=== PATIENT | female | born 1945 | race Hispanic/Latino ===

== ENCOUNTER 2017-08-12 15:55 | Inpatient (IN) | payer OTHER, MEDICARE ==
[~2017-08-12] VITALS: Ht 147.3 cm; Wt 86.3 kg
[~2017-08-12 15:55] MED LIST: DULOXETINE HCL60 MG PO; ESCITALOPRAM OX10 MG PO; ISOSORBIDE MONO30 M1 PO; JANUVIA100 M1 PO; LISINOPRIL-HCT1 EACH PO; PANTOPRAZOLE SO40 M1 PO; VENTOLIN HFA18 GM INH
--- NOTE | 2017-08-12 16:09 | ED DYSPNEA/ASTHMA COMPLAINT ---
History of Present Illness General Chief Complaint: Wheezing/Asthma Stated Complaint: "ASTHMA" PER PT SPO2 95% AT VIDEOTAPE EDITOR Source: patient, family Exam Limitations: language barrier Vital Signs & Intake/Output Vital Signs & Intake/Output Vital Signs Date Time Temp Pulse Resp B/P B/P Pulse O2 O2 Flow FiO2 Mean Ox Delivery Rate 08/21 1003 98.1 59 20 118/62 08/21 0639 98.1 59 20 118/62 95 ED Intake and Output 08/22 0000 08/21 1200 Intake Total 480 Output Total Balance 480 Intake, Oral 480 Allergies Coded Allergies: aspirin (HIVES 05/26/17) Reconcile Medications Albuterol Sulfate (Ventolin Hfa) 90 MCG HFA.AER.AD 2 PUF INH Q4-6 PRN PRN SHORTNESS OF BREATH Atorvastatin Calcium 10 MG TABLET 1 TAB PO DAILY CHOLESTEROL (Reported) Budesonide/Formoterol Fumarate (Symbicort 160-4.5 Mcg Inhaler) 160 MCG-4.5 MCG/ ACTUATION HFA.AER.AD 2 PUF INH BID asthma .. Duloxetine Hydrochloride (Cymbalta) 20 MG CAPSULE.DR 1 CAP PO DAILY MENTAL HEALTH (Reported) Escitalopram Oxalate 10 MG TABLET 1 TAB PO DAILY MENTAL HEALTH (Reported) Gabapentin 300 MG CAPSULE 1 CAP PO TID NERVE PAIN (Reported) Hydrochlorothiazide 12.5 MG CAPSULE 1 TAB PO DAILY BLOOD PRESSURE .. Insulin Aspart (Novolog) 100 UNIT/ML VIAL DM (Reported) please use as per your PCPs recommendations Losartan Potassium 50 MG TABLET 50 MG PO DAILY Blood pressure .. Melatonin 5 MG TABLET 1 TAB PO QPM SUPPLEMENT (Reported) Meloxicam 7.5 MG TABLET 1 TAB PO DAILY PAIN/INFLAMMATION (Reported) Mometasone Furoate (Nasonex) 50 MCG SPRAY.PUMP 1 SPRAY NASB TID ALLERGIES ( Reported) Pantoprazole Sodium 40 MG TABLET.DR 1 TAB PO DAILY ACID REFLUX (Reported) Prednisone 10 MG TABLET 0 PO DAILY ASTHMA PLEASE TAKE DATE TAB 08/22 2 08/23 1 .. Sitagliptin Phosphate (Januvia) 100 MG TABLET 1 TAB PO DAILY DIABETES ( Reported) Triage Note: PT FROM HOME C/O SOB/ ASTHMA ATTACK. PT BARLEY SPEAKS URDU, PTS COUSIN IN TRIAGE IS TRANSLATING FOR PT. PT STATES THAT SINCE YESTERDAY MORNING SHE HAS HAD DIFFICULTY BREATHING. PT IS WHEEZING IN TRIAGE, WORK OF BREATHING, 94% ON RA. PT STATES SHE LAST USED AN ALBUTEROL INHALER AND NEB TREATMENT AROUND 1230 WITH NO RELIEF. PT STATES SHE HAS BEEN TAKING CARE OF HER 90 YEAR OLD MOTHER WHO HAS ASTHMA AND BRONCHITIS WELL. 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 Triage Nurses Notes Reviewed? yes Onset: Abrupt Duration: day(s): (2) Timing: multiple episodes today HPI: 71 year old female with history of asthma, bradycardia x 20 years presents with 1.5 days of cough, congestion and headache. No relief with neb treatments at home. She has been taking care of her aged mother who currently is being treated for bronchitis. NO history of CHF. Patient is a nonsmoker. Patient with history of admission to hospital for asthma 1 year ago. Past History Travel History Traveled to [place] past 21 day No Medical History Any Pertinent Medical History? see below for history Cardiovascular: hypertension, hyperlipidemia, bradycardia Respiratory: asthma Endocrine: diabetes Surgical History Surgical History: cholecystectomy, cataract removal, KNEE REPLACEMENT, GASTRIC BYPASS Psychosocial History What is your primary language Setswana Tobacco Use: Never used Family History Hx Contributory? No Review of Systems Review of Systems Constitutional: Denies: fever. EENTM: Reports: no symptoms. Respiratory: Reports: cough, short of breath, sputum production. Cardiovascular: Reports: see HPI (chest tightness). Denies: palpitations, peripheral edema. GI: Denies: bloating. Genitourinary: Reports: no symptoms. Musculoskeletal: Denies: back pain. Skin: Reports: no symptoms. Neurological/Psychological: Reports: no symptoms. Hematologic/Endocrine: Denies: bruising, bleeding, polyuria, polydipsia. Immunologic/Allergic: Denies: splenectomy. All Other Systems: Reviewed and Negative Physical Exam Physical Exam General Appearance: well developed/nourished, alert, awake, anxious Head: atraumatic, normal appearance Eyes: Bilateral: normal appearance, PERRL, EOMI. Respiratory: accessory muscle use, wheezing, respiratory distress Peripheral Pulses: 2+ radial (R), 2+ radial (L) Core Measures ACS in differential dx? Yes CVA/TIA Diagnosis No Sepsis Present: No Sepsis Focused Exam Completed? No Progress Differential Diagnosis: asthma, bronchitis, CHF, pulmonary embolism, pneumonia Plan of Care: Orders Procedure Date/time Status Discharge Patient 08/21 UNK Active Laboratory Tests 08/21/17 0617: Anion Gap 8, Estimated GFR > 60, BUN/Creatinine Ratio 26.3 H, CBC w Diff NO MAN DIFF REQ, RBC 4.13 L, MCV 88.4, MCH 28.6, MCHC 32.4 L, RDW 15.1 H, MPV 10.1, Gran % 59.5, Lymphocytes % 33.1, Monocytes % 5.9, Eosinophils % 1.3, Basophils % 0.2, Absolute Granulocytes 6.5, Absolute Lymphocytes 3.6 H, Absolute Monocytes 0.6, Absolute Eosinophils 0.1, Absolute Basophils 0 ALBUTEROL NEBS, IV SOLUMEDROL Diagnostic Imaging: Viewed by Me: Radiology Read. Discussed w/RAD: Radiology Read. CXR Impression: PATIENT: MAGI POLO PRESENT AGE: 71 PATIENT ACCOUNT NO: [id number] : 47 LOCATION: [facility] ORDERING PHYSICIAN: Jaquelin Chambers MD SERVICE DATE: 08/12/17 EXAM TYPE: RAD - XRY-PORTABLE CHEST XRAY EXAMINATION: XR PORTABLE CHEST CLINICAL INFORMATION: Respiratory distress COMPARISON: Chest x-rays most recent prior dated 05/26/2017 TECHNIQUE: Portable frontal view of the chest was obtained. FINDINGS: Cardiomegaly. Lungs are clear. No acute airspace opacity. Visualized bony thorax is intact. IMPRESSION: No acute pulmonary disease. DICTATED BY: Emilia Bailon MD DATE/TIME DICTATED:08/12/171706 IMMUNOLOGY SPECIALIST:CHARLETTE DATE/ TIME TRANSCRIBED:08/12/171706 CONFIDENTIAL, DO NOT COPY WITHOUT APPROPRIATE AUTHORIZATION. <Electronically signed in Other Vendor System> SIGNED BY: Emilia Bailon MD 08/12/171710 Initial ED EKG: NSR, LVH Departure Departure Time of Disposition: 1847 Disposition: STILL A PATIENT Condition: Stable Clinical Impression Primary Impression: Asthma exacerbation Referrals: Viv Nam MD (PCP/Family) Departure Forms: Customer Survey General Discharge Information Prescriptions: Current Visit Scripts Budesonide/Formoterol Fumarate (Symbicort 160-4.5 Mcg Inhaler) 2 PUF INH BID #1 INH Ref 2 .. Hydrochlorothiazide 1 TAB PO DAILY #30 TAB .. Losartan Potassium 50 MG PO DAILY #30 TAB .. Prednisone 0 PO DAILY #3 TAB PLEASE TAKE DATE TAB 08/22 2 08/23 1 .. Admission Note Spoke With: Samantha Mora MD Documentation of Exam: Documentation of any treatments & extenuating circumstances including Concerns Regarding Discharge (functional status, medication knowledge or non-compliance, living conditions, etc.) that warrant an admission rather than observation: [TRC /NEBS, IV STEROIDS, MONITOR I/O. PULMONARY EVALUATION, CARDIOLOGY EVALUATION, PATIENT BECAME VERY LABORED WHILE AMBULATING 10 FT, OXYGEN DROPPED TO 95% BUT PATIENT HAD MUCH MORE AUDIBLE WHEEZING AND INCREASED WORK OF BREATHING Critical Care Note Critical Care Note Critical Care Time: 30-74 min
[2017-08-12 16:59] LABS: ABSOLUTE BASOPHIL COUNT 0.1 /CUMM (0.0-0.2); ABSOLUTE EOSINOPHIL COUNT 0.3 /CUMM (0.0-0.7); ABSOLUTE LYMPH COUNT 2.6 /CUMM (1.2-3.4); ABSOLUTE MONOCYTE COUNT 0.6 /CUMM (0.10-0.60); BASOPHIL % 0.9 % (0.0-2.0); EOSINOPHIL % 5.3 % (0-5); GRANULOCYTE % 36.3 % (42.2-75.2); HEMATOCRIT 35.4 % (37-47); MEAN CORPUSCULAR HGB 28.2 PG (27.0-31.0); MEAN CORPUSCULAR HGB CONC 31.8 G/DL (33.0-37.0); MEAN CORPUSCULAR VOLUME 88.7 FL (81.0-99.0); MEAN PLATELET VOLUME 9.1 FL (7.4-10.4); PLATELET COUNT 184 /CUMM (130-400); RED BLOOD CELL CT 3.99 /CUMM (4.20-5.40); WHITE BLOOD CELL COUNT 5.6 /CUMM (4.8-10.8)
--- NOTE | 2017-08-12 17:11 | RADIOLOGY REPORT ---
EXAMINATION: XR PORTABLE CHEST CLINICAL INFORMATION: Respiratory distress COMPARISON: Chest x-rays most recent prior dated 05/26/2017 TECHNIQUE: Portable frontal view of the chest was obtained. FINDINGS: Cardiomegaly. Lungs are clear. No acute airspace opacity. Visualized bony thorax is intact. IMPRESSION: No acute pulmonary disease.
--- NOTE | 2017-08-12 19:35 | History & Physical ---
Bryce HO,[facility] 08/12/171934: General Information and HPI MD Statement: I have seen and personally examined MAGI POLO and documented this H&P. The patient is a 71 year old F who presented with a patient stated chief complaint of [sob]. Source of Information: patient, family Exam Limitations: language barrier History of Present Illness: 71 yo F pmhx asthma, diabetes, htn, hld, bradycardia presenting for SOB. Pt is taiwanese speaking only and hx is given via translation from her cousin. Patient states that her SOB has been worsening the past 2-3 hrs. Wheezing started yesterday. Pt was with family today after family's surgery and was found to have increased wheezing which prompted the family member to drive the pt to the ED. Pt states she had had similar sx in the past which has led to admissions for asthma exascerbation. She had 1-2 episodes of asthma exascerbation weekly but is now having night time symptoms several times throughout the night for the past 2 -3 nights. Pt states she has been using nebs more often (q4hrs) which she does not take regularly. States that she has been using her inhaler more often (q4hrs ) which she only takes 1x/day at baseline. States that she has cough - nonproductive and clear but worst at night. She also complains of headaches and congestion which starts at her frontal sinus and spread b/l. States she has chills, [place], dizzyness, light headedness. Also complaining of dysuria x1 week. Complains of CP, non radiating. States palpitations are associated with coughs. She is currently taking care of her mother who has bronchitis. The patient states that she lost her grand daughter in May and since then, her symptoms have worsened She denies any fevers, or GI bleed. She does complain of abd pain but states pain is unchagned and chronic. Allergies/Medications Allergies: Coded Allergies: aspirin (HIVES 05/26/17) Home Med list Albuterol Sulfate (Ventolin Hfa) 90 MCG HFA.AER.AD 2 PUF INH Q4-6 PRN PRN SHORTNESS OF BREATH Atorvastatin Calcium 10 MG TABLET 1 TAB PO DAILY CHOLESTEROL (Reported) Duloxetine Hydrochloride (Cymbalta) 20 MG CAPSULE. 1 CAP PO DAILY MENTAL HEALTH (Reported) Escitalopram Oxalate 10 MG TABLET 1 TAB PO DAILY MENTAL HEALTH (Reported) Gabapentin 300 MG CAPSULE 1 CAP PO TID NERVE PAIN (Reported) Insulin Aspart (Novolog) 100 UNIT/ML VIAL DM (Reported) Lisinopril/Hydrochlorothiazide (Lisinopril-Hctz 20-12.5 MG Tab) 20 MG-12.5 MG TABLET 1 TAB PO DAILY BP (Reported) Melatonin 5 MG TABLET 1 TAB PO QPM SUPPLEMENT (Reported) Meloxicam 7.5 MG TABLET 1 TAB PO DAILY PAIN/INFLAMMATION (Reported) Mometasone Furoate (Nasonex) 50 MCG SPRAY.PUMP 1 SPRAY NASB TID ALLERGIES ( Reported) Pantoprazole Sodium 40 MG TABLET.DR 1 TAB PO DAILY ACID REFLUX (Reported) Sitagliptin Phosphate (Januvia) 100 MG TABLET 1 TAB PO DAILY DIABETES ( Reported) Past History Travel History Traveled to [place] past 21 day No Medical History Cardiovascular: hypertension, hyperlipidemia, bradycardia Respiratory: asthma Endocrine: diabetes Surgical History Surgical History: cholecystectomy, cataract removal, KNEE REPLACEMENT GASTRIC BYPASS Review of Systems Review of Systems Constitutional: Reports: see HPI, chills. EENTM: Reports: blurred vision, nasal congestion. Respiratory: Reports: cough, short of breath, wheezing. GI: Reports: see HPI. Genitourinary: Reports: see HPI, dysuria. Exam & Diagnostic Data Last 24 Hrs of Vital Signs/I&O Vital Signs Date Time Temp Pulse Resp B/P B/P Pulse O2 O2 Flow FiO2 Mean Ox Delivery Rate 08/13 0000 Nasal 1.0L Cannula 08/12 2304 98.3 60 28 132/78 91 Nasal Cannula 08/12 2229 Nasal 1.0L Cannula 08/12 2108 98.3 80 24 148/65 93 Nasal 2.0L Cannula 08/12 1832 96 Nasal 1.0L Cannula 08/12 1809 97.7 60 24 154/76 99 Nasal 2.0L Cannula 08/12 1630 100 Nasal 2.0L Cannula 08/12 1614 100 Nasal 2.0L Cannula 08/12 1603 97.8 54 20 158/78 94 Room Air Intake & Output 08/13 0800 08/13 0000 08/12 1600 Intake Total 120 Output Total Balance 120 Intake, Oral 120 Patient 215 lb Weight Weight Standing Scale Measurement Method Physical Exam General Appearance Alert, Oriented X3, Cooperative, taiwanese speaking only HEENT frontal and maxillary sinus tenderness, normal ear exam Cardiovascular 2+ radial and pedal pulses, chest tender to palpation, systolic murmur Lungs Clear to Auscultation, Normal Air Movement Abdomen decrease abd sounds, soft, nontender Neurological CN2-12 grossly intact Extremities no edema of LE Last 24 Hrs of Labs/Mariusz: Laboratory Tests 08/13/17 0000: Urine Color YEL, Urine Clarity CLEAR, Urine pH 6.0, Ur Specific [place] 1.020, Urine Protein NEG, Urine Ketones NEG, Urine Nitrite NEG, Urine Bilirubin NEG, Urine Urobilinogen 2.0 H, Ur Leukocyte Esterase NEG, Ur Microscopic EXAM NOT REQUIRED, Urine Hemoglobin NEG, Urine Glucose 100 H 08/12/17 2250: D-Dimer High Sensitivty 458 H 08/12/17 1917: Lactic Acid Cancelled 08/12/17 1645: Anion Gap 9, Estimated GFR > 60, BUN/Creatinine Ratio 21.3, Glucose 97, Lactic Acid 0.8, Calcium 9.0, Total Bilirubin 0.2, AST 28, ALT 30, Alkaline Phosphatase 92, Troponin I < 0.01, Ubq-H-Hsapszsflmz Pept 247 H, Total Protein 6.0 L, Albumin 3.3 L, Globulin 2.7, Albumin/Globulin Ratio 1.2, CBC w Diff NO MAN DIFF REQ, RBC 3.99 L, MCV 88.7, MCH 28.2, MCHC 31.8 L, RDW 15.0 H, MPV 9.1, Gran % 36.3 L, Lymphocytes % 46.2, Monocytes % 11.3 H, Eosinophils % 5.3 H, Basophils % 0.9, Absolute Granulocytes 2.0, Absolute Lymphocytes 2.6, Absolute Monocytes 0.6, Absolute Eosinophils 0.3, Absolute Basophils 0.1 Microbiology 08/137 NASOPHARYN: Influenza Virus A & B Rapid Smear - COMP 08/13 0000 URINE ROUT: Urine Culture - RECD Assessment/Plan Assessment: 71 yo F pmhx asthma, diabetes, htn, hld, bradycardia presenting for SOB most likely 2/2 asthma exascerbation #asthma exascerbation cxr: negative probnp 247 -cont trc nebs, solumedrol IV #r/o acs vs costochrondritis More likely costochrondritis as pain is reproducible trops <.01 -repeat trops @ 2am and 10am #diabetes -novolog sliding scale #chronic medical conditions:insomnia, htn, chronic pain, hld, gerd, -cont melatnon, -cont lisinopril, hctz -cont gabapentin, tramadol -cont atorvastain -cont omeprazole #DVT ppx heparin subq #DNR DNI As Ranked By This Provider Problem List: 1. Asthma exacerbation 2. Chest pain Core Measures/Misc (02/21) Acute Coronary Syndrome ACS Diagnosis: No Congestive Heart Failure Congestive Heart Failure Diagnosis No Cerebrovascular Accident CVA/TIA Diagnosis: No VTE (View Protocol) VTE Risk Factors Acute Medical Illness No Mechanical VTE Prophylaxis d/t Other No VTE Pharm Prophylaxis d/t NA PharmProphylax ordered Sepsis (View protocol) Sepsis Present: No Joy Morley 08/12/17 2238: Resident Review Statement Resident Statement: examined this patient, discussed with digital media intern, agreed with digital media intern, reviewed images, amended to note Other Findings: Ms Thomason is a 71-year-old woman with a past history of asthma, bradycardia, depression gastric bypass, came to the hospital with chief concerns of worsening dyspnea at rest X 1 day, lightheadedness, nasal congestion, dysuria, and chest discomfort associated w/ breathing. She used albuterol nebs upto 6x in a day, with no relief. She started developing worsening symptoms since three months after a in her family, and has been having symptoms almost every other day in a week, with nocturnal symptoms in the same frequency. She was using her rescue inhaler until recently when she started using her neb machine. She was also associated w/ chest pressure located in the lower part of the left side of chest with no radiation, associated w/ breathing w/ no radiation. She also had nasal congestion, non productive cough that started in the last few days. Occassional palpitations when she uses her nebs, and has dyspnea. Reports that she is minimally ambulatory at baseline, but does take care of her old mother daily without any limitations. At the time of admission-vitals temperature 97.8, pulse rate 54, blood pressure 158/78, respiration 20, pulse ox 94% on room air. On examination: General Exam: AAOx3, mild acute distress, Skin: No rashes, no breakdown HEENT: PERRLA, EOMI Neck: Supple, No JVD No cervical lymphadenopathy CVS: Reg Rate, Normal S1,S2, systolic murmur Resp: decreased air entry, no ronchi/rales, no use of respiratory muscles Abdomen: Soft, No tenderness, Normal Bowel Sounds Neuro: Normal Speech, Strength 5/5 b/l x 4 extremities, Sensation intact, CN III -XII NL, Reflexes 2+ Extremities: No cyanosis, pedal edema trace, RLE slightly more swollen > Left with no erythema or tenderness. WBC 5.6 w/ eosinophilia, hematocrit 35.4, platelets 184. Sodium 140, potassium 4.4, chloride 106, BUN 17, creatinine 0.8, proBNP 247. Chest f-dex-ilnxzrps no acute pulmonary disease. Last echocardiogram was done 06/12/2015 which was read by Davin Mattson revealed Mild concentric left ventricular hypertrophy. Normal left ventricular ejection fraction visually estimated at >65 The left atrium is normal in size. Mild thickening/calcification of the mitral valve leaflets. No mitral regurgitation. Focal thickening of the aortic valve cusps. No aortic stenosis. Pulmonary artery systolic pressure is mildly elevated at 35-40 mm Hg. Etiology in her case is slightly severe persistent asthma; symptoms of dyspnea, chest tightness, cough, tachycardia consistent with asthma. She has a persistent respiratory distress in the last 24 hours, which would favor an inpatient admission. She does not have any prior intubation or steroid use. Other etiologies such as allergies, myocardial ischemia, elevated pulmonary artery pressures secondary to obesity/asthma, pneumonia, pulmonary embolism could be kept and differentials. Problems: #1 sev persistent asthma #2 history of bradycardia #3 Rule out ACS #4 Rule out PE #5 ? r/o UTI #6 history of Bradycardia #7 Diabetes Plan: #1 admit the patient to telemetry given her history of bradycardia #2 serial EKGs, troponins to rule out WI #3 for treatment of asthma, she was given IV Solu-Medrol in the ED; continue Solu-Medrol IV 40 mg every 8 which could be tapered off quickly if the symptoms resolve. She should be treated with short-acting beta agonist at this time, along with a anticholinergic. #4 obtained records from her PCP confirming her medications. #5 restart antihypertensives, lisinopril, hydrocodone as an a.m. #6 avoid beta blockers #7 continue her antidepressants Cymbalta. #8 patient allergy to aspirin, and was not given any aspirin in the ED. Would administer if she has any chest pain suggestive of WI or elevated and troponin. #9 check d-dimer, if elevated above 500 would consider CTA #10 check lower activity Dopplers to rule out any DVT. Housekeeping: #1 DVT prophylaxis-subcutaneous heparin #2 medication reconciliation-done, but confirm medications from her primary care physician. #3 GI prophylaxis-Protonix #4 DO NOT RESUSCITATE/DO NOT INTUBATE-as per the patient, and her family member. Samantha Mora 08/13/17 0236: Attending MD Review Statement Attending Statement Attending MD Statement: examined this patient, discuss w/resident/PA/WORKERS COMPENSATION EXAMINER, agreed w/resident/PA/WORKERS COMPENSATION EXAMINER, discussed with family, reviewed EMR data (avail), reviewed images, amended to note Attending Assessment/Plan: CC: Shortness of breath PMH: Depression, HTN, HLD, bradycardia, asthma, DM, sinusitis Is obtain from patient's relative as patient speaks mostly Zambian. Patient was brought in ER for persistent shortness of breath. Her symptoms started approximately 3-4 days back with worsening breathing, exertional and at rest, associated with wheezing, and nonproductive cough. Since yesterday patient was also noticing central substernal chest pain, going to her left side of the chest under the breast, related to worsening shortness of breath. Patient has been using nebulization every 4 hours at home without significant relief, has been up whole night with shortness of breath. She also endorses frontal headache, left ear pain, urinary burning since last 2 weeks. She had chills at home but no fever, had nausea and mild dizziness, no history of loss of consciousness, neurological weakness. Patient has been taking care of her sick mother who also has bronchitis and asthma. Vitals: Afebrile, pulse in 60s, RR 24, blood pressure 158/78, saturating 94% on 2 L nasal cannula. On exam: A O 3, cooperative, mild respiratory distress, neck supple, JVD normal , no lymphadenopathy, mucosa dry, no focal neurological deficit, trace leg edema , right lower extremity appears slightly bigger than left lower extremity, no obvious skin rashes or inflammation CVS: S1-S2, RRR, systolic murmur. RS: Bilateral wheezing, no crackles, decreased air entry bilaterally bases. Abdomen: Soft, NT, ND, bowel sounds present. CXR: No acute pulmonary disease. Assessment and plan 71-year-old female with above-mentioned past medical history presented in ER for worsening of shortness of breath since last 2-3 days, exertional and at rest, associated with wheezing, nonproductive cough, chills, chest pain, frontal headache and ear pain. Vitals stable, on examination she has bilateral expiratory wheezing, no crackles or JVD, trace leg edema, and equal leg swelling R>L. labs unremarkable except monocytosis and eosinophilia, troponin and ECG normal. ProBNP 247. Patient appears to have asthma exacerbation. Given her comorbidities ACS should be ruled out given her chest pain. PE should be ruled out with d-dimer. She has unequal leg swellings probably secondary to osteoarthritis , DVT should be ruled out patient is not active as much secondary to arthritis. As this is asthma exacerbation, we will hold off antibiotics for now, check influenza. + Asthma exacerbation + Chest pain r/o ACS + Hx of Depression, HTN, HLD, bradycardia, asthma, DM, sinusitis - Admit to telemetry - Try to wean off oxygen - IV methylprednisolone 40 mg every 8 hours - TRC nebulization with albuterol scheduled and when necessary - Mucinex scheduled twice a day - Continue rest of the home medications, except sitagliptin, continue sliding scale insulin - Serial troponin and ECG - Added d-dimer to the sample in lab - Check influenza rapid flu - Adequate pain control - DVT prophylaxis - Flonase - Cardiology consult - UA urine culture, start antibiotics if suggestive of UTI - DVT doppler Franklyn LE
[2017-08-12] MEDS ORDERED: GABAPENTIN300 M2 PO (20:12)
[2017-08-12] MEDS ORDERED: CYMBALTA20 M1 PO (20:24)
[2017-08-12] MEDS ORDERED: ATORVASTATIN CA10 M1 PO (20:25)
[2017-08-12] MEDS ORDERED: MELATONIN5 M7 PO (20:29)
[2017-08-12] MEDS ORDERED: NOVOLOG100 UNIT/2 SC (20:30)
[2017-08-12] MEDS ORDERED: MELOXICAM7.5 M1 PO (20:30)
[2017-08-12] MEDS ORDERED: NASONEX17 GM NASB (20:31)
[2017-08-12 23:04] VITALS: BP 132/78
--- NOTE | 2017-08-13 02:40 | Admission Certification ---
Admission Certification Certification Statement - As attending physician, I certify that at the time of - admission, based on clinical presentation, severity of - symptoms, need for further diagnostic testing and - therapeutic interventions, and risk of adverse outcomes - without in-hospital treatment, in my clinical assessment, - this patient requires an acute hospital stay for a minimum - of two nights or longer. I have also considered psychsocial - factors such as support system, advanced age, financial - issues, cognitive issues, and failed out-patient treatments, - past re-admission history, safety of patient, and lack of - compliance as applicable. Specific rationale supporting this admission is: Asthma exacerbation
[2017-08-13 06:17] VITALS: BP 118/62
--- NOTE | 2017-08-13 07:59 | PN- Housestaff ---
See Addendum Subjective Follow-up For: asthma exacerbation Tele-Events Since Last Visit: sinus bradycardia HR 38-52 Subjective: complaining of significant wheezing and dyspnea, on supplemental oxygen via nasal cannula afebrile Review of Systems Constitutional: Reports: see HPI. Objective Last 24 Hrs of Vital Signs/I&O Vital Signs Date Time Temp Pulse Resp B/P B/P Pulse O2 O2 Flow FiO2 Mean Ox Delivery Rate 08/13 1025 Nasal 1.0L Cannula 08/13 0909 58 120/60 08/13 0830 93 Nasal 1.0L Cannula 08/13 0617 98.0 48 18 118/62 93 08/13 0000 Nasal 1.0L Cannula 08/12 2304 98.3 60 28 132/78 91 Nasal Cannula 08/12 2229 Nasal 1.0L Cannula 08/12 2108 98.3 80 24 148/65 93 Nasal 2.0L Cannula 08/12 1832 96 Nasal 1.0L Cannula 08/12 1809 97.7 60 24 154/76 99 Nasal 2.0L Cannula 08/12 1630 100 Nasal 2.0L Cannula 08/12 1614 100 Nasal 2.0L Cannula 08/12 1603 97.8 54 20 158/78 94 Room Air Intake & Output 08/13 1600 08/13 0800 08/13 0000 Intake Total 10 120 Output Total 500 Balance -490 120 Intake, IV 10 Intake, Oral 120 Output, Urine 500 Patient 97.607 kg Weight Weight Standing Scale Measurement Method Physical Exam General Appearance: Alert, Oriented X3, Cooperative, No Acute Distress, obese Cardiovascular: Normal S1, Normal S2, No Murmurs, bradycardic Lungs: significant wheezing diffusely but no respiratory distress, adequate air movement, no accessory muscle use or tachypnea Abdomen: Normal Bowel Sounds, Soft, No Tenderness, No Masses Extremities: No Clubbing, No Cyanosis, Normal Pulses, bilateral LE edema 1+ Current Medications: Current Medications Sig/Jan Start time Last Medication Dose Route Stop Time Status Admin Acetaminophen 650 MG Q8P PRN 08/12 2245 AC 08/13 PO 0615 Albuterol Sulfate 3 ML EVERY 4 HRS/AWAKE 08/13 1200 AC INH Albuterol Sulfate 3 ML Q4H PRN 08/12 2200 DC 08/13 INH 0824 Albuterol Sulfate 3 ML ONCE ONE 08/12 1830 DC 08/12 INH 08/12 1831 1832 Albuterol Sulfate 3 ML ONCE ONE 08/12 1630 DC 08/12 INH 08/12 1631 1620 Albuterol Sulfate 3 ML ONCE ONE 08/12 1615 DC /08 INH 08/12 1616 1614 Aspirin 325 MG ONCE ONE 08/12 2245 CAN PO 08/12 2246 Atorvastatin Calcium 10 MG DAILY 08/13 1000 AC 08/13 PO 0910 Duloxetine HCl 20 MG DAILY 08/13 1000 AC 08/13 PO 0910 Fluticasone 2 SPRAY DAILY 08/13 1000 AC 08/13 Propionate SALEEM 0910 Gabapentin 300 MG TID 08/13 1000 AC 08/13 PO 0910 Guaifenesin 600 MG Q12 08/13 1000 AC 08/13 PO 0910 Heparin Sodium 5,000 UNIT Q8 08/12 2200 AC 08/13 (Porcine) SC 0614 Hydrochlorothiazide 12.5 MG DAILY 08/13 1000 AC 08/13 PO 0910 Influenza Virus 0.5 ML ONCE ONE 08/12 2300 DC Vaccine IM 08/12 2301 Insulin Aspart 0 TIDAC 08/12 2230 AC 08/13 SC 0827 Ipratropium [place] 2.5 ML Q4 HRS NEEDED PRN 08/13 0500 DC INH Ipratropium [place] 2.5 ML ONCE ONE 08/12 2200 DC INH 08/12 2201 Ipratropium [place] 2.5 ML ONCE ONE 08/12 1830 DC /08 INH 08/12 1831 1831 Ipratropium [place] 2.5 ML ONCE ONE 08/12 1615 DC 08 INH 08/12 1616 1614 Lisinopril 20 MG DAILY 08/13 1000 AC 08/13 PO 0909 Melatonin 5 MG QPM 08/13 2200 AC PO Methylprednisolone 40 MG Q8 08/13 0600 AC 08/13 IV 0610 Methylprednisolone 0 .STK-MED ONE 08/12 1712 DC .ROUTE Methylprednisolone 125 MG ONCE ONE 08/12 1630 DC 08/12 IV 08/12 1631 1715 Omeprazole 40 MG DAILY AC 08/13 0700 AC 08/13 PO 0610 Sodium Chloride 2 SPRAY Q4P PRN 08/12 2245 AC SALEEM Tramadol HCl 50 MG Q8P PRN 08/12 2245 AC 08/13 PO 1057 Last 24 Hrs of Lab/Mariusz Results Last 24 Hrs of Labs/Mics: Laboratory Tests 08/13/17 0630: Anion Gap 7, Estimated GFR > 60, BUN/Creatinine Ratio 22.9, Troponin I < 0.01, CBC w Diff NO MAN DIFF REQ, RBC 3.88 L, MCV 88.3, MCH 28.9, MCHC 32.8 L, RDW 14.6 H, MPV 10.0, Gran % 62.2, Lymphocytes % 33.5, Monocytes % 3.9, Eosinophils % 0.2, Basophils % 0.2, Absolute Granulocytes 2.1, Absolute Lymphocytes 1.1 L, Absolute Monocytes 0.1, Absolute Eosinophils 0, Absolute Basophils 0 08/13/17 0235: Troponin I Cancelled 08/13/17 0000: Urine Color YEL, Urine Clarity CLEAR, Urine pH 6.0, Ur Specific [place] 1.020, Urine Protein NEG, Urine Ketones NEG, Urine Nitrite NEG, Urine Bilirubin NEG, Urine Urobilinogen 2.0 H, Ur Leukocyte Esterase NEG, Ur Microscopic EXAM NOT REQUIRED, Urine Hemoglobin NEG, Urine Glucose 100 H 08/12/17 2250: D-Dimer High Sensitivty 458 H 08/12/17 1917: Lactic Acid Cancelled 08/12/17 1645: Anion Gap 9, Estimated GFR > 60, BUN/Creatinine Ratio 21.3, Glucose 97, Lactic Acid 0.8, Calcium 9.0, Total Bilirubin 0.2, AST 28, ALT 30, Alkaline Phosphatase 92, Troponin I < 0.01, [id number] Pept 247 H, Total Protein 6.0 L, Albumin 3.3 L, Globulin 2.7, Albumin/Globulin Ratio 1.2, CBC w Diff NO MAN DIFF REQ, RBC 3.99 L, MCV 88.7, MCH 28.2, MCHC 31.8 L, RDW 15.0 H, MPV 9.1, Gran % 36.3 L, Lymphocytes % 46.2, Monocytes % 11.3 H, Eosinophils % 5.3 H, Basophils % 0.9, Absolute Granulocytes 2.0, Absolute Lymphocytes 2.6, Absolute Monocytes 0.6, Absolute Eosinophils 0.3, Absolute Basophils 0.1 Microbiology 08/13 316 NASOPHARYN: Influenza Virus A & B Rapid Smear - COMP 08/13 0000 URINE ROUT: Urine Culture - RECD Assessment/Plan Assessment: 71 year old female with past medical history significant for asthma, diabetes, HTN, HLD, and bradycardia presented with complaints of wheezing and dyspnea. Asthma exacerbation: eosinophils elevated on cbc, h/o atopy and aspirin allergy Never smoker, exacerbated by environmental allergies, recent sick contacts Titrate supplemental oxygen to an SpO2 > 92% TRC evaluation Nebulized albuterol Measure peak flow Pulmology consultation, appreciate recommendations Received 125mg solumedrol IV, continue 40mg IV Q8H today Convert to PO prednisone tomorrow Previous ED visit 05/2017 with similar symptoms Chest CTA done at that negative for PE, +ground glass and small airway disease d-dimer remains elevated, no plan to repeat CTA Chest at this time Bradycardia: Sinus randall HR [id number]-dzydbxy negative chronotropic agents Cardiology consulted, appreciate recommendations May benefit from outpatient nuclear stress test DM: Accuchecks TIDAC/HS Novolog sliding scale HTN: Continue HCTZ ACEi changes to ARB HLD: Continue statin therapy Morbid obesity Class III-history of gastric bypass PO PPI BID Diabetic diet DVT ppx DNR/DNI Problem List: 1. Chest pain 2. Dyspnea 3. Asthma exacerbation Pain Ratin Pain Location: n/a Pain Goal: Pain 4 or less Pain Plan: prn Tomorrow's Labs & Rationales: cbc, bep
[2017-08-13 08:18] LABS: ABSOLUTE BASOPHIL COUNT 0 /CUMM (0.0-0.2); ABSOLUTE EOSINOPHIL COUNT 0 /CUMM (0.0-0.7); ABSOLUTE GRANULOCYTE CT 2.1 /CUMM (1.4-6.5); ABSOLUTE LYMPH COUNT 1.1 /CUMM (1.2-3.4); ABSOLUTE MONOCYTE COUNT 0.1 /CUMM (0.10-0.60); BASOPHIL % 0.2 % (0.0-2.0); EOSINOPHIL % 0.2 % (0-5); HEMATOCRIT 34.3 % (37-47); MEAN CORPUSCULAR HGB 28.9 PG (27.0-31.0); MEAN CORPUSCULAR HGB CONC 32.8 G/DL (33.0-37.0); MEAN CORPUSCULAR VOLUME 88.3 FL (81.0-99.0); PLATELET COUNT 184 /CUMM (130-400); RBC DISTRIBUTION WIDTH 14.6 % (11.5-14.5); RED BLOOD CELL CT 3.88 /CUMM (4.20-5.40); WHITE BLOOD CELL COUNT 3.3 /CUMM (4.8-10.8)
[2017-08-13 08:29] LABS: GRANULOCYTE % 62.2 % (42.2-75.2)
--- NOTE | 2017-08-13 12:56 | Cons- Pulmonary ---
General Information and HPI Consulting Request Date of Consult: 08/13/17 Requested By: MED TEAM History of Present Illness: 71 yo F pmhx asthma, diabetes, htn, hld, bradycardia presenting for SOB. Patient states that her SOB has been worsening wheezing started yesterday. Pt states she had had similar sx in the past which has led to admissions for asthma exascerbation. She had 1-2 episodes of asthma exascerbation weekly but is now having night time symptoms several times throughout the night for the past 2 -3 nights. Pt states she has been using nebs more often (q4hrs) which she does not take regularly. States that she has been using her inhaler more often (q4hrs) which she only takes 1x/day at baseline. States that she has cough - nonproductive and clear but worst at night. She also complains of headaches and congestion which starts at her frontal sinus and spread b/l. States she has chills, [place], dizzyness, light headedness. Also complaining of dysuria x1 week. Complains of CP, non radiating. States palpitations are associated with coughs. She is currently taking care of her mother who has bronchitis. The patient states that she lost her grand daughter in May and since then, her symptoms have worsened She denies any fevers, or GI bleed. She does complain of abd pain but states pain is unchagned and chronic. Allergies/Medications Allergies: Coded Allergies: aspirin (HIVES 05/26/17) Home Med List: Albuterol Sulfate (Ventolin Hfa) 90 MCG HFA.AER.AD 2 PUF INH Q4-6 PRN PRN SHORTNESS OF BREATH Atorvastatin Calcium 10 MG TABLET 1 TAB PO DAILY CHOLESTEROL (Reported) Duloxetine Hydrochloride (Cymbalta) 20 MG CAPSULE.DR 1 CAP PO DAILY MENTAL HEALTH (Reported) Escitalopram Oxalate 10 MG TABLET 1 TAB PO DAILY MENTAL HEALTH (Reported) Gabapentin 300 MG CAPSULE 1 CAP PO TID NERVE PAIN (Reported) Insulin Aspart (Novolog) 100 UNIT/ML VIAL DM (Reported) Lisinopril/Hydrochlorothiazide (Lisinopril-Hctz 20-12.5 MG Tab) 20 MG-12.5 MG TABLET 1 TAB PO DAILY BP (Reported) Melatonin 5 MG TABLET 1 TAB PO QPM SUPPLEMENT (Reported) Meloxicam 7.5 MG TABLET 1 TAB PO DAILY PAIN/INFLAMMATION (Reported) Mometasone Furoate (Nasonex) 50 MCG SPRAY.PUMP 1 SPRAY NASB TID ALLERGIES ( Reported) Pantoprazole Sodium 40 MG TABLET.DR 1 TAB PO DAILY ACID REFLUX (Reported) Sitagliptin Phosphate (Januvia) 100 MG TABLET 1 TAB PO DAILY DIABETES ( Reported) Review of Systems Review of Systems Constitutional: Reports: see HPI. Comments Constitutional: Reports: see HPI, chills. EENTM: Reports: blurred vision, nasal congestion. Respiratory: Reports: cough, short of breath, wheezing. GI: Reports: see HPI. Genitourinary: Reports: see HPI, dysuria. Past History Travel History Traveled to [place] past 21 day No Medical History Cardiovascular: hypertension, hyperlipidemia, bradycardia Respiratory: asthma Endocrine: diabetes Surgical History Surgical History: cholecystectomy, cataract removal, KNEE REPLACEMENT GASTRIC BYPASS Psychosocial History Smoking Status: Never Smoked Exam & Diagnostic Data Last 24 Hrs of Vital Signs/I&O Vital Signs Date Time Temp Pulse Resp B/P B/P Pulse O2 O2 Flow FiO2 Mean Ox Delivery Rate 08/13 1025 Nasal 1.0L Cannula 08/13 0909 58 120/60 08/13 0830 93 Nasal 1.0L Cannula 08/13 0800 96 Nasal 1.0L Cannula 08/13 0617 98.0 48 18 118/62 93 08/13 0000 Nasal 1.0L Cannula 08/12 2304 98.3 60 28 132/78 91 Nasal Cannula 08/12 2229 Nasal 1.0L Cannula 08/12 2108 98.3 80 24 148/65 93 Nasal 2.0L Cannula 08/12 1832 96 Nasal 1.0L Cannula 08/12 1809 97.7 60 24 154/76 99 Nasal 2.0L Cannula 08/12 1630 100 Nasal 2.0L Cannula 08/12 1614 100 Nasal 2.0L Cannula 08/12 1603 97.8 54 20 158/78 94 Room Air Intake & Output 08/13 1600 08/13 0800 08/13 0000 Intake Total 10 120 Output Total 500 Balance -490 120 Intake, IV 10 Intake, Oral 120 Output, Urine 500 Patient 215 lb Weight Weight Standing Scale Measurement Method Last 48 Hrs of Labs/Mariusz: Laboratory Tests 08/13/17 0630: Anion Gap 7, Estimated GFR > 60, BUN/Creatinine Ratio 22.9, Troponin I < 0.01, CBC w Diff NO MAN DIFF REQ, RBC 3.88 L, MCV 88.3, MCH 28.9, MCHC 32.8 L, RDW 14.6 H, MPV 10.0, Gran % 62.2, Lymphocytes % 33.5, Monocytes % 3.9, Eosinophils % 0.2, Basophils % 0.2, Absolute Granulocytes 2.1, Absolute Lymphocytes 1.1 L, Absolute Monocytes 0.1, Absolute Eosinophils 0, Absolute Basophils 0 08/13/17 0235: Troponin I Cancelled 08/13/17 0000: Urine Color YEL, Urine Clarity CLEAR, Urine pH 6.0, Ur Specific [place] 1.020, Urine Protein NEG, Urine Ketones NEG, Urine Nitrite NEG, Urine Bilirubin NEG, Urine Urobilinogen 2.0 H, Ur Leukocyte Esterase NEG, Ur Microscopic EXAM NOT REQUIRED, Urine Hemoglobin NEG, Urine Glucose 100 H 08/12/17 2250: D-Dimer High Sensitivty 458 H 08/12/17 1917: Lactic Acid Cancelled 08/12/17 1645: Anion Gap 9, Estimated GFR > 60, BUN/Creatinine Ratio 21.3, Glucose 97, Lactic Acid 0.8, Calcium 9.0, Total Bilirubin 0.2, AST 28, ALT 30, Alkaline Phosphatase 92, Troponin I < 0.01, [id number]-[id number] Pept 247 H, Total Protein 6.0 L, Albumin 3.3 L, Globulin 2.7, Albumin/Globulin Ratio 1.2, CBC w Diff NO MAN DIFF REQ, RBC 3.99 L, MCV 88.7, MCH 28.2, MCHC 31.8 L, RDW 15.0 H, MPV 9.1, Gran % 36.3 L, Lymphocytes % 46.2, Monocytes % 11.3 H, Eosinophils % 5.3 H, Basophils % 0.9, Absolute Granulocytes 2.0, Absolute Lymphocytes 2.6, Absolute Monocytes 0.6, Absolute Eosinophils 0.3, Absolute Basophils 0.1 Microbiology 08/13 316 NASOPHARYN: Influenza Virus A & B Rapid Smear - COMP Assessment/Plan Impression/Plan: General Appearance Alert, Oriented X3, Cooperative, persian speaking only HEENT frontal and maxillary sinus tenderness, normal ear exam Cardiovascular 2+ radial and pedal pulses, chest tender to palpation, systolic murmur Lungs Clear to Auscultation, mild wheezing and most of the wheezing is from her vocal cord as she may have vc dysfunction Normal Air Movement Abdomen decrease abd sounds, soft, nontender Neurological CN2-12 grossly intact Extremities no edema of LE CXR normal CT in dec No pulmonary embolus demonstrated. No consolidation. There are scattered areas of air trapping and a few small nonspecific lung cysts. There is some groundglass disease. Possibilities include alveolitis or small airways disease. IMPRESSION 71 year old female with past medical history significant for asthma, diabetes, HTN, HLD, Previous gastric bypass surg, recurrent gerd now with bradycardia - presented with complaints of wheezing and dyspnea. ISSUES * REactive airway disease with asthma with acute exacerbation with eosinophilia * Sig evidence of tracheomalacia vs vc dysfunction as her wheezing appears mainly from the vocal cord area on excertion * GERD with gastric bypass with prob recurrent regurg due to dietary noncompliance causing most of her symptoms probably * Small airway disease and airtrapping noted in the ct prob due to above * Morbid obesity with previous gastric bypass with clinical evidence of UARS / sleep apnea * Kelvin on admission - needs eval * DM/HTN on ACI with vc dysfunction REC * REduce steroid to 50 mg and wean in 10 days * KEep hob up * Po ppi and increase to bid for now * Nebs atc duoneb * Add symbicort 160 bid and dc flovent * DC lisinopril and change to losartan 50mg * COnt current meds * Hold tramadol WIll follow closely Consult Acknowledgment - Thank you for your consult request.
--- NOTE | 2017-08-13 13:09 | ULTRASOUND REPORT ---
EXAMINATION: US TRIPLEX OF THE RIGHT LOWER EXTREMITY CLINICAL INFORMATION: DVT suspected with lower extremity swelling and slightly elevated D-dimer COMPARISON: None. TECHNIQUE: Color-flow triplex imaging with spectral analysis and compression Doppler were performed on the right lower extremity. FINDINGS: Only the right common femoral vein, the GSV and the profunda femoris vein along with the femoral vein in the upper thigh were evaluated. The patient demanded that the exam stop because of pain with compression. The left side was not examined. Respiratory variation, normal compression and augmented flow are noted throughout in the visualized common right femoral vein, right superficial femoral vein in the thigh and the right profunda femoral vein along with the GSV near the junction. The other veins of the right lower extremity were not examined. IMPRESSION: Limited study with no DVT seen in the right thigh and groin. The patient refused an exam of the left leg.
--- NOTE | 2017-08-13 13:24 | Cons- Cardiology ---
General Information and HPI Consulting Request Date of Consult: 08/13/17 Requested By: Navneet Garcia MD Reason for Consult: Bradycardia. Source of Information: patient, old records Exam Limitations: poor historian, language barrier History of Present Illness: Mrs. Paddy Rojas is a 71-year-old Uz[place]-speaking, female with a history of hypertension, dyslipidemia, diabetes mellitus, previous syncope, bradycardia of uncertain etiology, and asthma with previous exacerbations who presented to the ED on 08/12/2017 with complaints of shortness of breath, wheezing, intermittent chills, and a nonproductive cough for the prior 24 hours. She also admits to shortness of breath on exertion, intermittent chest discomfort, intermittent palpitations, dizziness, lightheadedness, dysuria, etc. She denies any recent fever, nausea, or vomiting. She also denies any history of Lyme disease. She has been caring for her mother who has bronchitis. It sounds as though the syncopal episode she experienced occurred during an extremely emotional time when she had just learned of her granddaughters . She also mentioned that her father had a permanent pacemaker, but does not know the reason for this. Allergies/Medications Allergies: Coded Allergies: aspirin (HIVES 05/26/17) Home Med List: Albuterol Sulfate (Ventolin Hfa) 90 MCG HFA.AER.AD 2 PUF INH Q4-6 PRN PRN SHORTNESS OF BREATH Atorvastatin Calcium 10 MG TABLET 1 TAB PO DAILY CHOLESTEROL (Reported) Duloxetine Hydrochloride (Cymbalta) 20 MG CAPSULE.DR 1 CAP PO DAILY MENTAL HEALTH (Reported) Escitalopram Oxalate 10 MG TABLET 1 TAB PO DAILY MENTAL HEALTH (Reported) Gabapentin 300 MG CAPSULE 1 CAP PO TID NERVE PAIN (Reported) Insulin Aspart (Novolog) 100 UNIT/ML VIAL DM (Reported) Lisinopril/Hydrochlorothiazide (Lisinopril-Hctz 20-12.5 MG Tab) 20 MG-12.5 MG TABLET 1 TAB PO DAILY BP (Reported) Melatonin 5 MG TABLET 1 TAB PO QPM SUPPLEMENT (Reported) Meloxicam 7.5 MG TABLET 1 TAB PO DAILY PAIN/INFLAMMATION (Reported) Mometasone Furoate (Nasonex) 50 MCG SPRAY.PUMP 1 SPRAY NASB TID ALLERGIES ( Reported) Pantoprazole Sodium 40 MG TABLET.DR 1 TAB PO DAILY ACID REFLUX (Reported) Sitagliptin Phosphate (Januvia) 100 MG TABLET 1 TAB PO DAILY DIABETES ( Reported) Current Medications: Current Medications Sig/Jan Start time Last Medication Dose Route Stop Time Status Admin Acetaminophen 650 MG Q8P PRN 08/12 2245 AC 08/13 PO 0615 Albuterol Sulfate 3 ML EVERY 4 HRS/AWAKE 08/13 1200 AC 08/13 INH 1136 Albuterol Sulfate 3 ML Q4H PRN 08/12 2200 DC 08/13 INH 0824 Albuterol Sulfate 3 ML ONCE ONE 08/12 1830 DC 08/12 INH 08/12 1831 1832 Albuterol Sulfate 3 ML ONCE ONE 08/12 1630 DC 08/12 INH 08/12 1631 1620 Albuterol Sulfate 3 ML ONCE ONE 08/12 1615 DC 08/12 INH 08/12 1616 1614 Aspirin 325 MG ONCE ONE 08/12 2245 CAN PO 08/12 2246 Atorvastatin Calcium 10 MG DAILY 08/13 1000 AC 08/13 PO 0910 Budesonide/ 2 PUF BID 08/13 1306 AC Formoterol Fumarate INH Duloxetine HCl 20 MG DAILY 08/13 1000 AC 08/13 PO 0910 Fluticasone 2 SPRAY DAILY 08/13 1000 AC 08/13 Propionate S[place] 0910 Gabapentin 300 MG TID 08/13 1000 AC 08/13 PO 0910 Guaifenesin 600 MG Q12 08/13 1000 AC 08/13 PO 0910 Heparin Sodium 5,000 UNIT Q8 08/12 2200 AC 08/13 (Porcine) SC 0614 Hydrochlorothiazide 12.5 MG DAILY 08/13 1000 AC 08/13 PO 0910 Influenza Virus 0.5 ML ONCE ONE 08/12 2300 DC Vaccine IM 08/12 2301 Insulin Aspart 0 TIDAC 08/12 2230 AC 08/13 SC 1251 Ipratropium [place] 2.5 ML Q4 HRS NEEDED PRN 08/13 0500 DC INH Ipratropium [place] 2.5 ML ONCE ONE 08/12 2200 DC INH 08/12 2201 Ipratropium [place] 2.5 ML ONCE ONE 08/12 1830 DC 08/12 INH / 1831 1831 Ipratropium [place] 2.5 ML ONCE ONE 08/12 1615 DC 08 INH 08 1616 1614 Lisinopril 20 MG DAILY 08/13 1000 DC 03/09 PO 0909 Losartan Potassium 50 MG DAILY 08/14 1000 AC PO Melatonin 5 MG QPM 08/13 2200 AC PO Methylprednisolone 40 MG Q8 08/13 0600 AC 08/13 IV 08/13 1600 0610 Methylprednisolone 0 .STK-MED ONE 08/12 1712 DC .ROUTE Methylprednisolone 125 MG ONCE ONE 08/12 1630 DC 08/12 IV 08/12 1631 1715 Omeprazole 40 MG 1/2H B/BREAKF/DINNER 08/13 1630 AC PO Omeprazole 40 MG DAILY AC 08/13 0700 DC 08/13 PO 0610 Prednisone 50 MG DAILY 08/14 1000 AC PO Sodium Chloride 2 SPRAY Q4P PRN 08/12 2245 AC SALEEM Tramadol HCl 50 MG Q8P PRN 08/12 2245 DC 08/13 PO 1057 Review of Systems Review of Systems: A 14 point system review was obtained and was noncontributory, other than as above. Past History Travel History Traveled to [place] past 21 day No Medical History Cardiovascular: hypertension, hyperlipidemia, syncope, bradycardia Respiratory: asthma Endocrine: diabetes Surgical History Surgical History: cholecystectomy, cataract removal, (Left carpal tunnel release), tubal ligation, KNEE REPLACEMENT GASTRIC BYPASS, left carpal tunnel release. Family History Family History Reviewed? father had a permanent pacemaker. Psychosocial History Primary Language: Uzbek Smoking Status: Never Smoked ETOH Use: denies use Illicit Drug Use: denies illicit drug use Exam & Diagnostic Data Vital Signs and I&O Vital Signs Date Time Temp Pulse Resp B/P B/P Pulse O2 O2 Flow FiO2 Mean Ox Delivery Rate 08/13 1025 Nasal 1.0L Cannula 08/13 908 58 120/60 08/13 0830 93 Nasal 1.0L Cannula 08/13 08 96 Nasal 1.0L Cannula 08/13 0617 98.0 48 18 118/62 93 08/13 0000 Nasal 1.0L Cannula 08/12 2304 98.3 60 28 132/78 91 Nasal Cannula 08/12 2229 Nasal 1.0L Cannula 08/12 2108 98.3 80 24 148/65 93 Nasal 2.0L Cannula 08/12 1832 96 Nasal 1.0L Cannula 08/12 1809 97.7 60 24 154/76 99 Nasal 2.0L Cannula 08/12 1630 100 Nasal 2.0L Cannula 08/12 1614 100 Nasal 2.0L Cannula 08/12 1603 97.8 54 20 158/78 94 Room Air Intake & Output 08/13 0000 08/12 1600 08/12 0800 08/12 0000 Intake Total 10 120 Output Total 500 Balance -490 120 Intake, IV 10 Intake, Oral 120 Output, Urine 500 Patient 215 lb Weight Weight Standing Scale Measurement Method Physical Exam: Well-developed, obese female in no acute distress with nasal oxygen in place. Vital signs: See above. HEENT: Normocephalic, atraumatic, EOMI, moist mucous membranes. Neck: No JVD, no bruits. Lungs: Bilateral expiratory wheezing throughout both lung wells. Heart: S1, S2 with a soft (grade 1/6) systolic murmur. No gallop or rub. PMI fifth ICS at [facility]. Abdomen: Soft, nontender, positive bowel sounds. Extremities: No edema. Labs/Mariusz Results: Laboratory Tests 08/13 08/13 0630 0235 Chemistry Sodium (137 - 145 mmol/L) 135 L Potassium (3.5 - 5.1 mmol/L) 5.3 H Chloride (98 - 107 mmol/L) 101 Carbon Dioxide (22 - 30 mmol/L) 27 Anion Gap (5 - 16) 7 BUN (7 - 17 mg/dL) 16 Creatinine (0.5 - 1.0 mg/dL) 0.7 Estimated GFR (>60 ml/min) > 60 BUN/Creatinine Ratio (7 - 25 %) 22.9 Troponin I (< 0.11 ng/ml) < 0.01 Cancelled Hematology CBC w Diff NO MAN DIFF REQ WBC (4.8 - 10.8 /CUMM) 3.3 L RBC (4.20 - 5.40 /CUMM) 3.88 L Hgb (12.0 - 16.0 G/DL) 11.2 L Hct (37 - 47 %) 34.3 L MCV (81.0 - 99.0 FL) 88.3 MCH (27.0 - 31.0 PG) 28.9 MCHC (33.0 - 37.0 G/DL) 32.8 L RDW (11.5 - 14.5 %) 14.6 H Plt Count (130 - 400 /CUMM) 184 MPV (7.4 - 10.4 FL) 10.0 Gran % (42.2 - 75.2 %) 62.2 Lymphocytes % (20.5 - 51.1 %) 33.5 Monocytes % (1.7 - 9.3 %) 3.9 Eosinophils % (0 - 5 %) 0.2 Basophils % (0.0 - 2.0 %) 0.2 Absolute Granulocytes (1.4 - 6.5 /CUMM) 2.1 Absolute Lymphocytes (1.2 - 3.4 /CUMM) 1.1 L Absolute Monocytes (0.10 - 0.60 /CUMM) 0.1 Absolute Eosinophils (0.0 - 0.7 /CUMM) 0 Absolute Basophils (0.0 - 0.2 /CUMM) 0 08/13 08/12 08/12 0000 2250 1917 Chemistry Lactic Acid Cancelled Coagulation D-Dimer High Sensitivty (0 - 243 ng/ml) 458 H Urines Urine Color (YEL,AMB,STR) YEL Urine Clarity (CLEAR) CLEAR Urine pH (5.0 - 8.0) 6.0 Ur Specific [place] (1.001 - 1.035) 1.020 Urine Protein (NEG,<30 MG/DL) NEG Urine Ketones (NEG) NEG Urine Nitrite (NEG) NEG Urine Bilirubin (NEG) NEG Urine Urobilinogen (0.1 - 1.0 EU/dl) 2.0 H Ur Leukocyte Esterase (NEG) NEG Ur Microscopic EXAM NOT REQUIRED Urine Hemoglobin (NEG) NEG Urine Glucose (N MG/DL) 100 H 08/12 1645 Chemistry Sodium (137 - 145 mmol/L) 140 Potassium (3.5 - 5.1 mmol/L) 4.4 Chloride (98 - 107 mmol/L) 106 Carbon Dioxide (22 - 30 mmol/L) 25 Anion Gap (5 - 16) 9 BUN (7 - 17 mg/dL) 17 Creatinine (0.5 - 1.0 mg/dL) 0.8 Estimated GFR (>60 ml/min) > 60 BUN/Creatinine Ratio (7 - 25 %) 21.3 Glucose (65 - 99 mg/dL) 97 Lactic Acid (0.7 - 2.1 mmol/L) 0.8 Calcium (8.4 - 10.2 mg/dL) 9.0 Total Bilirubin (0.2 - 1.3 mg/dL) 0.2 AST (14 - 36 U/L) 28 ALT (9 - 52 U/L) 30 Alkaline Phosphatase (<127 U/L) 92 Troponin I (< 0.11 ng/ml) < 0.01 Kzd-L-[id number] Pept (<125 pg/mL) 247 H Total Protein (6.3 - 8.2 g/dL) 6.0 L Albumin (3.5 - 5.0 g/dL) 3.3 L Globulin (1.9 - 4.2 gm/dL) 2.7 Albumin/Globulin Ratio (1.1 - 2.2 %) 1.2 Hematology CBC w Diff NO MAN DIFF REQ WBC (4.8 - 10.8 /CUMM) 5.6 RBC (4.20 - 5.40 /CUMM) 3.99 L Hgb (12.0 - 16.0 G/DL) 11.3 L Hct (37 - 47 %) 35.4 L MCV (81.0 - 99.0 FL) 88.7 MCH (27.0 - 31.0 PG) 28.2 MCHC (33.0 - 37.0 G/DL) 31.8 L RDW (11.5 - 14.5 %) 15.0 H Plt Count (130 - 400 /CUMM) 184 MPV (7.4 - 10.4 FL) 9.1 Gran % (42.2 - 75.2 %) 36.3 L Lymphocytes % (20.5 - 51.1 %) 46.2 Monocytes % (1.7 - 9.3 %) 11.3 H Eosinophils % (0 - 5 %) 5.3 H Basophils % (0.0 - 2.0 %) 0.9 Absolute Granulocytes (1.4 - 6.5 /CUMM) 2.0 Absolute Lymphocytes (1.2 - 3.4 /CUMM) 2.6 Absolute Monocytes (0.10 - 0.60 /CUMM) 0.6 Absolute Eosinophils (0.0 - 0.7 /CUMM) 0.3 Absolute Basophils (0.0 - 0.2 /CUMM) 0.1 Diagnostic Data EKG Results 08/13/2017: Sinus bradycardia at 48 bpm and otherwise unremarkable. CXR Results 08/12/2017: No acute cardiopulmonary process. Assessment/Plan Assessment/Plan [id number] w/ hx HTN, HLD, DM, previous syncope, bradycardia of uncertain etiology, and asthma with previous exacerbations who presented to the ED on 08/12/2017 w/ c/o SOB, wheezing, intermittent chills, and a nonproductive cough for the prior 24 hours and who we are asked to evaluate for sinus bradycardia. Sinus bradycardia is usually defined as heart rates below 55-60 bpm and can be seen in normal children and adults, particularly during sleep, and in some elderly individuals. It can also occur in numerous pathophysiologic conditions and most commonly occurs as a result of side effects or toxicities from medications or primary sinoatrial disease. In reviewing Mrs. Thomason's medications, only the Lexapro (escitalopram) in less than 1% of individuals on this medication and Neurontin (gabapentin) described in post marketing analysis and case reports have been implicated in rarely causing bradycardia. Other intrinsic causes of bradycardia can include idiopathic degenerative disorders, ischemic heart disease, hypertensive heart disease, cardiomyopathy inflammation, collagen vascular disease, pericardial inflammation, myocardial inflammation, Lyme disease, neuromuscular disorders, familial disorders, etc. Extrinsic causes bradycardia, other than medications, include autonomically causes (vasovagal syncope, carotid sinus hyperintensity), hypothyroidism, hypoxia, hyperkalemia, increased intracranial pressure, etc. Recommendations: * Continue on telemetry. * Echocardiogram to assess structural integrity of heart. * Recheck potassium and treat hyperkalemia if it persists. * Check Lyme titer, magnesium, free T4, TSH, etc. * Assess for O2 desaturation during sleep. * Consider formal outpatient sleep study, pharmacologic (dobutamine) stress testing, 24-hour Holter monitoring. * Consider using agents other than Lexapro and Neurontin. * Continue DVT prophylaxis. Further recommendations will follow, Thank you. Consult Acknowledgment - Thank you for your consult request.
[2017-08-13 14:00] VITALS: BP 148/70
[2017-08-13 22:31] VITALS: BP 132/90
[2017-08-14 07:24] VITALS: BP 128/85
--- NOTE | 2017-08-14 08:38 | PN- Housestaff ---
Sukumar Franco 08/14/17 0837: Subjective Follow-up For: asthma exacerbation Subjective: Patient reports no complaints or acute events overnight Review of Systems Constitutional: Reports: see HPI. Objective Last 24 Hrs of Vital Signs/I&O Vital Signs Date Time Temp Pulse Resp B/P B/P Pulse O2 O2 Flow FiO2 Mean Ox Delivery Rate 08/14 1349 98.4 55 20 150/70 94 Room Air 08/14 0955 70 134/70 08/14 0802 99 Nasal 1.0L Cannula 08/14 08 95 Room Air 08/14 0724 98.3 58 16 128/85 97 Nasal 1.0L Cannula 08/13 2231 97.9 54 16 132/90 94 Intake & Output 08/14 1600 08/14 0800 08/14 0000 Intake Total 600 110 160 Output Total 300 Balance 600 110 -140 Intake, IV 10 Intake, Oral 600 100 160 Output, Urine 300 Patient 205 lb Weight Physical Exam General Appearance: Alert, Oriented X3, Cooperative, No Acute Distress Cardiovascular: Regular Rate, Normal S1, Normal S2, No Murmurs, Gallops, Rubs Lungs: Clear to Auscultation, Normal Air Movement Abdomen: Normal Bowel Sounds, Soft, No Tenderness, No Hepatospenomegaly, No Masses Extremities: No Edema Current Medications: Current Medications Sig/Jan Start time Last Medication Dose Route Stop Time Status Admin Acetaminophen 650 MG Q8P PRN 08/12 2245 AC 08/14 PO 0957 Acetaminophen/ 1 TAB Q4P PRN 08/14 1130 AC 08/14 Butalbital/Caffeine PO 1144 Albuterol Sulfate 3 ML Q4P PRN 08/14 1500 AC INH Albuterol Sulfate 3 ML EVERY 4 HRS/AWAKE 08/13 1200 DC 08/14 INH 1150 Atorvastatin Calcium 10 MG DAILY 08/13 1000 AC 08/14 PO 0954 Budesonide/ 2 PUF BID 08/13 1306 AC 08/14 Formoterol Fumarate INH 0957 Duloxetine HCl 20 MG DAILY 08/13 1000 AC 08/14 PO 0954 Fluticasone 2 SPRAY DAILY 08/13 1000 AC 08/14 Propionate [place] 0955 Gabapentin 300 MG TID 08/13 1000 AC 08/14 PO 1643 Guaifenesin 10 ML Q4P PRN 08/14 0400 AC 08/14 PO 0358 Guaifenesin 600 MG Q12 08/13 1000 AC 08/14 PO 0954 Heparin Sodium 5,000 UNIT Q8 08/12 2200 AC 08/14 (Porcine) SC 1514 Hydrochlorothiazide 12.5 MG DAILY 08/13 1000 AC 08/14 PO 0954 Insulin Aspart 0 TIDAC 08/12 2230 AC 08/14 SC 1736 Losartan Potassium 50 MG DAILY 08/14 1000 AC 08/14 PO 0955 Melatonin 5 MG QPM 08/13 2200 AC 08/13 PO 2051 Omeprazole 40 MG 1/2H B/BREAKF/DINNER 08/13 1630 AC 08/14 PO 1642 Prednisone 50 MG DAILY 08/14 1000 AC 08/14 PO 0957 Sodium Chloride 2 SPRAY Q4P PRN 08/12 2245 AC SALEEM Last 24 Hrs of Lab/Mariusz Results Last 24 Hrs of Labs/Mics: Laboratory Tests 08/14/17 1615: Anion Gap 9, Estimated GFR 55 L, BUN/Creatinine Ratio 30.0 H, CBC w Diff NO MAN DIFF REQ, RBC 4.00 L, MCV 88.7, MCH 28.1, MCHC 31.7 L, RDW 14.6 H, MPV 10.3, Gran % 90.2 H, Lymphocytes % 8.1 L, Monocytes % 1.7, Eosinophils % 0, Basophils % 0, Absolute Granulocytes 8.8 H, Absolute Lymphocytes 0.8 L, Absolute Monocytes 0.2, Absolute Eosinophils 0, Absolute Basophils 0 Assessment/Plan Assessment: Ms. Thomason is a 71 year old female with past medical history significant for asthma, diabetes, HTN, HLD, and bradycardia presented with complaints of wheezing and dyspnea. Asthma exacerbation * eosinophils elevated on cbc, h/o atopy and aspirin allergy * Pulmology consultation, appreciate recommendations * Continue prednisone taper * May benefit from nocturnal sleep study Bradycardia: * Cardiology consulted, appreciate recommendations * May benefit from outpatient nuclear stress test * ECHO pending to r/o SHD and/or RWMA * TSH * [place] titer DM: * Accuchecks TIDAC/HS * Novolog sliding scale HTN: * Continue HCTZ * Lisinopril discontinued * Continue losartan HLD: * Continue statin therapy Morbid obesity Class III-history of gastric bypass PO PPI BID Diabetic diet DVT ppx DNR/DNI Problem List: 1. Asthma exacerbation Pain Ratin Pain Location: NA Pain Goal: Remain pain free Pain Plan: NA Tomorrow's Labs & Rationales: BEP for hyponatremia Navneet Garcia 08/14/17 1356: Attending MD Review Statement Attending Statement Attending MD Statement: examined this patient, discuss w/resident/PA/LEATHER GRAINER, agreed w/resident/PA/LEATHER GRAINER, reviewed EMR data (avail), discussed with nursing Attending Assessment/Plan: [place] exacerbation- pt weaned off oxygen. Pulmonary recommending nocturnal sleep study. Will f/u on echo results CBC/ BEP pending for today. will f/u on those. Sleep study as an outpatient. Pt complains of heartburn . has been started on PPI bid. Encouraged pt not to eat spicy food. Lyme titer pending TSH normal.
--- NOTE | 2017-08-14 11:30 | PN- Pulmonary ---
Subjective HPI/Critical Care Issues: Improved Has a mild head ache this am Objective Current Medications: Current Medications Sig/Jan Start time Last Medication Dose Route Stop Time Status Admin Acetaminophen 650 MG .STK-MED ONE 08/13 1647 DC PO 08/13 1648 Acetaminophen 650 MG Q8P PRN 08/12 2245 AC 08/14 PO 0957 Acetaminophen/ 1 TAB Q4P PRN 08/14 1130 AC Butalbital/Caffeine PO Albuterol Sulfate 3 ML EVERY 4 HRS/AWAKE 08/13 1200 AC 08/14 INH 0759 Atorvastatin Calcium 10 MG DAILY 08/13 1000 AC 08/14 PO 0954 Budesonide/ 2 PUF BID 08/13 1306 AC 08/14 Formoterol Fumarate INH 0957 Duloxetine HCl 20 MG DAILY 08/13 1000 AC 08/14 PO 0954 Fluticasone 2 SPRAY DAILY 08/13 1000 AC 08/14 Propionate [place] 0955 Gabapentin 300 MG TID 08/13 1000 AC 08/14 PO 0956 Guaifenesin 10 ML Q4P PRN 08/14 0400 AC 08/14 PO 0358 Guaifenesin 600 MG Q12 08/13 1000 AC 08/14 PO 0954 Heparin Sodium 5,000 UNIT Q8 08/12 2200 AC 08/14 (Porcine) SC 0603 Hydrochlorothiazide 12.5 MG DAILY 08/13 1000 AC 08/14 PO 0954 Insulin Aspart 0 TIDAC 08/12 2230 AC 08/13 SC 1642 Lisinopril 20 MG DAILY 08/13 1000 DC 08/13 PO 0909 Losartan Potassium 50 MG DAILY 08/14 1000 AC 08/14 PO 0955 Melatonin 5 MG QPM 08/13 2200 AC 08/13 PO 2051 Methylprednisolone 40 MG Q8 08/13 0600 DC 08/13 IV 08/13 1600 1407 Omeprazole 40 MG 1/2H B/BREAKF/DINNER 08/13 1630 AC 08/14 PO 0604 Omeprazole 40 MG DAILY AC 08/13 0700 DC 08/13 PO 0610 Prednisone 50 MG DAILY 08/14 1000 AC 08/14 PO 0957 Sodium Chloride 2 SPRAY Q4P PRN 08/12 2245 AC SALEEM Tramadol HCl 50 MG Q8P PRN 08/12 2245 DC 08/13 PO 1057 Vital Signs & I&O Last 24 Hrs of Vitals and I&O: Vital Signs Date Time Temp Pulse Resp B/P B/P Pulse O2 O2 Flow FiO2 Mean Ox Delivery Rate 08/14 0955 70 134/70 08/14 0802 99 Nasal 1.0L Cannula 08/14 0724 98.3 58 16 128/85 97 Nasal 1.0L Cannula 08/13 2231 97.9 54 16 132/90 94 08/13 1559 95 Nasal 1.0L Cannula 08/13 1400 98.0 56 20 148/70 4 Nasal 1.0L Cannula Intake & Output 08/14 1600 08/14 0800 08/14 0000 Intake Total 110 160 Output Total 300 Balance 110 -140 Intake, IV 10 Intake, Oral 100 160 Output, Urine 300 Patient 205 lb Weight Impression/Plan Impression/Plan Impression/Plan: General Appearance Alert, Oriented X3, Cooperative, [place] speaking only HEENT frontal and maxillary sinus tenderness, normal ear exam Cardiovascular 2+ radial and pedal pulses, chest tender to palpation, systolic murmur Lungs Clear to Auscultation, mild wheezing and most of the wheezing is from her vocal cord as she may have vc dysfunction, improved since yesterday Normal Air Movement Abdomen decrease abd sounds, soft, nontender Neurological CN2-12 grossly intact Extremities no edema of LE CXR normal CT in dec No pulmonary embolus demonstrated. No consolidation. There are scattered areas of air trapping and a few small nonspecific lung cysts. There is some groundglass disease. Possibilities include alveolitis or small airways disease. IMPRESSION 71 year old female with past medical history significant for asthma, diabetes, HTN, HLD, Previous gastric bypass surg, recurrent gerd now with bradycardia - presented with complaints of wheezing and dyspnea. 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 as her wheezing appears mainly from the vocal cord area on excertion * GERD with gastric bypass with prob recurrent regurg due to dietary noncompliance causing most of her symptoms probably * Small airway disease and airtrapping noted in the ct prob due to above * Morbid obesity with previous gastric bypass with clinical evidence of UARS / sleep apnea * Kelvin on admission - needs eval * DM/HTN on ACI with vc dysfunction REC * PRednisone wean in 10 days * KEep hob up * PPI qd upondc * PRn nebs from now on * Add symbicort 160 bid and dc flovent * Losartan 50mg instead of lisinopril * COnt current meds WIll follow closely
[2017-08-14 13:49] VITALS: BP 150/70
--- NOTE | 2017-08-14 15:54 | PN- Cardiology ---
Subjective Subjective: * Patient had a headache earlier today. She feels a bit lightheaded if she arises quickly. * sinus rhythm with low normal heart rate. * No evidence of hypothyroidism and Lyme titer is pending. Objective Vital Signs and I&Os Vital Signs Date Time Temp Pulse Resp B/P B/P Pulse O2 O2 Flow FiO2 Mean Ox Delivery Rate 08/14 1349 98.4 55 20 150/70 94 Room Air 08/14 0955 70 134/70 08/14 0802 99 Nasal 1.0L Cannula 08/14 08 95 Room Air 08/14 0724 98.3 58 16 128/85 97 Nasal 1.0L Cannula 08/13 2231 97.9 54 16 132/90 94 08/13 1559 95 Nasal 1.0L Cannula Intake & Output 08/14 1600 08/14 0808/14 0000 08/13 1600 08/13 0800 08/13 0000 Intake Total 110 160 650 10 120 Output Total 300 700 500 Balance 110 -140 -50 -490 120 Intake, IV 10 10 Intake, Oral 100 160 650 120 Output, Urine 300 700 500 Patient 205 lb 215 lb 215 lb Weight Weight Standing Scale Measurement Method Physical Exam: General: WD/overweight female in NAD; alert and oriented x 3 Heart: RRR w/o murmur Lungs: clear bilaterally Extremities: no edema Assessment/Plan Assessment/Plan * This patient has had prior complaints of chest discomfort although none at this time. She should be risk stratified for ischemia with a dobutamine stress test prior to discharge. Obtain and echocardiogram. * The patient continues to have a heart rate that is in the low normal to slow range and is comfortable at rest but lightheaded upon arising. She likely has some sinus node disease. TFT's are not consistent with hypothyroidism and a Lyme titer is pending. Continue to monitor on telemetry. Continue telemetry? Yes
[2017-08-14 17:08] LABS: ABSOLUTE BASOPHIL COUNT 0 /CUMM (0.0-0.2); ABSOLUTE EOSINOPHIL COUNT 0 /CUMM (0.0-0.7); ABSOLUTE GRANULOCYTE CT 8.8 /CUMM (1.4-6.5); ABSOLUTE LYMPH COUNT 0.8 /CUMM (1.2-3.4); ABSOLUTE MONOCYTE COUNT 0.2 /CUMM (0.10-0.60); BASOPHIL % 0 % (0.0-2.0); EOSINOPHIL % 0 % (0-5); HEMATOCRIT 35.5 % (37-47); MEAN CORPUSCULAR HGB 28.1 PG (27.0-31.0); MEAN CORPUSCULAR HGB CONC 31.7 G/DL (33.0-37.0); MEAN CORPUSCULAR VOLUME 88.7 FL (81.0-99.0); MEAN PLATELET VOLUME 10.3 FL (7.4-10.4); PLATELET COUNT 197 /CUMM (130-400); RBC DISTRIBUTION WIDTH 14.6 % (11.5-14.5)
[2017-08-14 17:18] LABS: GRANULOCYTE % 90.2 % (42.2-75.2); WHITE BLOOD CELL COUNT 9.7 /CUMM (4.8-10.8)
[2017-08-14 22:33] VITALS: BP 148/78
[2017-08-15 07:25] VITALS: BP 144/82
--- NOTE | 2017-08-15 14:10 | PN- Cardiology ---
Subjective Subjective: * Patient had a persistent headache. She feels a bit lightheaded if she arises quickly. * sinus rhythm with low normal heart rate. * No evidence of hypothyroidism and Lyme titer is pending. Objective Vital Signs and I&Os Vital Signs Date Time Temp Pulse Resp B/P B/P Pulse O2 O2 Flow FiO2 Mean Ox Delivery Rate 08/15 1139 94 Room Air 08/15 1106 50 138/70 08/15 0725 97.7 54 20 144/82 96 Room Air 08/15 0000 97 Room Air 08/14 2233 97.3 52 20 148/78 95 Room Air 08/14 2206 4.0 08/14 1859 95 Room Air 08/14 1600 Room Air Intake & Output 08/15 1600 08/15 0800 08/15 0000 08/14 1600 08/14 0800 08/14 0000 Intake Total 200 400 600 110 160 Output Total 300 Balance 200 400 600 110 -140 Intake, IV 10 Intake, Oral 200 400 600 100 160 Output, Urine 300 Patient 206 lb 205 lb Weight Weight Bed scale Measurement Method Physical Exam: General: WD/overweight female in NAD; alert and oriented x 3 Heart: RRR w/o murmur Lungs: clear bilaterally Extremities: no edema Assessment/Plan Assessment/Plan * This patient has had prior complaints of chest discomfort although none at this time. She should be risk stratified for ischemia with a dobutamine stress test prior to discharge. Obtain and echocardiogram. * The patient continues to have a heart rate that is in the low normal to slow range and is comfortable at rest but lightheaded upon arising. She likely has some sinus node disease. TFT's are not consistent with hypothyroidism and a Lyme titer is pending. Continue to monitor on telemetry. Continue telemetry? Yes
--- NOTE | 2017-08-15 14:37 | PN- Att Addend ---
Attending MD Review Statement Attending Statement Attending MD Statement: examined this patient, discuss w/resident/PA/PHOTOGRAPHY COLORIST, agreed w/resident/PA/PHOTOGRAPHY COLORIST, reviewed EMR data (avail), discussed w/nursing Attending Assessment/Plan: Laboratory Tests 08/15/17 0637: Anion Gap 5, Estimated GFR > 60, BUN/Creatinine Ratio 33.3 H 08/14/17 1615: Anion Gap 9, Estimated GFR 55 L, BUN/Creatinine Ratio 30.0 H, CBC w Diff NO MAN DIFF REQ, RBC 4.00 L, MCV 88.7, MCH 28.1, MCHC 31.7 L, RDW 14.6 H, MPV 10.3, Gran % 90.2 H, Lymphocytes % 8.1 L, Monocytes % 1.7, Eosinophils % 0, Basophils % 0, Absolute Granulocytes 8.8 H, Absolute Lymphocytes 0.8 L, Absolute Monocytes 0.2, Absolute Eosinophils 0, Absolute Basophils 0 Vital Signs Date Time Temp Pulse Resp B/P B/P Pulse O2 O2 Flow FiO2 Mean Ox Delivery Rate 08/15 1139 94 Room Air 08/15 1106 50 138/70 08/15 0725 97.7 54 20 144/82 96 Room Air 08/15 0000 97 Room Air 08/14 2233 97.3 52 20 148/78 95 Room Air 08/14 2206 4.0 08/14 1859 95 Room Air 08/14 1600 Room Air Will f/u on echo results. Plan for stress test tomorrow. Will do overnight pulse oxymetry tonight and will f/u on the results. Pt currently off oxygen and doing ok. Will plan dc based on stress test results and echo results.
[2017-08-15 14:59] VITALS: BP 120/50
--- NOTE | 2017-08-15 15:11 | PN- Pulmonary ---
Subjective HPI/Critical Care Issues: Sleeping and did say she has head ache since yesterday Objective Current Medications: Current Medications Sig/Jan Start time Last Medication Dose Route Stop Time Status Admin Acetaminophen 650 MG .STK-MED ONE 08/14 2106 DC PO 08/15 2107 Acetaminophen 650 MG Q8P PRN 08/12 2245 AC 08/14 PO 2206 Acetaminophen/ 1 TAB Q4P PRN 08/14 1130 AC 08/15 Butalbital/Caffeine PO 1350 Albuterol Sulfate 3 ML Q4P PRN 08/14 1500 AC INH Atorvastatin Calcium 10 MG DAILY 08/13 1000 AC 08/15 PO 1106 Budesonide/ 2 PUF BID 08/13 1306 AC 08/15 Formoterol Fumarate INH 1105 Duloxetine HCl 20 MG DAILY 08/13 1000 AC 08/15 PO 1106 Fluticasone 2 SPRAY DAILY 08/13 1000 AC 08/15 Propionate SALEEM 1105 Gabapentin 300 MG TID 08/13 1000 AC 08/15 PO 1106 Guaifenesin 10 ML Q4P PRN 08/14 0400 AC 08/14 PO 2206 Guaifenesin 600 MG Q12 08/13 1000 AC 08/15 PO 1106 Heparin Sodium 5,000 UNIT Q8 08/12 2200 AC 08/15 (Porcine) SC 1350 Hydrochlorothiazide 12.5 MG DAILY 08/13 1000 AC 08/15 PO 1106 Insulin Aspart 0 TIDAC 08/12 2230 AC 08/14 SC 1736 Losartan Potassium 50 MG DAILY 08/14 1000 AC 08/15 PO 1106 Melatonin 5 MG QPM 08/13 2200 AC 08/14 PO 2206 Omeprazole 40 MG 1/2H B/BREAKF/DINNER 08/13 1630 AC 08/15 PO 0744 Prednisone 50 MG DAILY 08/14 1000 AC 08/15 PO 1106 Sodium Chloride 2 SPRAY Q4P PRN 08/12 2245 AC SALEEM Vital Signs & I&O Last 24 Hrs of Vitals and I&O: Vital Signs Date Time Temp Pulse Resp B/P B/P Pulse O2 O2 Flow FiO2 Mean Ox Delivery Rate 08/15 1459 97.5 45 20 120/50 94 Room Air 08/15 1139 94 Room Air 08/15 1106 50 138/70 08/15 0725 97.7 54 20 144/82 96 Room Air 08/15 0000 97 Room Air 03/10 2233 97.3 52 20 148/78 95 Room Air 08/14 2206 4.0 08/14 1859 95 Room Air 08/14 1600 Room Air Intake & Output 08/15 1600 08/15 0800 08/15 0000 Intake Total 200 400 Output Total Balance 200 400 Intake, Oral 200 400 Patient 206 lb Weight Weight Bed scale Measurement Method Impression/Plan Impression/Plan Impression/Plan: General Appearance Cooperative, vietnamese speaking only HEENT frontal and maxillary sinus tenderness, normal ear exam Cardiovascular 2+ radial and pedal pulses, chest tender to palpation, systolic murmur Lungs Clear to Auscultation, mild wheezing and most of the wheezing is from her vocal cord as she may have vc dysfunction, improved since yesterday Normal Air Movement Abdomen decrease abd sounds, soft, nontender Neurological CN2-12 grossly intact Extremities no edema of LE CXR normal CT in dec No pulmonary embolus demonstrated. No consolidation. There are scattered areas of air trapping and a few small nonspecific lung cysts. There is some groundglass disease. Possibilities include alveolitis or small airways disease. IMPRESSION 71 year old female with past medical history significant for asthma, diabetes, HTN, HLD, Previous gastric bypass surg, recurrent gerd now with bradycardia - presented with complaints of wheezing and dyspnea. 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
[2017-08-15 16:00] VITALS: BP 124/54
--- NOTE | 2017-08-15 16:32 | PN- Housestaff ---
Subjective Follow-up For: asthma exacerbation chest pain Tele-Events Since Last Visit: Sinus randall ranging between 40-49 no Acute overnight events Subjective: Patient seen and examined. She is alert awake and oriented. No acute events. patient continues to report headache, denies any weakness, sensory changes. Denies any chest pain, short of breath. Review of Systems Constitutional: Denies: see HPI. Objective Last 24 Hrs of Vital Signs/I&O Vital Signs Date Time Temp Pulse Resp B/P B/P Pulse O2 O2 Flow FiO2 Mean Ox Delivery Rate 08/15 1459 97.5 45 20 120/50 94 Room Air 08/15 1139 94 Room Air 08/15 1106 50 138/70 08/15 0725 97.7 54 20 144/82 96 Room Air 08/15 0000 97 Room Air 08/14 2233 97.3 52 20 148/78 95 Room Air 08/14 2206 4.0 08/14 1859 95 Room Air Intake & Output 08/15 1600 08/15 0800 08/15 0000 Intake Total 200 400 Output Total Balance 200 400 Intake, Oral 200 400 Patient 93.242 kg Weight Weight Bed scale Measurement Method Physical Exam General Appearance: Alert, Oriented X3, Cooperative, No Acute Distress Other Physical Findings: Cardiovascular: Regular Rate, Normal S1, Normal S2, No Murmurs, Gallops, Rubs Lungs: Clear to Auscultation, Normal Air Movement Abdomen: Normal Bowel Sounds, Soft, No Tenderness, No Hepatospenomegaly, No Masses Extremities: No Edema Current Medications: Current Medications Sig/Jan Start time Last Medication Dose Route Stop Time Status Admin Acetaminophen 650 MG .STK-MED ONE 08/14 2106 DC PO 08/15 2107 Acetaminophen 650 MG Q8P PRN 08/12 2245 AC 08/14 PO 2206 Acetaminophen/ 1 TAB Q4P PRN 08/14 1130 AC 08/15 Butalbital/Caffeine PO 1350 Albuterol Sulfate 3 ML Q4P PRN 08/14 1500 AC INH Atorvastatin Calcium 10 MG DAILY 08/13 1000 AC 08/15 PO 1106 Budesonide/ 2 PUF BID 08/13 1306 AC 08/15 Formoterol Fumarate INH 1105 Duloxetine HCl 20 MG DAILY 08/13 1000 AC 08/15 PO 1106 Fluticasone 2 SPRAY DAILY 08/13 1000 AC 08/15 Propionate SALEEM 1105 Gabapentin 300 MG TID 08/13 1000 AC 08/15 PO 1106 Guaifenesin 10 ML Q4P PRN 08/14 0400 AC 08/14 PO 2206 Guaifenesin 600 MG Q12 08/13 1000 AC 08/15 PO 1106 Heparin Sodium 5,000 UNIT Q8 08/12 2200 AC 08/15 (Porcine) SC 1350 Hydrochlorothiazide 12.5 MG DAILY 08/13 1000 AC 08/15 PO 1106 Insulin Aspart 0 TIDAC 08/12 2230 AC 08/14 SC 1736 Losartan Potassium 50 MG DAILY 08/14 1000 AC 08/15 PO 1106 Melatonin 5 MG QPM 08/13 2200 AC 08/14 PO 2206 Omeprazole 40 MG 1/2H B/BREAKF/DINNER 08/13 1630 AC 08/15 PO 0744 Prednisone 50 MG DAILY 08/14 1000 AC 08/15 PO 1106 Sodium Chloride 2 SPRAY Q4P PRN 08/12 2245 AC SALEEM Last 24 Hrs of Lab/Mariusz Results Last 24 Hrs of Labs/Mics: Laboratory Tests 08/15/17 0637: Anion Gap 5, Estimated GFR > 60, BUN/Creatinine Ratio 33.3 H Assessment/Plan Assessment: Ms. Thomason is a 71 year old female with past medical history significant for asthma, diabetes, HTN, HLD, and bradycardia presented with complaints of wheezing and dyspnea. Asthma exacerbation * eosinophils elevated on cbc, h/o atopy and aspirin allergy * Pulmology consultation, appreciate recommendations * Continue prednisone taper 50 mg day 2 today, taper in 10 days * May benefit from nocturnal sleep study * will do Nocturnal continuous pulse oximetry Bradycardia/chest pain: * Cardiology consulted, appreciate recommendations * May benefit from nuclear stress test * ECHO pending to r/o SHD and/or RWMA * [place] titer pending * Nothing by mouth tonight * Dobutamine stress test tomorrow * Follow-up echocardiogram DM: * Accuchecks TIDAC/HS * Novolog sliding scale HTN: * Continue HCTZ * Lisinopril discontinued * Continue losartan HLD: * Continue statin therapy Headache Patient is getting Tylenol, Fioricet for headache. However she reports persistent headache. Will get CAT scan head to rule out any intracranial pathology. Morbid obesity Class III-history of gastric bypass PO PPI BID Diabetic diet DVT ppx DNR/DNI Problem List: 1. Dyspnea 2. Chest pain 3. Asthma exacerbation Pain Ratin Pain Location: head ache Pain Goal: Remain pain free Pain Plan: bob santana Tomorrow's Labs & Rationales: rohith bep
--- NOTE | 2017-08-15 16:46 | Event Note ---
Event Note Event Note: Patient's blood sugars greater than 500, family was here to visit and gave her a donut to eat. Will give 10 units of NovoLog insulin and repeat blood sugars in an hour.
--- NOTE | 2017-08-15 18:24 | CT SCAN REPORT ---
EXAMINATION: CT HEAD WITHOUT CONTRAST CLINICAL INFORMATION: Persistent headache. Rule out intracranial pathology. COMPARISON: None TECHNIQUE: Contiguous axial imaging was performed from the skull base to vertex without intravenous administration of contrast. DLP: 612.78 mGy-cm FINDINGS: Evaluation in the posterior fossa and middle fossa is limited due to beam hardening artifact. There is no evidence of acute intracranial hemorrhage or territorial infarction. No abnormal mass effect or midline shift is seen. Alvarez to white matter differentiation is well preserved. No extra-axial fluid collections are identified. The ventricles are normal in size. There is no abnormal attenuation within the brain parenchyma. The osseous structures and soft tissues are normal. Small amount of mucosal thickening is seen posteriorly within the left sphenoid sinus. The mastoid air cells and visualized portions of the paranasal sinuses are otherwise well aerated. IMPRESSION: 1. No acute intracranial pathology. 2. Mild left sphenoid sinus disease.
[2017-08-15 22:51] VITALS: BP 126/60
[2017-08-16 07:03] VITALS: BP 140/58
--- NOTE | 2017-08-16 07:28 | PN- Housestaff ---
See Addendum Subjective Follow-up For: asthma exacerbation chest pain Tele-Events Since Last Visit: SB HR 36-46 Subjective: Language barrier. Family at bedside. Patient reports palpitations. Denies CP, SOB, nausea, vomiting. Patient family reports pt has knee surgery in September and need cardiac clearance by 08/26/17 if our communications systems engineer can clear her because she missed her appt today with Dr. Denise Mattson Review of Systems Constitutional: Reports: see HPI. Objective Last 24 Hrs of Vital Signs/I&O Vital Signs Date Time Temp Pulse Resp B/P B/P Pulse O2 O2 Flow FiO2 Mean Ox Delivery Rate 08/16 1110 92 Room Air Room Air 08/16 1036 42 140/58 08/16 0703 98.6 36 20 140/58 95 Room Air 08/15 2303 Room Air 08/15 2251 98.0 49 20 126/60 99 Room Air 08/15 2030 96 Room Air 08/15 1600 97.9 50 18 124/54 94 Room Air 08/15 1459 97.5 45 20 120/50 94 Room Air Intake & Output 08/16 1600 08/16 0800 08/16 0000 Intake Total 250 240 Output Total Balance 250 240 Intake, IV 150 Intake, Oral 100 240 Patient 200 lb Weight Weight Bed scale Measurement Method Physical Exam General Appearance: Alert, Oriented X3, Cooperative, No Acute Distress Cardiovascular: Regular Rate, Normal S1, Normal S2 Lungs: Clear to Auscultation, Normal Air Movement Current Medications: Current Medications Sig/Jan Start time Last Medication Dose Route Stop Time Status Admin Acetaminophen 650 MG Q8P PRN 08/12 2245 AC 08/14 PO 2206 Acetaminophen/ 1 TAB Q4P PRN 08/14 1130 AC 08/15 Butalbital/Caffeine PO 1350 Albuterol Sulfate 3 ML Q4P PRN 08/14 1500 AC INH Atorvastatin Calcium 10 MG DAILY 08/13 1000 AC 08/16 PO 1036 Budesonide/ 2 PUF BID 08/13 1306 AC 08/16 Formoterol Fumarate INH 1037 Dextrose/Sodium 1,000 ML Q20H 08/15 2345 DC 08/16 Chloride IV 0116 Duloxetine HCl 20 MG DAILY 08/13 1000 AC 08/16 PO 1036 Fluticasone 2 SPRAY DAILY 08/13 1000 AC 08/16 Propionate SALEEM 1037 Gabapentin 300 MG TID 03/09 1000 AC 08/16 PO 1036 Guaifenesin 10 ML Q4P PRN 08/14 0400 AC 08/14 PO 2206 Guaifenesin 600 MG Q12 08/13 1000 AC 08/16 PO 1036 Heparin Sodium 5,000 UNIT Q8 08/12 2200 AC 08/16 (Porcine) SC 0704 Hydrochlorothiazide 12.5 MG DAILY 08/13 1000 AC 08/16 PO 1038 Insulin Aspart 0 TIDAC 08/16 1700 AC SC Insulin Aspart 10 UNITS ONCE ONE 08/15 1645 DC 08/15 SC 08/15 1646 1721 Insulin Aspart 0 TIDAC 08/12 2230 DC 08/14 SC 1736 Insulin Human Regular 8 UNITS .STK-MED ONE 08/16 0102 DC IV 08/16 0103 Insulin Human Regular 0 Q6 08/15 2359 DC 08/16 SC 0115 Losartan Potassium 50 MG DAILY 08/14 1000 AC 08/15 PO 1106 Melatonin 5 MG QPM 08/13 2200 AC 08/15 PO 2228 Omeprazole 40 MG 1/2H B/BREAKF/DINNER 08/13 1630 AC 08/16 PO 0704 Polyethylene Glycol 17 GM DAILY 08/15 1646 AC 08/16 PO 1037 Prednisone 50 MG DAILY 08/14 1000 AC 08/16 PO 1035 Senna 187 MG AT BEDTIME 08/15 2200 AC 08/15 PO 2228 Sodium Chloride 2 SPRAY Q4P PRN 08/12 2245 AC SALEEM Last 24 Hrs of Lab/Mariusz Results Last 24 Hrs of Labs/Mics: Laboratory Tests 08/16/17 0847: Anion Gap 6, Estimated GFR > 60, BUN/Creatinine Ratio 34.4 H, CBC w Diff NO MAN DIFF REQ, RBC 4.22, MCV 88.8, MCH 28.6, MCHC 32.2 L, RDW 14.7 H, MPV 10.1, Gran % 59.3, Lymphocytes % 32.1, Monocytes % 7.6, Eosinophils % 0.8, Basophils % 0.2, Absolute Granulocytes 5.0, Absolute Lymphocytes 2.7, Absolute Monocytes 0.6 , Absolute Eosinophils 0.1, Absolute Basophils 0 Assessment/Plan Assessment: Ms. Thomason is a 71 year old female with past medical history significant for asthma, diabetes, HTN, HLD, and bradycardia presented with complaints of wheezing and dyspnea. Chest pain * Serial trop/ECG negative for ACS * ECHO pending * Doubutamine stress test pending for a.m * Cardio recommendations appreciated * Patient family reports pt has knee surgery in September and need cardiac clearance by 08/26/17 if our communications systems engineer can clear her because she missed her appt today with Dr. Denise Mattson Asthma exacerbation * eosinophils elevated on cbc, h/o atopy and aspirin allergy * Pulmology consultation, appreciate recommendations * Continue prednisone taper * Nocturnal pulse oximetry Bradycardia: * Cardiology consulted, appreciate recommendations * May benefit from outpatient nuclear stress test * ECHO pending to r/o SHD and/or RWMA * TSH/T4 wnl * [place] titer negative DM: * Accuchecks TIDAC/HS * Novolog sliding scale HTN: * Continue HCTZ * Lisinopril discontinued * Continue losartan HLD: * Continue statin therapy Morbid obesity Class III-history of gastric bypass PO PPI BID Diabetic diet DVT ppx DNR/DNI Problem List: 1. Asthma exacerbation 2. Chest pain Pain Ratin Pain Location: NA Pain Goal: Remain pain free Pain Plan: NA Tomorrow's Labs & Rationales: None
[2017-08-16 09:33] LABS: ABSOLUTE BASOPHIL COUNT 0 /CUMM (0.0-0.2); ABSOLUTE EOSINOPHIL COUNT 0.1 /CUMM (0.0-0.7); ABSOLUTE LYMPH COUNT 2.7 /CUMM (1.2-3.4); ABSOLUTE MONOCYTE COUNT 0.6 /CUMM (0.10-0.60); BASOPHIL % 0.2 % (0.0-2.0); EOSINOPHIL % 0.8 % (0-5); GRANULOCYTE % 59.3 % (42.2-75.2); HEMATOCRIT 37.5 % (37-47); MEAN CORPUSCULAR HGB 28.6 PG (27.0-31.0); MEAN CORPUSCULAR HGB CONC 32.2 G/DL (33.0-37.0); MEAN CORPUSCULAR VOLUME 88.8 FL (81.0-99.0); MEAN PLATELET VOLUME 10.1 FL (7.4-10.4); PLATELET COUNT 227 /CUMM (130-400); RBC DISTRIBUTION WIDTH 14.7 % (11.5-14.5); RED BLOOD CELL CT 4.22 /CUMM (4.20-5.40); WHITE BLOOD CELL COUNT 8.4 /CUMM (4.8-10.8)
--- NOTE | 2017-08-16 10:21 | Patient Discharge Instructions ---
Discharge Instructions General Discharge Information You were seen/treated for: Chest pain Special Instructions: Please follow up with your PCP in 1 week. Please follow up with your hypnotherapist in 1 week. Please follow up with Dr. Mckinney for cardiac clearance. Please follow up with Dr. Lux for your pacemaker. Please follow up with your pulmnologist in 1 week. Please take your medications as perscribed. Acute Coronary Syndrome Inclusion Criteria At DC or during hospital stay patient has or had the following: ACS DIAGNOSIS No Discharge Core Measures Meds if any: Prescribed or Continued at Discharge Meds if any: NOT Prescribed or Continued at Discharge Congestive Heart Failure Inclusion Criteria At DC or during hospital stay patient has or had the following: CHF DIAGNOSIS No Discharge Core Measures Meds if any: Prescribed or Continued at Discharge Meds if any: NOT Prescribed or Continued at Discharge Cerebrovascular accident Inclusion Criteria At DC or during hospital stay patient has or had the following: CVA/TIA Diagnosis No Discharge Core Measures Meds if any: Prescribed or Continued at Discharge Meds if any: NOT Prescribed or Continued at Discharge Venous thromboembolism Inclusion Criteria VTE Diagnosis No VTE Type NONE VTE Confirmed by (Test) NONE Discharge Core Measures - Per Current guidelines, there needs to be overlap - treatment for the first 5 days of Warfarin therapy. - If discharged on Warfarin prior to 5 days of - overlap therapy, the patient will need to be - assessed for post discharge needs including - *Post discharge parental anticoagulation - *Warfarin and/or parental anticoagulation education - *Follow up date to check INR post discharge At least 5 days overlap therapy as Inpatient No Meds if any: Prescribed or Continued at Discharge Note: Overlap Therapy is Warfarin and Anticoagulant Meds if any: NOT Prescribed or Continued at Discharge
--- NOTE | 2017-08-16 13:27 | PN- Pulmonary ---
Subjective HPI/Critical Care Issues: Stable on room air head ct showed mild sinusitis Objective Current Medications: Current Medications Sig/Jan Start time Last Medication Dose Route Stop Time Status Admin Acetaminophen 650 MG Q8P PRN 08/12 2245 AC 08/14 PO 2206 Acetaminophen/ 1 TAB Q4P PRN 08/14 1130 AC 08/15 Butalbital/Caffeine PO 1350 Albuterol Sulfate 3 ML Q4P PRN 08/14 1500 AC INH Atorvastatin Calcium 10 MG DAILY 08/13 1000 AC 08/16 PO 1036 Budesonide/ 2 PUF BID 08/13 1306 AC 08/16 Formoterol Fumarate INH 1037 Dextrose/Sodium 1,000 ML Q20H 08/15 2345 AC 08/16 Chloride IV 0116 Duloxetine HCl 20 MG DAILY 08/13 1000 AC 08/16 PO 1036 Fluticasone 2 SPRAY DAILY 08/13 1000 AC 08/16 Propionate SALEEM 1037 Gabapentin 300 MG TID 08/13 1000 AC 08/16 PO 1036 Guaifenesin 10 ML Q4P PRN 08/14 0400 AC 08/14 PO 2206 Guaifenesin 600 MG Q12 08/13 1000 AC 08/16 PO 1036 Heparin Sodium 5,000 UNIT Q8 08/12 2200 AC 08/16 (Porcine) SC 0704 Hydrochlorothiazide 12.5 MG DAILY 08/13 1000 AC 08/16 PO 1038 Insulin Aspart 10 UNITS ONCE ONE 08/15 1645 DC 08/15 SC 08/15 1646 1721 Insulin Aspart 0 TIDAC 08/12 2230 DC 08/14 [place] 1736 Insulin Human Regular 8 UNITS .STK-MED ONE 08/16 0102 DC IV 08/16 0103 Insulin Human Regular 0 Q6 08/15 2359 AC 08/16 SC 0115 Losartan Potassium 50 MG DAILY 08/14 1000 AC 08/15 PO 1106 Melatonin 5 MG QPM 08/13 2200 AC 08/15 PO 2228 Omeprazole 40 MG 1/2H B/BREAKF/DINNER 08/13 1630 AC 08/16 PO 0704 Polyethylene Glycol 17 GM DAILY 08/15 1646 AC 08/16 PO 1037 Prednisone 50 MG DAILY 08/14 1000 AC 08/16 PO 1035 Senna 187 MG AT BEDTIME 08/15 2200 AC 08/15 PO 2228 Sodium Chloride 2 SPRAY Q4P PRN 08/12 2245 AC SALEEM Vital Signs & I&O Last 24 Hrs of Vitals and I&O: Vital Signs Date Time Temp Pulse Resp B/P B/P Pulse O2 O2 Flow FiO2 Mean Ox Delivery Rate 08/16 1110 92 Room Air Room Air 08/16 1036 42 140/58 08/16 0703 98.6 36 20 140/58 95 Room Air 08/15 2303 Room Air 08/15 2251 98.0 49 20 126/60 99 Room Air 08/15 2030 96 Room Air 08/15 1600 97.9 50 18 124/54 94 Room Air 08/15 1459 97.5 45 20 120/50 94 Room Air Intake & Output 08/16 1600 08/16 0800 08/16 0000 Intake Total 250 240 Output Total Balance 250 240 Intake, IV 150 Intake, Oral 100 240 Patient 200 lb Weight Weight Bed scale Measurement Method Impression/Plan Impression/Plan Impression/Plan: General Appearance Cooperative, haitian speaking only HEENT frontal and maxillary sinus tenderness, normal ear exam Cardiovascular 2+ radial and pedal pulses, chest tender to palpation, systolic murmur Lungs Clear to Auscultation, mild wheezing and most of the wheezing is from her vocal cord as she may have vc dysfunction, improved since yesterday Normal Air Movement Abdomen decrease abd sounds, soft, nontender Neurological CN2-12 grossly intact Extremities no edema of LE CXR normal CT in dec No pulmonary embolus demonstrated. No consolidation. There are scattered areas of air trapping and a few small nonspecific lung cysts. There is some groundglass disease. Possibilities include alveolitis or small airways disease. IMPRESSION 71 year old female with past medical history significant for asthma, diabetes, HTN, HLD, Previous gastric bypass surg, recurrent gerd now with bradycardia - presented with complaints of wheezing and dyspnea. 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
[2017-08-16 15:13] VITALS: BP 138/60
[2017-08-16] MEDS ORDERED: LOSARTAN POTASS50 M1 PO (15:32)
--- NOTE | 2017-08-16 16:02 | Discharge Summary ---
Visit Information Visit Dates Admission Date: 08/12/17 Discharge Date: 08/21/17 Hospital Course Course Attending Physician: Navneet Garcia MD [facility] Phys[facility] Course: A: Ms. Thomason is a 71 year old female with past medical history significant for asthma, diabetes, HTN, HLD, and bradycardia presented with complaints of chest pain, wheezing and dyspnea. Problems: Symptomatic bradycardia with pacemaker placement: The patient was found to be bradycardic in the 40s and symptomatic. Pacemaker was placed by Dr. Lux and the patient began to have palpitations and pain afterwards. CXR revealed that the RA lead was displaced and the patient was sent for a succesful surgical revision. Her TSH and Free T4 were witin normal limits. [place] titer was negative. She was advised to follow up with cardiology (both Dr. Mckinney and Maci). Chest pain: Cardiology was consulted. Serial trop/ECG ruled out ACS. ECHO showed stage 2 diastolic dysfunction with a EF>65%. She was stevo downstairs for a dobutamine stress test but then had symptomatic bradycardia. She had a pacemaker palced as stated above. She should follow up with outpatient cardiology for possible stress test. Surgical clearance: Patient was instructed by medical team and Dr. Lux to follow up with Dr. Mckinney for surgical clearance for her knee surgery. Asthma exacerbation with esosinophilia: Pulmology was consulted. She received TRC/nebs as needed. She was placed on IV steroids and symbicort and eventually transitioned to oral steroids. She was discharged with continuation of the oral steroid taper, symbicort, and advised to follow up outpatient. Bradycardia: At rest the patient's heart rate dropped to 40s accompanied by intermittent lightheadedness. Cardiology was consulted. TSH/T4 were within normal limits and [place] titer was negative. We discussed option for a permanent pacemaker implantation for her symptomatic bradycardia. DM: We performed Accuchecks TIDAC/HS and administered Novolog on a sliding scale. HTN: We resumed her home medications except Lisinopril. She was started on Losartan per pulmonology to replace lisinopril. We gave her a perscription to continue her home hctz. HLD: We resumed her atorvastatin during admission. History of gastric bypass We continued a PPI during inpatient and discontinued her on her home pantoprazole. Allergies: Coded Allergies: aspirin (HIVES 05/26/17) Pertinent Lab Results: 08/12/17-1617 XRY-PORTABLE CHEST XRAY FINDINGS: Cardiomegaly. Lungs are clear. No acute airspace opacity. Visualized bony thorax is intact. IMPRESSION: No acute pulmonary disease. 08/13/17 US-EXT BILAT VENOUS DOPPLER IMPRESSION: Limited study with no DVT seen in the right thigh and groin. The patient refused an exam of the left leg. 08/15/17 CT HEAD WO IV CONTRAST IMPRESSION: 1. No acute intracranial pathology. 2. Mild left sphenoid sinus disease. 08/16/17 ECHOCARDIOGRAM CONCLUSIONS Normal size left ventricle. Mild concentric left ventricular hypertrophy. Normal left ventricular ejection fraction visually estimated at > 65%. "pseudonormal" filling pattern of the left ventricle for age (stage 2 diastolic dysfunction). Right ventricle at upper limits of normal. Normal atrial size. Mild tricuspid regurgitation. Mild pulmonary hypertension. Trace pulmonic regurgitation. Mildly dilated inferior vena cava. Disposition Summary Disposition Principal Diagnosis: Chest pain Additional Diagnosis: Asthma exacerbation Symptomatic Bradycardia S/P Pacemaker Placement Discharge Disposition: home or self care Discharge Instructions General Discharge Information Code Status: Do Not Resucitate/Intubat Patient's Diet: Heart healthy Patient's Activity: As tolerated Follow-Up Instructions/Appts: Please follow up with your PCP in 1 week. Please follow up with your upholstery tech in 1 week. Please follow up with Dr. Mckinney for cardiac clearance. Please follow up with Dr. Lux for your pacemaker. Please follow up with your pulmnologist in 1 week. Please take your medications as perscribed. Medications at Discharge Discharge Medications: Stop taking the following medications: Lisinopril/Hydrochlorothiazide (Lisinopril-Hctz 20-12.5 MG Tab) 20 MG-12.5 MG TABLET ORAL DAILY Qty = 90 Continue taking these medications: Escitalopram Oxalate (Escitalopram Oxalate) 10 MG TABLET 1 Tablet ORAL DAILY Qty = 30 Comments: NOT GIVEN THIS ADMISSION Pantoprazole Sodium (Pantoprazole Sodium) 40 MG TABLET.DR 1 Tablet ORAL DAILY Qty = 30 Comments: NOT GIVEN THIS ADMISSION Sitagliptin Phosphate (Januvia) 100 MG TABLET 1 Tablet ORAL DAILY Qty = 90 Comments: NOT GIVEN THIS ADMISSION Albuterol Sulfate (Ventolin Hfa) 90 MCG HFA.AER.AD 2 Puff Inhale through mouth EVERY 4-6 HOURS NEEDED as needed for SHORTNESS OF BREATH Qty = 1 Comments: NOT GIVEN THIS ADMISSION Gabapentin (Gabapentin) 300 MG CAPSULE 1 Capsule ORAL THREE TIMES DAILY Days = 30 Comments: Last Taken:08/21/17 Time:10:03A.M Duloxetine Hydrochloride (Cymbalta) 20 MG CAPSULE.DR 1 Capsule ORAL DAILY Comments: Last Taken:08/21/17 Time:10:03A.M Atorvastatin Calcium (Atorvastatin Calcium) 10 MG TABLET 1 Tablet ORAL DAILY Days = 90 Comments: Last Taken:08/21/17 Time:1003A.M Melatonin (Melatonin) 5 MG TABLET 1 Tablet ORAL Every night Qty = 30 Comments: Last Taken:08/20/17 Time:9:39P.M Insulin Aspart (Novolog) 100 UNIT/ML VIAL Units Inject into fatty tissue BEFORE MEALS AND AT BEDTIME Instructions: please use as per your PCPs recommendations Comments: Last Taken:08/21/17 Time:1250P.M Meloxicam (Meloxicam) 7.5 MG TABLET 1 Tablet ORAL DAILY Days = 40 Comments: NOT GIVEN THIS ADMISSION Mometasone Furoate (Nasonex) 50 MCG SPRAY.PUMP 1 Accord Both sides of nose THREE TIMES DAILY Days = 30 Comments: Last Taken:08/21/17 Time:10:03A.M Start taking the following new medications: Budesonide/Formoterol Fumarate (Symbicort 160-4.5 Mcg Inhaler) 160 MCG-4.5 MCG/ ACTUATION HFA.AER.AD 2 Puff Inhale through mouth TWICE DAILY Qty = 1 Refills = 2 Instructions: .. Comments: Last Taken:08/21/17 Time:10:03A.M Hydrochlorothiazide (Hydrochlorothiazide) 12.5 MG CAPSULE 1 Tablet ORAL DAILY Qty = 30 No Refills Instructions: .. Comments: Last Taken:08/21/17 Time:10:03A.M Losartan Potassium (Losartan Potassium) 50 MG TABLET 50 Milligram ORAL DAILY Qty = 30 No Refills Instructions: .. Comments: Last Taken:08/21/17 Time:10:03A.M Prednisone (Prednisone) 10 MG TABLET 0 ORAL DAILY Qty = 3 No Refills Instructions: PLEASE TAKE DATE TAB 08/22 2 08/23 1 .. Comments: Last Taken:08/21/17 Time:10:03A.M Copies To: Viv Nam MD; Yu HO,Momo Fiore; Maci HO PHD,Davin Fiore Prednisone (Prednisone) 10 MG TABLET 0 ORAL DAILY Qty = 3 No Refills Instructions: PLEASE TAKE DATE TAB 08/22 2 08/23 1 .. Comments: Last Taken:08/21/17 Time:10:03A.M Copies To: Viv Nam MD; Yu HO,Momo Fiore; Maci HO PHD,Davin Fiore
--- NOTE | 2017-08-16 20:04 | PN- Cardiology ---
Subjective Subjective: No complaints. Objective Vital Signs and I&Os Vital Signs Date Time Temp Pulse Resp B/P B/P Pulse O2 O2 Flow FiO2 Mean Ox Delivery Rate 08/16 1513 98.0 55 20 138/60 95 Room Air 08/16 1110 92 Room Air Room Air 08/16 1036 42 140/58 08/16 0703 98.6 36 20 140/58 95 Room Air 08/15 2303 Room Air 08/15 2251 98.0 49 20 126/60 99 Room Air 08/15 2030 96 Room Air Intake & Output 08/16 1600 08/16 0800 08/16 0000 08/15 1600 08/15 0800 08/15 0000 Intake Total 250 240 400 200 400 Output Total Balance 250 240 400 200 400 Intake, IV 150 Intake, Oral 100 240 400 200 400 Number 0 Bowel Movements Patient 200 lb 206 lb Weight Weight Bed scale Bed scale Measurement Method Physical Exam: Well-developed, obese female in no acute distress with nasal oxygen in place. Vital signs: See above. HEENT: Normocephalic, atraumatic, EOMI, moist mucous membranes. Neck: No JVD, no bruits. Lungs: Bilateral expiratory wheezing throughout both lung wells. Heart: S1, S2 with a soft (grade 1/6) systolic murmur. No gallop or rub. PMI fifth ICS at [facility]. Abdomen: Soft, nontender, positive bowel sounds. Extremities: No edema. Current Medications: Current Medications Sig/Jna Start time Last Medication Dose Route Stop Time Status Admin Acetaminophen 650 MG Q8P PRN 08/12 2245 AC 08/14 PO 2206 Acetaminophen/ 1 TAB Q4P PRN 08/14 1130 AC 08/15 Butalbital/Caffeine PO 1350 Albuterol Sulfate 3 ML Q4P PRN 08/14 1500 AC INH Atorvastatin Calcium 10 MG DAILY 08/13 1000 AC 08/16 PO 1036 Budesonide/ 2 PUF BID 08/13 1306 AC 08/16 Formoterol Fumarate INH 1037 Dextrose/Sodium 1,000 ML Q20H 08/16 2355 AC Chloride IV Dextrose/Sodium 1,000 ML Q20H 08/15 2345 DC 08/16 Chloride IV 0116 Duloxetine HCl 20 MG DAILY 08/13 1000 AC 08/16 PO 1036 Fluticasone 2 SPRAY DAILY 08/13 1000 AC 08/16 Propionate SALEEM 1037 Gabapentin 300 MG TID 08/13 1000 AC 08/16 PO 1601 Guaifenesin 10 ML Q4P PRN 08/14 0400 AC 08/14 PO 2206 Guaifenesin 600 MG Q12 08/13 1000 AC 08/16 PO 1036 Heparin Sodium 5,000 UNIT Q8 08/12 2200 AC 08/16 (Porcine) SC 1449 Hydrochlorothiazide 12.5 MG DAILY 08/13 1000 AC 08/16 PO 1038 Insulin Aspart 0 TIDAC 08/16 1700 AC SC 08/16 2355 Insulin Aspart 0 TIDAC 08/12 2230 DC 08/14 SC 1736 Insulin Human Regular 0 Q6 08/16 2359 AC CA Insulin Human Regular 8 UNITS .STK-MED ONE 08/16 0102 DC IV 08/16 0103 Insulin Human Regular 0 Q6 08/15 2359 DC 08/16 SC 0115 Losartan Potassium 50 MG DAILY 08/14 1000 AC 08/15 PO 1106 Melatonin 5 MG QPM 08/13 2200 AC 08/15 PO 2228 Omeprazole 40 MG 1/2H B/BREAKF/DINNER 08/13 1630 AC 08/16 PO 1601 Polyethylene Glycol 17 GM DAILY 08/15 1646 AC 08/16 PO 1037 Prednisone 40 MG DAILY 08/17 1000 AC PO 08/24 0959 Prednisone 50 MG DAILY 08/14 1000 DC 08/16 PO 1035 Senna 187 MG AT BEDTIME 08/15 2200 AC 08/15 PO 2228 Sodium Chloride 2 SPRAY Q4P PRN 08/12 2245 AC SALEEM Results Last 48 Hrs of Labs/Mics: Laboratory Tests 08/16/17 0847: Anion Gap 6, Estimated GFR > 60, BUN/Creatinine Ratio 34.4 H, CBC w Diff NO MAN DIFF REQ, RBC 4.22, MCV 88.8, MCH 28.6, MCHC 32.2 L, RDW 14.7 H, MPV 10.1, Gran % 59.3, Lymphocytes % 32.1, Monocytes % 7.6, Eosinophils % 0.8, Basophils % 0.2, Absolute Granulocytes 5.0, Absolute Lymphocytes 2.7, Absolute Monocytes 0.6 , Absolute Eosinophils 0.1, Absolute Basophils 0 08/15/17 0637: Anion Gap 5, Estimated GFR > 60, BUN/Creatinine Ratio 33.3 H Assessment/Plan Assessment/Plan [id number] w/ hx HTN, HLD, DM, previous syncope, bradycardia of uncertain etiology, and asthma with previous exacerbations who presented to the ED on 08/12/2017 w/ c/o SOB, wheezing, intermittent chills, and a nonproductive cough for the prior 24 hours and who is being maintained on telemetry for sinus bradycardia. Heart rates during waking hours typically 40-50s with dips down to the 30s during sleep. No definite indication at this time for permanent pacemaker, unless we can document symptoms of dizziness/lightheadedness with sinus. Continue telemetry? Yes
--- NOTE | 2017-08-16 20:34 | ECHOCARDIOGRAM REPORT ---
MAGI POLO Age: 71 : 1945 Gender: F Exam Date: 08/16/2017 08:10 Exam Location: [place] Ht (in): 58 Wt (lb): 200 BSA: 1.98 BP: 144 / 82 Ordering Physician: Enoch Marcos MD Referring Physician: Enoch Marcos MD Technologist: Manoj Ramierz [facility] Room Number: 174-1 Indications: HYPERTENSION Rhythm: Sinus Technical Quality: Fair FINDINGS Left Ventricle Normal size left ventricle. Mild concentric left ventricular hypertrophy. No obvious regional wall motion abnormalities. Normal left ventricular ejection fraction visually estimated at >65%. "pseudonormal" filling pattern of the left ventricle for age (stage 2 diastolic dysfunction). Right Ventricle Right ventricle at upper limits of normal. Right Atrium Normal right atrial size. Left Atrium Normal left atrial size. Mitral Valve Mild mitral annular calcification. Mitral valve mildly thickened. No mitral regurgitation. Aortic Valve Trileaflet aortic valve. Mild aortic sclerosis. No aortic valve stenosis or regurgitation. Tricuspid Valve Structurally normal tricuspid valve. Mild tricuspid regurgitation. Mild pulmonary hypertension. Right ventricular systolic pressure estimated to be elevated at 41 mmHg. Pulmonic Valve Pulmonic valve not well visualized, grossly normal. Trace pulmonic regurgitation. Pericardium No pericardial effusion. Great Vessels Normal size aortic root. Mildly dilated inferior vena cava. CONCLUSIONS Normal size left ventricle. Mild concentric left ventricular hypertrophy. Normal left ventricular ejection fraction visually estimated at > 65%. "pseudonormal" filling pattern of the left ventricle for age (stage 2 diastolic dysfunction). Right ventricle at upper limits of normal. Normal atrial size. Mild tricuspid regurgitation. Mild pulmonary hypertension. Trace pulmonic regurgitation. Mildly dilated inferior vena cava. Meek Mckinney M.D. (Electronically Signed) Final Date: 16 August 2017 20:33 MEASUREMENTS (Male / Female) Normal Values 2D ECHO LV Diastolic Diameter PLAX 3.9 cm 4.2 - 5.9 / 3.9 - 5.3 cm LV Systolic Diameter PLAX 2.3 cm 2.1 - 4.0 cm LV Fractional Shortening PLAX 41.0 % 25 - 46 % LV Ejection Fraction 2D Teich 72.5 % IVS Diastolic Thickness 1.1 cm LVPW Diastolic Thickness 1.1 cm LV Relative Wall Thickness 0.6 RV Internal Dim ED PLAX 3.6 cm 1.9 - 3.8 cm LVOT Diameter 1.8 cm Aortic Root Diameter 2.3 cm LA Systolic Diameter LX 3.8 cm 3.0 - 4.0 / 2.7 - 3.8 cm LA Volume 40.0 cm 18 - 58 / 22 - 52 cm Ascending Aorta Diameter 3.0 cm DOPPLER AV Peak Velocity 142.0 cm/s AV Peak Gradient 8.1 mmHg AV Mean Velocity 92.6 cm/s AV Mean Gradient 4.0 mmHg AV Velocity Time Integral 39.0 cm LVOT Peak Velocity 93.2 cm/s LVOT Peak Gradient 3.5 mmHg LVOT Mean Velocity 57.0 cm/s LVOT Mean Gradient 2.0 mmHg LVOT Velocity Time Integral 27.2 cm LVOT Stroke Volume 69.2 cm AV Area Cont Eq vti 1.8 cm AV Area Cont Eq pk 1.7 cm MV Peak Velocity 99.3 cm/s MV Peak Gradient 3.9 mmHg MV Mean Velocity 44.0 cm/s MV Mean Gradient 1.0 mmHg Mitral E Point Velocity 95.3 cm/s Mitral A Point Velocity 87.9 cm/s Mitral E to A Ratio 1.1 MV PHT Velocity 95.0 cm/s MV Deceleration [place] 237.0 cm/s MV Pressure Half Time 120.3 ms MV Area PHT 1.8 cm MV Deceleration Time 299.0 ms TR Peak Velocity 280.0 cm/s TR Peak Gradient 31.4 mmHg Right Atrial Pressure 10.0 mmHg Pulmonary Artery Systolic Pressu 41.4 mmHg Right Ventricular Systolic Press 41.4 mmHg LV E' Lateral Velocity 8.5 cm/s Mitral E to LV E' Lateral Ratio 11.2 LV E' Septal Velocity 6.2 cm/s Mitral E to LV E' Septal Ratio 15.3
[2017-08-16 22:28] VITALS: BP 130/62
[2017-08-17 06:50] VITALS: BP 160/70
[2017-08-17 07:01] VITALS: BP 150/66
--- NOTE | 2017-08-17 08:27 | PN- Housestaff ---
Bryce HO,[facility] 08/17/17 0826: Subjective Follow-up For: asthma exacerbation chest pain Tele-Events Since Last Visit: SB, BBB HR 37-41 QRS .14 [place] .16 Subjective: No acute events overnight. States no issues overnight. Has no pain. American speaking only. Review of Systems Constitutional: Reports: no symptoms, see HPI. Cardiovascular: Reports: no symptoms. Respiratory: Reports: no symptoms. Gastrointestinal: Reports: no symptoms. Genitourinary: Reports: no symptoms. Musculoskeletal: Reports: no symptoms. Objective Last 24 Hrs of Vital Signs/I&O Vital Signs Date Time Temp Pulse Resp B/P B/P Pulse O2 O2 Flow FiO2 Mean Ox Delivery Rate 08/17 1600 96 Room Air 08/17 1519 97.1 60 20 138/70 95 Room Air 08/17 1358 95 Room Air 08/17 1217 56 140/80 08/17 0800 95 Room Air 08/17 0701 150/66 08/17 0650 98.5 39 20 160/70 97 Room Air 08/17 0025 97 Room Air 08/16 2228 98.3 47 20 130/62 96 Room Air 08/16 2124 95 Room Air Intake & Output 08/17 1600 08/17 0800 08/17 0000 Intake Total 750 520 440 Output Total 350 Balance 750 520 90 Intake, IV 150 400 20 Intake, Oral 600 120 420 Number 1 Bowel Movements Output, Urine 350 Patient 204 lb Weight Physical Exam General Appearance: Alert, Oriented X3, Cooperative, No Acute Distress, sleepy still as she just woke up Cardiovascular: Regular Rate, Normal S1, Normal S2 Lungs: Clear to Auscultation, Normal Air Movement Abdomen: Normal Bowel Sounds, Soft, No Tenderness Extremities: trace LE edema Vascular: 2+ radial pulses Current Medications: Current Medications Sig/Jan Start time Last Medication Dose Route Stop Time Status Admin Acetaminophen 650 MG Q8P PRN 08/12 2245 AC 08/14 PO 2206 Acetaminophen/ 1 TAB Q4P PRN 08/14 1130 AC 08/15 Butalbital/Caffeine PO 1350 Albuterol Sulfate 3 ML Q4P PRN 08/14 1500 AC INH Atorvastatin Calcium 10 MG DAILY 08/13 1000 AC 08/17 PO 1215 Budesonide/ 2 PUF BID 08/13 1306 AC 08/17 Formoterol Fumarate INH 1217 Dextrose/Sodium 1,000 ML Q20H 08/16 2355 DC 08/16 Chloride IV 2330 Dobutamine HCl 250 MG ONCE ONE 08/17 1000 DC Dextrose/Water 250 ML IV 08/17 1335 Duloxetine HCl 20 MG DAILY 08/13 1000 AC 08/17 PO 1217 Fluticasone 2 SPRAY DAILY 08/13 1000 AC 08/17 Propionate SALEEM 1216 Gabapentin 300 MG TID 08/13 1000 AC 08/17 PO 1600 Guaifenesin 10 ML Q4P PRN 08/14 0400 AC 08/14 PO 2206 Guaifenesin 600 MG Q12 08/13 1000 AC 08/17 PO 1215 Heparin Sodium 5,000 UNIT Q8 08/12 2200 AC 08/17 (Porcine) SC 1417 Hydrochlorothiazide 12.5 MG DAILY 08/13 1000 AC 08/17 PO 1215 Insulin Aspart 0 TIDAC 08/17 1700 AC 08/17 SC 1616 Insulin Aspart 0 TIDAC 08/16 1700 DC 08/16 SC 08/16 2355 2010 Insulin Human Regular 1 UNITS .ST-MED ONE 08/17 0538 DC IV 08/17 0539 Insulin Human Regular 0 Q6 08/16 2359 DC 08/17 SC 0541 Losartan Potassium 50 MG DAILY 08/14 1000 AC 08/17 PO 1217 Melatonin 5 MG QPM 08/13 2200 AC 08/16 PO 2124 Omeprazole 40 MG 1/2H B/BREAKF/DINNER 08/13 1630 AC 08/17 PO 1600 Polyethylene Glycol 17 GM DAILY 08/15 1646 AC 08/17 PO 1216 Prednisone 40 MG DAILY 08/17 1000 AC 08/17 PO 08/24 0959 1216 Senna 187 MG AT BEDTIME 08/15 2200 AC 08/16 PO 2124 Sodium Chloride 2 SPRAY Q4P PRN 08/12 2245 AC SALEEM Last 24 Hrs of Lab/Mariusz Results Last 24 Hrs of Labs/Mics: Laboratory Tests 08/17/17 0806: Pulse Ox Probe Site L PINKY, ABG O2 Sat Calc/Joanne 97.0 H, O2 Concentration % RA , O2 Delivery Method RA Assessment/Plan Assessment: Ms. Thomason is a 71 year old female with past medical history significant for asthma, diabetes, HTN, HLD, and bradycardia presented with complaints of wheezing and dyspnea. Chest pain * Serial trop/ECG negative for ACS * Echo: lvef >65% with stage 2 diastolic dysfunction * Doubutamine stress test pending for a.m. Cardioogy will discuss pacemaker implantation for symptomatic bradycardia * Cardio recommendations appreciated * Patient family reports pt has knee surgery in September and need cardiac clearance by 08/26/17 if our furnace feeder can clear her because she missed her appt today with Dr. Denise Mattson Asthma exacerbation * eosinophils elevated on cbc, h/o atopy and aspirin allergy * Pulmology consultation, appreciate recommendations * Continue prednisone taper * Nocturnal pulse oximetry * symbicort 160 bid * prn nebs * cont prednisone taper Bradycardia: * Cardiology consulted, appreciate recommendations * May benefit from outpatient nuclear stress test * TSH/T4 wnl * [place] titer negative DM: * Accuchecks TIDAC/HS * Novolog sliding scale HTN: * Continue HCTZ * Lisinopril discontinued * Continue losartan HLD: * Continue statin therapy Morbid obesity Class III-history of gastric bypass * PO PPI BID. will need to continue during discharge * Diabetic diet DVT ppx - heparin subq DNR/DNI Problem List: 1. Asthma exacerbation 2. Dyspnea 3. Chest pain 4. Bradycardia Pain Ratin Pain Location: none Pain Goal: Pain 4 or less Pain Plan: pain pathway Tomorrow's Labs & Rationales: cbc bep Navneet Garcia 08/17/17 1357: Attending MD Review Statement Attending Statement Attending MD Statement: examined this patient, discuss w/resident/PA/CROWN PERFORATOR OPERATOR, agreed w/resident/PA/CROWN PERFORATOR OPERATOR, reviewed EMR data (avail), discussed with nursing, discussed with case mgmt Attending Assessment/Plan: Echo done reveals normal ef and stage 2 diastolic dysfunction. plan is for stress test today. will f/u on results and make further plans based on results. d/w pt the care plan.
--- NOTE | 2017-08-17 12:13 | PN- Pulmonary ---
Subjective HPI/Critical Care Issues: Stable sleeping comfortably Objective Current Medications: Current Medications Sig/Jan Start time Last Medication Dose Route Stop Time Status Admin Acetaminophen 650 MG Q8P PRN 08/12 2245 AC 08/14 PO 2206 Acetaminophen/ 1 TAB Q4P PRN 08/14 1130 AC 08/15 Butalbital/Caffeine PO 1350 Albuterol Sulfate 3 ML Q4P PRN 08/14 1500 AC INH Atorvastatin Calcium 10 MG DAILY 08/13 1000 AC 08/16 PO 1036 Budesonide/ 2 PUF BID 08/13 1306 AC 08/16 Formoterol Fumarate INH 2128 Dextrose/Sodium 1,000 ML Q20H 08/16 2355 AC 08/16 Chloride IV 2330 Dextrose/Sodium 1,000 ML Q20H 08/15 2345 DC 08/16 Chloride IV 0116 Dobutamine HCl 250 MG ONCE ONE 08/17 1000 DC Dextrose/Water 250 ML IV 08/17 1001 Duloxetine HCl 20 MG DAILY 08/13 1000 AC 08/16 PO 1036 Fluticasone 2 SPRAY DAILY 08/13 1000 AC 08/16 Propionate SALEEM 1037 Gabapentin 300 MG TID 08/13 1000 AC 08/16 PO 2124 Guaifenesin 10 ML Q4P PRN 08/14 0400 AC 08/14 PO 2206 Guaifenesin 600 MG Q12 08/13 1000 AC 08/16 PO 2124 Heparin Sodium 5,000 UNIT Q8 08/12 2200 AC 08/17 (Porcine) NM 0541 Hydrochlorothiazide 12.5 MG DAILY 08/13 1000 AC 08/16 PO 1038 Insulin Aspart 0 TIDAC 08/16 1700 DC 08/16 NM 08/16 2355 2010 Insulin Human Regular 0 Q6 08/16 2359 AC 08/17 NM 0541 Insulin Human Regular 0 Q6 08/15 2359 DC 08/16 NM 0115 Losartan Potassium 50 MG DAILY 08/14 1000 AC 08/15 PO 1106 Melatonin 5 MG QPM 08/13 2200 AC 08/16 PO 2124 Omeprazole 40 MG 1/2H B/BREAKF/DINNER 08/13 1630 AC 08/17 PO 0542 Polyethylene Glycol 17 GM DAILY 08/15 1646 AC 08/16 PO 1037 Prednisone 40 MG DAILY 08/17 1000 AC PO 08/24 0959 Prednisone 50 MG DAILY 08/14 1000 DC 08/16 PO 1035 Senna 187 MG AT BEDTIME 08/15 2199 AC 08/16 PO 2124 Sodium Chloride 2 SPRAY Q4P PRN 08/12 2245 AC SALEEM Vital Signs & I&O Last 24 Hrs of Vitals and I&O: Vital Signs Date Time Temp Pulse Resp B/P B/P Pulse O2 O2 Flow FiO2 Mean Ox Delivery Rate 08/17 08 95 Room Air 08/17 0701 150/66 08/17 0650 98.5 39 20 160/70 97 Room Air 08/17 0025 97 Room Air 08/16 2228 98.3 47 20 130/62 96 Room Air 08/16 2124 95 Room Air 08/16 1513 98.0 55 20 138/60 95 Room Air Intake & Output 08/17 1600 08/17 0800 08/17 0000 Intake Total 520 440 Output Total 350 Balance 520 90 Intake, IV 400 20 Intake, Oral 120 420 Number 1 Bowel Movements Output, Urine 350 Impression/Plan Impression/Plan Impression/Plan: General Appearance Cooperative, yi speaking only HEENT frontal and maxillary sinus tenderness, normal ear exam Cardiovascular 2+ radial and pedal pulses, chest tender to palpation, systolic murmur Lungs Clear to Auscultation, mild wheezing and most of the wheezing is from her vocal cord as she may have vc dysfunction, improved since yesterday Normal Air Movement Abdomen decrease abd sounds, soft, nontender Neurological CN2-12 grossly intact Extremities no edema of LE CXR normal CT in dec No pulmonary embolus demonstrated. No consolidation. There are scattered areas of air trapping and a few small nonspecific lung cysts. There is some groundglass disease. Possibilities include alveolitis or small airways disease. IMPRESSION 71 year old female with past medical history significant for asthma, diabetes, HTN, HLD, Previous gastric bypass surg, recurrent gerd now with bradycardia - presented with complaints of wheezing and dyspnea. 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 as her wheezing appears mainly from the vocal cord area on exhalation * GERD with gastric bypass with prob recurrent regurg due to dietary noncompliance causing most of her symptoms probably * Small airway disease and airtrapping noted in the ct prob due to above * Morbid obesity with previous gastric bypass with clinical evidence of UARS / sleep apnea * Kelvin on admission - needs eval Cardio on board * DM/HTN on ACI with vc dysfunction * Head ache ct neg with sinusitis mild REC * PRednisone wean in 7 days * KEep hob up * PPI qd upon dc * PRn nebs from now on * Symbicort 160 bid * Losartan 50mg instead of lisinopril * IF she has post nasal symptoms then will consider abx and hold for now * COnt current meds Will follow prn
[2017-08-17 15:19] VITALS: BP 138/70
--- NOTE | 2017-08-17 16:10 | PN- Cardiology ---
Subjective Subjective: Complaining of intermittent dizziness and lightheadedness. Objective Vital Signs and I&Os Vital Signs Date Time Temp Pulse Resp B/P B/P Pulse O2 O2 Flow FiO2 Mean Ox Delivery Rate 08/17 1519 97.1 60 20 138/70 95 Room Air 08/17 1358 95 Room Air 08/17 1217 56 140/80 08/17 0800 95 Room Air 08/17 0701 150/66 08/17 0650 98.5 39 20 160/70 97 Room Air 08/17 0025 97 Room Air 08/16 2228 98.3 47 20 130/62 96 Room Air 08/16 2124 95 Room Air Intake & Output 08/17 1600 08/17 0800 08/17 0000 08/16 1600 08/16 0800 08/16 0000 Intake Total 750 520 440 250 240 Output Total 350 Balance 750 520 90 250 240 Intake, IV 150 400 20 150 Intake, Oral 600 120 420 100 240 Number 1 Bowel Movements Output, Urine 350 Patient 204 lb 204 lb Weight Weight Bed scale Measurement Method Physical Exam: Well-developed, obese female in no acute distress with nasal oxygen in place. Vital signs: See above. HEENT: Normocephalic, atraumatic, EOMI, moist mucous membranes. Neck: No JVD, no bruits. Lungs: Bilateral expiratory wheezing throughout both lung wells. Heart: S1, S2 with a soft (grade 1/6) systolic murmur. No gallop or rub. PMI fifth ICS at MCL. Abdomen: Soft, nontender, positive bowel sounds. Extremities: No edema. Current Medications: Current Medications Sig/Jan Start time Last Medication Dose Route Stop Time Status Admin Acetaminophen 650 MG Q8P PRN 08/12 2245 AC 08/14 PO 2206 Acetaminophen/ 1 TAB Q4P PRN 08/14 1130 AC 08/15 Butalbital/Caffeine PO 1350 Albuterol Sulfate 3 ML Q4P PRN 08/14 1500 AC INH Atorvastatin Calcium 10 MG DAILY 08/13 1000 AC 08/17 PO 1215 Budesonide/ 2 PUF BID 08/13 1306 AC 08/17 Formoterol Fumarate INH 1217 Dextrose/Sodium 1,000 ML Q20H 08/16 2355 DC 08/16 Chloride IV 2330 Dobutamine HCl 250 MG ONCE ONE 08/17 1000 DC Dextrose/Water 250 ML IV 08/17 1335 Duloxetine HCl 20 MG DAILY 08/13 1000 AC 08/17 PO 1217 Fluticasone 2 SPRAY DAILY 08/13 1000 AC 08/17 Propionate S[place] 1216 Gabapentin 300 MG TID 08/13 1000 AC 08/17 PO 1600 Guaifenesin 10 ML Q4P PRN 08/14 0400 AC 08/14 PO 2206 Guaifenesin 600 MG Q12 08/13 1000 AC 08/17 PO 1215 Heparin Sodium 5,000 UNIT Q8 08/12 2200 AC 08/17 (Porcine) SC 1417 Hydrochlorothiazide 12.5 MG DAILY 08/13 1000 AC 08/17 PO 1215 Insulin Aspart 0 TIDAC 08/17 1700 AC SC Insulin Aspart 0 TIDAC 08/16 1700 DC 08/16 SC 08/16 2355 2010 Insulin Human Regular 1 UNITS .STK-MED ONE 08/17 0538 DC IV 08/17 0539 Insulin Human Regular 0 Q6 08/16 2359 DC 08/17 SC 0541 Losartan Potassium 50 MG DAILY 08/14 1000 AC 08/17 PO 1217 Melatonin 5 MG QPM 08/13 2200 AC 08/16 PO 2124 Omeprazole 40 MG 1/2H B/BREAKF/DINNER 08/13 1630 AC 08/17 PO 1600 Polyethylene Glycol 17 GM DAILY 08/15 1646 AC 08/17 PO 1216 Prednisone 40 MG DAILY 08/17 1000 AC 08/17 PO 08/24 0959 1216 Senna 187 MG AT BEDTIME 08/15 2200 AC 08/16 PO 2124 Sodium Chloride 2 SPRAY Q4P PRN 08/12 2245 AC SALEEM Results Last 48 Hrs of Labs/Mics: Laboratory Tests 08/17/17 0806: Pulse Ox Probe Site L PINKY, ABG O2 Sat Calc/Joanne 97.0 H, O2 Concentration % RA , O2 Delivery Method RA 08/16/17 0847: Anion Gap 6, Estimated GFR > 60, BUN/Creatinine Ratio 34.4 H, CBC w Diff NO MAN DIFF REQ, RBC 4.22, MCV 88.8, MCH 28.6, MCHC 32.2 L, RDW 14.7 H, MPV 10.1, Gran % 59.3, Lymphocytes % 32.1, Monocytes % 7.6, Eosinophils % 0.8, Basophils % 0.2, Absolute Granulocytes 5.0, Absolute Lymphocytes 2.7, Absolute Monocytes 0.6 , Absolute Eosinophils 0.1, Absolute Basophils 0 Assessment/Plan Assessment/Plan [id number] w/ hx HTN, HLD, DM, previous syncope, bradycardia of uncertain etiology, and asthma with previous exacerbations who presented to the ED on 08/12/2017 w/ c/o SOB, wheezing, intermittent chills, and a nonproductive cough for the prior 24 hours and who is being maintained on telemetry for sinus bradycardia. Heart rates during waking hours typically 40-50s with dips down to the 30s during sleep. Brought down to cardiology for planned dobutamine stress test, but heart rate was 40 bpm and she has been having intermittent dizziness/lightheadedness. Will discuss option of permanent pacemaker implantation for symptomatic bradycardia. Continue telemetry? Yes
[2017-08-17 21:57] VITALS: BP 130/70
[2017-08-18 06:54] VITALS: BP 154/64
--- NOTE | 2017-08-18 07:19 | PN- Housestaff ---
Bryce HO,[facility] 08/18/17 0718: Subjective Follow-up For: asthma chest pain Tele-Events Since Last Visit: SB 38-41 QRS .1 [place] .16 Subjective: No acute events overnight. Patient was supposed to get stressed test yesterday however she had symptomatic bradycardia and did not receive the stress test. She will get a pacemaker this afternoon. Last night: states she has no pain. States she did not sleep well last night due to distrubances. Of note, she is citizen of [place] only speaking. Review of Systems Constitutional: Reports: no symptoms. Comments: Pt is citizen of [place] speaking only. States no sx but language barrier so unsure. Objective Last 24 Hrs of Vital Signs/I&O Vital Signs Date Time Temp Pulse Resp B/P B/P Pulse O2 O2 Flow FiO2 Mean Ox Delivery Rate 08/18 0818 60 148/60 08/18 0800 96 Room Air 08/18 0654 97.7 38 20 154/64 98 Room Air 08/17 2157 98.1 64 20 130/70 93 08/17 1600 96 Room Air 08/17 1519 97.1 60 20 138/70 95 Room Air 08/17 1358 95 Room Air 08/17 1217 56 140/80 Intake & Output 08/18 1600 08/18 0800 08/18 0000 Intake Total 240 150 Output Total Balance 240 150 Intake, Oral 240 150 Patient 203 lb Weight Physical Exam General Appearance: Alert, Oriented X3, Cooperative, No Acute Distress HEENT: pupils dilated but reactive to light b/l Cardiovascular: bradycardia Lungs: Clear to Auscultation, Normal Air Movement Abdomen: Normal Bowel Sounds, Soft, No Tenderness Extremities: 1+ LE edema b/l Vascular: 2+ radial pulses Current Medications: Current Medications Sig/Jan Start time Last Medication Dose Route Stop Time Status Admin Acetaminophen 650 MG Q8P PRN 08/12 2245 AC 08/14 PO 2206 Acetaminophen/ 1 TAB Q4P PRN 08/14 1130 AC 08/15 Butalbital/Caffeine PO 1350 Albuterol Sulfate 3 ML Q4P PRN 08/14 1500 AC INH Atorvastatin Calcium 10 MG DAILY 08/13 1000 AC 08/18 PO 0818 Budesonide/ 2 PUF BID 08/13 1306 AC 08/18 Formoterol Fumarate INH 0818 Dextrose/Sodium 1,000 ML Q20H 08/16 2355 DC 08/16 Chloride IV 2330 Dobutamine HCl 250 MG ONCE ONE 08/17 1000 DC Dextrose/Water 250 ML IV 08/17 1335 Duloxetine HCl 20 MG DAILY 08/13 1000 AC 08/18 PO 0818 Fluticasone 2 SPRAY DAILY 08/13 1000 AC 08/18 Propionate SALEEM 0819 Gabapentin 300 MG TID 08/13 1000 AC 08/18 PO 0818 Guaifenesin 10 ML Q4P PRN 08/14 0400 AC 08/14 PO 2206 Guaifenesin 600 MG Q12 08/13 1000 AC 08/18 PO 0818 Heparin Sodium 5,000 UNIT Q8 08/12 2200 AC 08/18 (Porcine) SC 0600 Hydrochlorothiazide 12.5 MG DAILY 08/13 1000 AC 08/18 PO 0818 Insulin Aspart 0 TIDAC 08/17 1700 AC 08/17 SC 1616 Insulin Human Regular 0 Q6 08/16 2359 DC 08/17 SC 0541 Ipratropium [place] 2.5 ML Q4 HRS NEEDED PRN 08/17 2030 AC INH Losartan Potassium 50 MG DAILY 08/14 1000 AC 08/18 PO 0818 Melatonin 5 MG QPM 08/13 2200 AC 08/17 PO 2209 Omeprazole 40 MG 1/2H B/BREAKF/DINNER 08/13 1630 AC 08/18 PO 0600 Polyethylene Glycol 17 GM DAILY 08/15 1646 AC 08/18 PO 0817 Prednisone 40 MG DAILY 08/17 1000 AC 08/18 PO 08/24 0959 0818 Senna 187 MG AT BEDTIME 08/15 2200 AC 08/17 PO 2209 Sodium Chloride 2 SPRAY Q4P PRN 08/12 2245 AC SALEEM Last 24 Hrs of Lab/Mariusz Results Last 24 Hrs of Labs/Mics: Laboratory Tests 08/18/17 0624: Anion Gap 6, Estimated GFR > 60, BUN/Creatinine Ratio 37.5 H, CBC w Diff NO MAN DIFF REQ, RBC 3.88 L, MCV 88.1, MCH 28.8, MCHC 32.7 L, RDW 14.6 H, MPV 10.1, Gran % 62.0, Lymphocytes % 31.3, Monocytes % 5.8, Eosinophils % 0.7, Basophils % 0.2, Absolute Granulocytes 6.1, Absolute Lymphocytes 3.1, Absolute Monocytes 0.6 , Absolute Eosinophils 0.1, Absolute Basophils 0 Assessment/Plan Assessment: Ms. Thomason is a 71 year old female with past medical history significant for asthma, diabetes, HTN, HLD, and bradycardia presented with complaints of wheezing and dyspnea. Chest pain Pt currently NPO. Will go for pacemaker placement by Dr. Lux this afternoon. * Serial trop/ECG negative for ACS * Echo: lvef >65% with stage 2 diastolic dysfunction * Cardio recommendations appreciated * Patient family reports pt has knee surgery in September and need cardiac clearance by 08/26/17 if our ditch tender can clear her because she missed her appt today with Dr. Denise Mattson Asthma exacerbation * eosinophils elevated on cbc, h/o atopy and aspirin allergy * Pulmology consultation, appreciate recommendations * Continue prednisone taper * Nocturnal pulse oximetry * symbicort 160 bid * prn nebs * cont prednisone taper Bradycardia: * Cardiology consulted, appreciate recommendations * May benefit from outpatient nuclear stress test * TSH/T4 wnl * [place] titer negative DM: * Accuchecks TIDAC/HS * Novolog sliding scale HTN: * Continue HCTZ * Lisinopril discontinued * Continue losartan HLD: * Continue statin therapy Morbid obesity Class III-history of gastric bypass * PO PPI BID. will need to continue during discharge * Diabetic diet DVT ppx - heparin subq DNR/DNI Problem List: 1. Chest pain 2. Asthma exacerbation 3. Bradycardia Pain Ratin Pain Location: none Pain Goal: Pain 4 or less Pain Plan: pain pathway Tomorrow's Labs & Rationales: hepatitis panel Navneet Garcia 08/18/17 1313: Objective Last 24 Hrs of Vital Signs/I&O Vital Signs Date Time Temp Pulse Resp B/P B/P Pulse O2 O2 Flow FiO2 Mean Ox Delivery Rate 08/18 0818 60 148/60 08/18 0800 96 Room Air 08/18 0654 97.7 38 20 154/64 98 Room Air 08/17 2157 98.1 64 20 130/70 93 08/17 1600 96 Room Air 08/17 1519 97.1 60 20 138/70 95 Room Air 08/17 1358 95 Room Air Intake & Output 08/18 1600 08/18 0800 08/18 0000 Intake Total 240 150 Output Total Balance 240 150 Intake, Oral 240 150 Patient 92.136 kg Weight Attending MD Review Statement Attending Statement Attending MD Statement: examined this patient, discuss w/resident/PA/JOB INTERVIEWER, agreed w/resident/PA/JOB INTERVIEWER, reviewed EMR data (avail), discussed with nursing, discussed with case mgmt Attending Assessment/Plan: Pt with symptomatic bradycardia. pt going for ppm placement today afternoon. Will f/u on PT/PTT prior to the procedure.
[2017-08-18 08:22] LABS: ABSOLUTE BASOPHIL COUNT 0 /CUMM (0.0-0.2); ABSOLUTE EOSINOPHIL COUNT 0.1 /CUMM (0.0-0.7); ABSOLUTE GRANULOCYTE CT 6.1 /CUMM (1.4-6.5); ABSOLUTE LYMPH COUNT 3.1 /CUMM (1.2-3.4); ABSOLUTE MONOCYTE COUNT 0.6 /CUMM (0.10-0.60); BASOPHIL % 0.2 % (0.0-2.0); EOSINOPHIL % 0.7 % (0-5); HEMATOCRIT 34.2 % (37-47); MEAN CORPUSCULAR HGB 28.8 PG (27.0-31.0); MEAN CORPUSCULAR HGB CONC 32.7 G/DL (33.0-37.0); MEAN CORPUSCULAR VOLUME 88.1 FL (81.0-99.0); MEAN PLATELET VOLUME 10.1 FL (7.4-10.4); PLATELET COUNT 230 /CUMM (130-400); RBC DISTRIBUTION WIDTH 14.6 % (11.5-14.5); RED BLOOD CELL CT 3.88 /CUMM (4.20-5.40); WHITE BLOOD CELL COUNT 9.8 /CUMM (4.8-10.8)
--- NOTE | 2017-08-18 10:28 | PN- Pulmonary ---
Subjective HPI/Critical Care Issues: Kelvin noted yesterday and was symptomatic did not complete her stress test Objective Current Medications: Current Medications Sig/Jan Start time Last Medication Dose Route Stop Time Status Admin Acetaminophen 650 MG Q8P PRN 08/12 2245 AC 08/14 PO 2206 Acetaminophen/ 1 TAB Q4P PRN 08/14 1130 AC 08/15 Butalbital/Caffeine PO 1350 Albuterol Sulfate 3 ML Q4P PRN 08/14 1500 AC INH Atorvastatin Calcium 10 MG DAILY 08/13 1000 AC 08/18 PO 0818 Budesonide/ 2 PUF BID 08/13 1306 AC 08/18 Formoterol Fumarate INH 0818 Dextrose/Sodium 1,000 ML Q20H 08/16 2355 DC 08/16 Chloride IV 2330 Dobutamine HCl 250 MG ONCE ONE 08/17 1000 DC Dextrose/Water 250 ML IV 08/17 1335 Duloxetine HCl 20 MG DAILY 08/13 1000 AC 08/18 PO 0818 Fluticasone 2 SPRAY DAILY 08/13 1000 AC 08/18 Propionate SALEEM 0819 Gabapentin 300 MG TID 08/13 1000 AC 08/18 PO 0818 Guaifenesin 10 ML Q4P PRN 08/14 0400 AC 08/14 PO 2206 Guaifenesin 600 MG Q12 08/13 1000 AC 08/18 PO 0818 Heparin Sodium 5,000 UNIT Q8 08/12 2200 AC 08/18 (Porcine) SC 0600 Hydrochlorothiazide 12.5 MG DAILY 08/13 1000 AC 08/18 PO 0818 Insulin Aspart 0 TIDAC 08/17 1700 AC 08/17 SC 1616 Insulin Human Regular 0 Q6 08/16 2359 DC 08/17 SC 0541 Ipratropium [place] 2.5 ML Q4 HRS NEEDED PRN 08/17 2030 AC INH Losartan Potassium 50 MG DAILY 08/14 1000 AC 08/18 PO 0818 Melatonin 5 MG QPM 08/13 2200 AC 08/17 PO 2209 Omeprazole 40 MG 1/2H B/BREAKF/DINNER 08/13 1630 AC 08/18 PO 0600 Polyethylene Glycol 17 GM DAILY 08/15 1646 AC 08/18 PO 0817 Prednisone 40 MG DAILY 08/17 1000 AC 08/18 PO 08/24 0959 0818 Senna 187 MG AT BEDTIME 08/15 2200 AC 08/17 PO 2209 Sodium Chloride 2 SPRAY Q4P PRN 08/12 2245 AC SALEEM Vital Signs & I&O Last 24 Hrs of Vitals and I&O: Vital Signs Date Time Temp Pulse Resp B/P B/P Pulse O2 O2 Flow FiO2 Mean Ox Delivery Rate 08/18 0818 60 148/60 08/18 0800 96 Room Air 08/18 0654 97.7 38 20 154/64 98 Room Air 08/17 2157 98.1 64 20 130/70 93 08/17 1600 96 Room Air 08/17 1519 97.1 60 20 138/70 95 Room Air 08/17 1358 95 Room Air 08/17 1217 56 140/80 Intake & Output 08/18 1600 08/18 0800 08/18 0000 Intake Total 240 150 Output Total Balance 240 150 Intake, Oral 240 150 Patient 203 lb Weight Impression/Plan Impression/Plan Impression/Plan: General Appearance Cooperative, [place] speaking only HEENT frontal and maxillary sinus tenderness, normal ear exam Cardiovascular 2+ radial and pedal pulses, chest tender to palpation, systolic murmur Lungs Clear to Auscultation, mild wheezing and most of the wheezing is from her vocal cord as she may have vc dysfunction, improved since yesterday Normal Air Movement Abdomen decrease abd sounds, soft, nontender Neurological CN2-12 grossly intact Extremities no edema of LE CXR normal CT in dec No pulmonary embolus demonstrated. No consolidation. There are scattered areas of air trapping and a few small nonspecific lung cysts. There is some groundglass disease. Possibilities include alveolitis or small airways disease. IMPRESSION 71 year old female with past medical history significant for asthma, diabetes, HTN, HLD, Previous gastric bypass surg, recurrent gerd now with bradycardia - presented with complaints of wheezing and dyspnea. 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 as her wheezing appears mainly from the vocal cord area on exhalation * GERD with gastric bypass with prob recurrent regurg due to dietary noncompliance causing most of her symptoms probably * Small airway disease and airtrapping noted in the ct prob due to above * Morbid obesity with previous gastric bypass with clinical evidence of UARS / sleep apnea * Kelvin -Cardio on board * DM/HTN on ACI with vc dysfunction * Head ache ct neg with sinusitis mild resolved REC * PRednisone wean in 6 days * KEep hob up * PPI qd upon dc * PRn nebs from now on * Symbicort 160 bid * Losartan 50mg instead of lisinopril Will follow prn
[2017-08-18 14:09] VITALS: BP 104/60
[2017-08-18 14:21] LABS: PT 10.2 SEC (9.4-12.5); PTT 32 SEC (25-37)
--- NOTE | 2017-08-18 18:36 | RADIOLOGY REPORT ---
EXAMINATION: XR PORTABLE CHEST CLINICAL INFORMATION: Pacemaker insertion. COMPARISON: Chest x-ray 08/12/2017 TECHNIQUE: Portable frontal view of the chest was obtained. 5:58 PM FINDINGS: There is been placement of a pacemaker since prior chest x-ray. Pacemaker lead in right atrium and right ventricle. There is no pneumothorax. No acute abnormality of the chest. Lung volume is low causing crowding of the bronchovascular markings. No significant pulmonary vascular congestion. No infiltrate or pleural effusion. IMPRESSION: Placement of pacemaker. No acute change of the chest.
--- NOTE | 2017-08-18 20:39 | RADIOLOGY REPORT ---
EXAMINATION: CR ABDOMEN/INTRAOPERATIVE FLUOROSCOPY CLINICAL INDICATION: Left-sided pacemaker. COMPARISON: Chest x-ray dated 08/18/2017. TECHNIQUE/FINDINGS: Fluoroscopic equipment was dedicated to the operating room for the performance of an intraoperative procedure. Several (19) spot films were acquired and are archived in PACS. Please refer to operative notes for procedural detail. FLUOROSCOPY TIME: 3.06 minutes. IMPRESSION: Administrative dictation for intraoperative fluoroscopy and image archiving in PACS. Please refer to operative notes for details.
[2017-08-18 22:59] VITALS: BP 118/70
[2017-08-19] VITALS (8 sets, daily range): BP systolic 88–140; BP diastolic 58–86
--- NOTE | 2017-08-19 01:40 | Event Note ---
Event Note Event Note: Patient complaining of Pounding sensation in the chest. she had the Pacemaker placed today for Symptomatic Bradycardia. Vitals stable, Troponin was elevated to 0.12 but EKG did not show any ST-T wave changes. Dr. Lux was called who recommended reassuring the patient as the troponin is likely demand Ischemia. Patient later started complaining about left arm pain, troponin and EKG were repeated (which were negative) and patient was given 1 dose of sublingual nitroglycerin 0.4 mg which dropped her blood pressure down to 68 over Doppler. Patient was put in Trendelenburg position and was given 500 mL bolus of normal saline, repeat blood pressure was 116/80. Patient was given IV tylenol for left arm pain. PM interogation was also requested. Dr. Lux was made aware of the above event and said he will see the patient early in the morning.
--- NOTE | 2017-08-19 07:19 | PN- Housestaff ---
Bryce HO,[facility] 08/19/17 0719: Subjective Follow-up For: asthma chest pain symptomatic bradycardia status post pacemaker Tele-Events Since Last Visit: Single/dual-pacing HR 69-71 QRS 0.08 RI 0.14 Subjective: Patient had pacemaker placed last night. Had pain palpitations last night. Troponins were elevated at 0.12. Dr. Lux was contacted who stated her events were due to pacemaker placement. The patient also hypotensive to 68/0 after nitroglycerin was given for her chest pain. Blood pressure resumed to normal after IV fluid bolus. This morning the chest x-ray showed movement of the right atrial lead. The patient states that she did okay overnight. States that she is not having pain. Continues to have some palpitations. No other complaints. Lying in bed comfortably. Review of Systems Constitutional: Reports: see HPI. Cardiovascular: Reports: chest pain, palpitations. Respiratory: Reports: no symptoms. Gastrointestinal: Reports: no symptoms. Genitourinary: Reports: no symptoms. Musculoskeletal: Reports: no symptoms. Objective Last 24 Hrs of Vital Signs/I&O Vital Signs Date Time Temp Pulse Resp B/P B/P Pulse O2 O2 Flow FiO2 Mean Ox Delivery Rate 08/19 1356 95 Room Air 08/19 1247 69 120/80 08/19 0800 Nasal 2.0L Cannula 08/19 0653 97.5 69 20 120/80 98 Nasal 2.0L Cannula 08/19 0349 69 116/80 08/19 0300 70 120/80 08/19 0245 69 88/58 08/19 0215 69 88/58 08/19 0150 140/80 08/18 2259 98.1 69 19 118/70 98 Intake & Output 08/19 1600 08/19 0800 08/19 0000 Intake Total 700 200 Output Total Balance 700 200 Intake, IV 600 Intake, Oral 100 200 Patient 208 lb Weight Weight Bed scale Measurement Method Physical Exam General Appearance: Alert, Oriented X3, Cooperative, No Acute Distress Skin: left bandage on top of pacemaker placement site with small amounts of dried blood Cardiovascular: Regular Rate, Normal S1, Normal S2 Lungs: Clear to Auscultation, Normal Air Movement Abdomen: Soft, No Tenderness, decreased bowel sounds Extremities: trace lower extremity edema Vascular: 2+ radial pulses Current Medications: Current Medications Sig/Jan Start time Last Medication Dose Route Stop Time Status Admin Acetaminophen 1,000 MG ONCE ONE 08/19 0245 DC 08/19 N/A 1 UNIT IV 08/19 0259 0307 Acetaminophen 650 MG Q8P PRN 08/12 2245 AC 08/14 PO 2206 Acetaminophen/ 1 TAB Q4P PRN 08/14 1130 AC 08/15 Butalbital/Caffeine PO 1350 Albuterol Sulfate 3 ML Q4P PRN 08/14 1500 AC INH Atorvastatin Calcium 10 MG DAILY 08/13 1000 AC 08/19 PO 1248 Budesonide/ 2 PUF BID 08/13 1306 AC 08/19 Formoterol Fumarate INH 1250 Cephalexin 500 MG BID 08/18 2200 DC 08/19 PO 08/19 1001 1248 Dextrose/Sodium 1,000 ML Q20H 08/20 0000 AC Chloride IV Dextrose/Sodium 1,000 ML Q20H 08/19 1030 DC Chloride IV Duloxetine HCl 20 MG DAILY 08/13 1000 AC 08/19 PO 1247 Fluticasone 2 SPRAY DAILY 08/13 1000 AC 08/19 Propionate SALEEM 1248 Gabapentin 300 MG TID 08/13 1000 AC 08/19 PO 1248 Guaifenesin 10 ML Q4P PRN 08/14 0400 AC 08/14 PO 2206 Guaifenesin 600 MG Q12 08/13 1000 AC 08/19 PO 1248 Heparin Sodium 5,000 UNIT Q8 08/19 0600 AC 08/19 (Porcine) SC 0604 Heparin Sodium 5,000 UNIT Q8 08/12 2200 DC 08/18 (Porcine) SC 0600 Hydrochlorothiazide 12.5 MG DAILY 08/13 1000 AC 08/19 PO 1248 Insulin Aspart 0 TIDAC 08/19 1200 AC 08/19 SC 08/19 2355 1251 Insulin Aspart 0 TIDAC 08/17 1700 DC 08/17 SC 1616 Insulin Human Regular 0 Q6 08/20 0000 AC SC Insulin Human Regular 0 Q6 08/19 1200 CAN SC Ipratropium [place] 2.5 ML Q4 HRS NEEDED PRN 08/17 2030 AC INH Ketorolac 15 MG ONE ONE 08/18 2100 DC 08/18 Tromethamine IM 08/18 2101 2101 Losartan Potassium 50 MG DAILY 08/14 1000 AC 08/19 PO 1247 Melatonin 5 MG QPM 08/13 2200 AC 08/18 PO 2237 Morphine Sulfate 4 MG .STK-MED ONE 08/18 1910 DC IM 08/18 1911 Morphine Sulfate 4 MG .STK-MED ONE 08/18 1844 DC IM 08/18 1845 Morphine Sulfate 4 MG .STK-MED ONE 08/18 1823 DC IM 08/18 1824 Morphine Sulfate 4 MG .STK-MED ONE 08/18 1756 DC IM 08/18 1757 Nitroglycerin 0.4 MG ONCE ONE 08/19 0145 DC 08/19 SL 08/19 0146 0154 Omeprazole 40 MG 1/2H B/BREAKF/DINNER 08/13 1630 AC 08/19 PO 0604 Oxycodone/ 1 TAB ONCE ONE 08/19 0630 DC 08/19 Acetaminophen PO 08/19 0631 0622 Polyethylene Glycol 17 GM DAILY 08/15 1646 AC 08/19 PO 1249 Prednisone 30 MG DAILY 08/17 1000 AC 08/19 PO 08/24 0959 1250 Senna 187 MG AT BEDTIME 08/15 2200 AC 08/18 PO 2237 Sodium Chloride 500 ML BOLUS ONE 08/19 0230 DC 08/19 IV 08/19 0329 0231 Sodium Chloride 2 SPRAY Q4P PRN 08/12 2245 AC SALEEM Last 24 Hrs of Lab/Mariusz Results Last 24 Hrs of Labs/Mics: Laboratory Tests 08/19/17 0628: Troponin I 0.08, Hepatitis A IgM Ab NONREACTIVE, Hep Bs Antigen NONREACTIVE, Hep B Core IgM Ab Conf NONREACTIVE, Hepatitis C Antibody NONREACTIVE 08/19/17 0205: Troponin I 0.12 *H Assessment/Plan Assessment: Ms. Thomason is a 71 year old female with past medical history significant for asthma, diabetes, HTN, HLD, and bradycardia presented with complaints of wheezing and dyspnea. Chest pain * Serial trop/ECG negative for ACS * Echo: lvef >65% with stage 2 diastolic dysfunction * Cardio recommendations appreciated * Patient family reports pt has knee surgery in September and need cardiac clearance by 08/26/17 if our cloth stock sorter can clear her because she missed her appt today with Dr. Denise Mattson Asthma exacerbation * eosinophils elevated on cbc, h/o atopy and aspirin allergy * Pulmology consultation, appreciate recommendations * Continue prednisone taper * Nocturnal pulse oximetry * symbicort 160 bid * prn nebs * cont prednisone taper * upon discharge: give steroid inhaler and pulmnology f/u Bradycardia s/p pacemaker 08/18/17: CXR revealed RA lead movement/displacement. Patient will be NPO tonight for RA lead revision tomorrow. * Cardiology consulted, appreciate recommendations * Patient's status post pacemaker placement as stated above. * May benefit from outpatient nuclear stress test * TSH/T4 wnl * [place] titer negative DM: * Accuchecks TIDAC/HS * Novolog sliding scale HTN: * Continue HCTZ * Lisinopril discontinued * Continue losartan HLD: * Continue statin therapy Morbid obesity Class III-history of gastric bypass * PO PPI BID. will need to continue during discharge * Diabetic diet DVT ppx - heparin subq DNR/DNI Problem List: 1. Bradycardia 2. Asthma exacerbation 3. Pacemaker Pain Ratin Pain Location: chest Pain Goal: Pain 4 or less Pain Plan: pain pathway Tomorrow's Labs & Rationales: cbc bep Cat [place] 08/19/17 1411: Attending MD Review Statement Attending Statement Attending MD Statement: examined this patient, discuss w/resident/PA/PSYCHOLOGY ASSISTANT, agreed w/resident/PA/PSYCHOLOGY ASSISTANT, discussed with family, reviewed EMR data (avail), discussed with nursing, discussed with case mgmt Attending Assessment/Plan: Pt had PPM placement yesterday evening. Repeat cxr shows some displacement of the lead , d/w cardiology. Pt will be going for revision of lead placement tomorrow. Will make her NPO past midnight for procedure tomorrow. d/w pt and pts family at bedside the care plan. Asthma exac- on pred taper,on 30mg now.
--- NOTE | 2017-08-19 09:30 | RADIOLOGY REPORT ---
EXAMINATION: XR PORTABLE CHEST CLINICAL INFORMATION: Status post pacemaker placement. Concern for lead displacement COMPARISON: 08/18/2017 TECHNIQUE: Portable frontal view of the chest was obtained. FINDINGS: Lung volumes are low, decreased from the prior study. The film also appears to be in a lordotic projection despite being 80 degree upright. Again seen is a left subclavian approach 2-lead pacemaker. There is a slightly different course of the right atrial lead, which extends further lateral from the midline overlying the right heart border than it did on the film done yesterday. The other lead continues to project over the expected location of the right ventricular apex. No pleural effusion or pneumothorax. Bronchovascular crowding but no diana pulmonary edema. No focal consolidation. Normal cardiomediastinal silhouette for technique. IMPRESSION: Again seen is a left subclavian approach 2-lead pacemaker. There is a slightly different course of the right atrial lead, which extends further lateral from the midline overlying the right heart border than it did on the film done yesterday. Consider correlation with pacemaker interrogation. The other lead continues to project over the expected location of the right ventricular apex.
--- NOTE | 2017-08-19 19:01 | PN- Cardiology ---
Subjective Subjective: No complaints. Postoperative day #1 implantation of permanent pacemaker for symptomatic bradycardia. CXR performed earlier suggested change of position and atrial lead. Objective Vital Signs and I&Os Vital Signs Date Time Temp Pulse Resp B/P B/P Pulse O2 O2 Flow FiO2 Mean Ox Delivery Rate 08/19 1523 98.0 60 14 124/64 98 Nasal 2.0L Cannula 08/19 1356 95 Room Air 08/19 1247 69 120/80 08/19 0800 Nasal 2.0L Cannula 08/19 0653 97.5 69 20 120/80 98 Nasal 2.0L Cannula 08/19 0349 69 116/80 08/19 0300 70 120/80 08/19 0245 69 88/58 08/19 0215 69 88/58 08/19 0150 140/80 08/18 2259 98.1 69 19 118/70 98 Intake & Output 08/19 1600 08/19 0800 08/19 0000 08/18 1600 08/18 0800 08/18 0000 Intake Total 240 700 200 200 240 150 Output Total Balance 240 700 200 200 240 150 Intake, IV 600 Intake, Oral 240 100 200 200 240 150 Patient 208 lb 203 lb Weight Weight Bed scale Measurement Method Physical Exam: Well-developed, overweight elderly female in no acute distress with nasal oxygen in place. Vital signs: See above. Neck: No JVD, no bruits. Lungs: Clear to auscultation. Heart: S1, S2 no murmur, gallop, or rub. Excellent abdomen: Soft, nontender, positive bowel sounds. Extremities no edema. Pacemaker site clean and dry. Current Medications: Current Medications Sig/Jan Start time Last Medication Dose Route Stop Time Status Admin Acetaminophen 1,000 MG ONCE ONE 08/19 0245 DC 08/19 N/A 1 UNIT IV 08/19 0259 0307 Acetaminophen 650 MG Q8P PRN 08/12 2245 AC 08/14 PO 2206 Acetaminophen/ 1 TAB Q4P PRN 08/14 1130 AC 08/15 Butalbital/Caffeine PO 1350 Albuterol Sulfate 3 ML Q4P PRN 08/14 1500 AC INH Atorvastatin Calcium 10 MG DAILY 08/13 1000 AC 08/19 PO 1248 Budesonide/ 2 PUF BID 08/13 1306 AC 08/19 Formoterol Fumarate INH 1250 Cephalexin 500 MG BID 08/18 2200 DC 08/19 PO 08/19 1001 1248 Dextrose/Sodium 1,000 ML Q20H 08/20 0000 AC Chloride IV Dextrose/Sodium 1,000 ML Q20H 08/19 1030 DC Chloride IV Duloxetine HCl 20 MG DAILY 08/13 1000 AC 08/19 PO 1247 Fluticasone 2 SPRAY DAILY 08/13 1000 AC 08/19 Propionate SALEEM 1248 Gabapentin 300 MG TID 08/13 1000 AC 08/19 PO 1600 Guaifenesin 10 ML Q4P PRN 08/14 0400 AC 08/14 PO 2206 Guaifenesin 600 MG Q12 08/13 1000 AC 08/19 PO 1248 Heparin Sodium 5,000 UNIT Q8 08/19 0600 AC 08/19 (Porcine) SC 08/20 0000 1400 Hydrochlorothiazide 12.5 MG DAILY 08/13 1000 AC 08/19 PO 1248 Insulin Aspart 0 TIDAC 08/19 1200 AC 08/19 SC 08/19 2355 1735 Insulin Aspart 0 TIDAC 08/17 1700 DC 08/17 SC 1616 Insulin Human Regular 0 Q6 08/20 0000 AC SC Insulin Human Regular 0 Q6 08/19 1200 CAN SC Ipratropium [place] 2.5 ML Q4 HRS NEEDED PRN 08/17 2030 AC INH Ketorolac 15 MG ONE ONE 08/18 2100 DC 08/18 Tromethamine IM 08/18 2101 2101 Losartan Potassium 50 MG DAILY 08/14 1000 AC 08/19 PO 1247 Melatonin 5 MG QPM 08/13 2200 AC 08/18 PO 2237 Morphine Sulfate 4 MG .STK-MED ONE 08/18 1910 DC IM 08/18 1911 Nitroglycerin 0.4 MG ONCE ONE 08/19 0145 DC 08/19 SL 08/19 0146 0154 Omeprazole 40 MG 1/2H B/BREAKF/DINNER 08/13 1630 AC 08/19 PO 1735 Oxycodone/ 1 TAB ONCE ONE 08/19 0630 DC 08/19 Acetaminophen PO 08/19 0631 0622 Polyethylene Glycol 17 GM DAILY 08/15 1646 AC 08/19 PO 1249 Prednisone 30 MG DAILY 08/17 1000 AC 08/19 PO 08/24 0959 1250 Senna 187 MG AT BEDTIME 08/15 2200 AC 08/18 PO 2237 Sodium Chloride 500 ML BOLUS ONE 08/19 0230 DC 08/19 IV 08/19 0329 0231 Sodium Chloride 2 SPRAY Q4P PRN 08/12 2245 AC SALEEM Results Last 48 Hrs of Labs/Mics: Laboratory Tests 08/19/17 0628: Troponin I 0.08, Hepatitis A IgM Ab NONREACTIVE, Hep Bs Antigen NONREACTIVE, Hep B Core IgM Ab Conf NONREACTIVE, Hepatitis C Antibody NONREACTIVE 08/19/17 0205: Troponin I 0.12 *H 08/18/17 1350: PT 10.2, INR 0.94, APTT 32 08/18/17 0624: Anion Gap 6, Estimated GFR > 60, BUN/Creatinine Ratio 37.5 H, CBC w Diff NO MAN DIFF REQ, RBC 3.88 L, MCV 88.1, MCH 28.8, MCHC 32.7 L, RDW 14.6 H, MPV 10.1, Gran % 62.0, Lymphocytes % 31.3, Monocytes % 5.8, Eosinophils % 0.7, Basophils % 0.2, Absolute Granulocytes 6.1, Absolute Lymphocytes 3.1, Absolute Monocytes 0.6 , Absolute Eosinophils 0.1, Absolute Basophils 0 Recent Imaging Studies: CXR 08/19/2017: Again seen is a left subclavian approach 2-lead pacemaker. There is a slightly different course of the right atrial lead, which extends further lateral from the midline overlying the right heart border than it did on the film done yesterday. Consider correlation with pacemaker interrogation. The other lead continues to project over the expected location of the right ventricular apex. ECG 08/19/2017: Ventricular paced rhythm. Assessment/Plan Assessment/Plan [id number] w/ hx HTN, HLD, DM, previous syncope, bradycardia of uncertain etiology, and asthma with previous exacerbations who presented to the ED on 08/12/2017 w/ c/o SOB, wheezing, intermittent chills, and a nonproductive cough for the prior 24 hours and who is being maintained on telemetry for sinus bradycardia. Heart rates during waking hours typically 40-50s with dips down to the 30s during sleep. Brought down to cardiology for planned dobutamine stress test, but heart rate was 40 bpm and she has been having intermittent dizziness/lightheadedness. With symptomatic bradycardia decision made to proceed with permanent dual- chamber pacemaker which was placed on 08/18/2017, but ECG from 08/18/20172040 revealed pacemaker spikes without appropriate P waves and/or QRS complexes, CXR from earlier showed change in position of atrial lead, and pacemaker interrogation revealing atrial lead malfunction. The plan is for revision of atrial lead in a.m. Continue telemetry? Yes
--- NOTE | 2017-08-19 22:14 | PN- Cardiology ---
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 Her chest X-ray shows that the atrial lead may have drifted into the SVC. It appears to be positional. At present the patient feels well. Objective Vital Signs and I&Os Vital Signs Date Time Temp Pulse Resp B/P B/P Pulse O2 O2 Flow FiO2 Mean Ox Delivery Rate 08/19 1523 98.0 60 14 124/64 98 Nasal 2.0L Cannula 08/19 1356 95 Room Air 08/19 1247 69 120/80 08/19 0800 Nasal 2.0L Cannula 08/19 0653 97.5 69 20 120/80 98 Nasal 2.0L Cannula 08/19 0349 69 116/80 08/19 0300 70 120/80 08/19 0245 69 88/58 08/19 0215 69 88/58 08/19 0150 140/80 08/18 2259 98.1 69 19 118/70 98 Intake & Output 08/19 1600 08/19 0800 08/19 0000 08/18 1600 08/18 0800 08/18 0000 Intake Total 540 700 200 200 240 150 Output Total 500 Balance 40 700 200 200 240 150 Intake, IV 600 Intake, Oral 540 100 200 200 240 150 Output, Urine 500 Patient 208 lb 203 lb Weight Weight Bed scale Measurement Method Physical Exam: General: WD/overweight female in NAD; alert and oriented x 3 Neck: no JVD Chest: no hematoma Lungs: clear bilaterally heart: RRR Extremities: no edema Assessment/Plan Assessment/Plan * The patient's atrial lead has drifted out of the atrial appendage and appears to be in the SVC. It is positional and at present is pacing and sensing well without stimulating the skeletal muscle but we will nonetheless take her back to the OR tomorrow to find a more stable position of this tined lead. Keep NPO except for medications after midnight. Continue telemetry? Yes
[2017-08-20 08:22] LABS: ABSOLUTE BASOPHIL COUNT 0 /CUMM (0.0-0.2); ABSOLUTE EOSINOPHIL COUNT 0 /CUMM (0.0-0.7); ABSOLUTE GRANULOCYTE CT 8.2 /CUMM (1.4-6.5); ABSOLUTE LYMPH COUNT 3.1 /CUMM (1.2-3.4); ABSOLUTE MONOCYTE COUNT 0.9 /CUMM (0.10-0.60); BASOPHIL % 0.2 % (0.0-2.0); EOSINOPHIL % 0.3 % (0-5); GRANULOCYTE % 67.1 % (42.2-75.2); HEMATOCRIT 38.4 % (37-47); MEAN CORPUSCULAR HGB 28.5 PG (27.0-31.0); MEAN CORPUSCULAR HGB CONC 32.3 G/DL (33.0-37.0); MEAN PLATELET VOLUME 9.9 FL (7.4-10.4); PLATELET COUNT 241 /CUMM (130-400); RBC DISTRIBUTION WIDTH 14.6 % (11.5-14.5); RED BLOOD CELL CT 4.37 /CUMM (4.20-5.40); WHITE BLOOD CELL COUNT 12.2 /CUMM (4.8-10.8)
--- NOTE | 2017-08-20 08:33 | PN- Housestaff ---
Bryce HO,[facility] 08/20/17 0832: Subjective Follow-up For: asthma chest pain symptomatic bradycardia status post pacemaker Tele-Events Since Last Visit: S-pacing Hr 59-60 QRS .14 - .16 Subjective: No acute events overnight. States she has no pain. Still has some palpitations. Review of Systems Constitutional: Reports: see HPI. Cardiovascular: Reports: palpitations. Objective Last 24 Hrs of Vital Signs/I&O Vital Signs Date Time Temp Pulse Resp B/P B/P Pulse O2 O2 Flow FiO2 Mean Ox Delivery Rate 08/20 1139 97 Room Air Room Air 08/20 0943 60 120/72 08/20 0000 Nasal 2.0L Cannula 08/19 2244 98.0 60 18 128/86 94 Intake & Output 08/20 1600 08/20 0800 08/20 0000 Intake Total 400 200 Output Total 400 Balance 400 -200 Intake, IV 400 Intake, Oral 200 Output, Urine 400 Patient 205 lb Weight Physical Exam General Appearance: Alert, Oriented X3, Cooperative, No Acute Distress Cardiovascular: Regular Rate, Normal S1, Normal S2, tenderness of PCM placement site Lungs: Clear to Auscultation, Normal Air Movement Abdomen: Normal Bowel Sounds, Soft, No Tenderness Extremities: trace LE edema Vascular: 2+ radial pulses Current Medications: Current Medications Sig/Jan Start time Last Medication Dose Route Stop Time Status Admin Acetaminophen 650 MG Q8P PRN 08/12 2245 AC 08/14 PO 2206 Acetaminophen/ 1 TAB Q4P PRN 08/14 1130 AC 08/20 Butalbital/Caffeine PO 0611 Albuterol Sulfate 3 ML Q4P PRN 08/14 1500 DC INH Atorvastatin Calcium 10 MG DAILY 08/13 1000 AC 08/20 PO 0944 Budesonide/ 2 PUF BID 08/13 1306 AC 08/20 Formoterol Fumarate INH 0944 Cephalexin 500 MG BID 08/20 2200 AC PO 08/21 1001 Dextrose/Sodium 1,000 ML Q20H 08/20 0000 AC 08/19 Chloride IV 2334 Duloxetine HCl 20 MG DAILY 08/13 1000 AC 08/20 PO 0943 Fluticasone 2 SPRAY DAILY 08/13 1000 AC 08/19 Propionate SALEEM 1248 Gabapentin 300 MG TID 08/13 1000 AC 08/20 PO 0944 Guaifenesin 10 ML Q4P PRN 08/14 0400 AC 08/14 PO 2206 Guaifenesin 600 MG Q12 08/13 1000 AC 08/20 PO 0944 Heparin Sodium 5,000 UNIT Q8 08/19 0600 DC 08/19 (Porcine) SC 08/20 0000 205 Hydrochlorothiazide 12.5 MG DAILY 08/13 1000 AC 08/20 PO 0943 Insulin Aspart 0 TIDAC 08/19 1200 DC 08/19 SC 08/19 2355 1735 Insulin Human Regular 0 Q6 08/20 0000 AC 08/20 SC 0603 Ipratropium [place] 2.5 ML Q4 HRS NEEDED PRN 08/17 2030 CAN INH Losartan Potassium 50 MG DAILY 08/14 1000 AC 08/20 PO 0943 Melatonin 5 MG QPM 08/13 2200 AC 08/19 PO 2051 Omeprazole 40 MG 1/2H B/BREAKF/DINNER 08/13 1630 AC 08/20 PO 0603 Polyethylene Glycol 17 GM DAILY 08/15 1646 AC 08/19 PO 1249 Prednisone 30 MG DAILY 08/17 1000 AC 08/20 PO 08/24 0959 0944 Senna 187 MG AT BEDTIME 08/15 2200 AC 08/19 PO 2057 Sodium Chloride 2 SPRAY Q4P PRN 08/12 2245 AC SALEEM Last 24 Hrs of Lab/Mariusz Results Last 24 Hrs of Labs/Mics: Laboratory Tests 08/20/17 0638: Anion Gap 7, Estimated GFR > 60, BUN/Creatinine Ratio 30.0 H, CBC w Diff NO MAN DIFF REQ, RBC 4.37, MCV 88.0, MCH 28.5, MCHC 32.3 L, RDW 14.6 H, MPV 9.9, Gran % 67.1, Lymphocytes % 25.1, Monocytes % 7.3, Eosinophils % 0.3, Basophils % 0.2, Absolute Granulocytes 8.2 H, Absolute Lymphocytes 3.1, Absolute Monocytes 0.9 H, Absolute Eosinophils 0, Absolute Basophils 0 Assessment/Plan Assessment: Ms. Thomason is a 71 year old female with past medical history significant for asthma, diabetes, HTN, HLD, and bradycardia presented with complaints of wheezing and dyspnea. Chest pain * Serial trop/ECG negative for ACS * Echo: lvef >65% with stage 2 diastolic dysfunction * Cardio recommendations appreciated * Will need f/u with Dr. Mckinney after dc for clearance for surgery Asthma exacerbation * eosinophils elevated on cbc, h/o atopy and aspirin allergy * Pulmology consultation, appreciate recommendations * Continue prednisone taper * Nocturnal pulse oximetry * symbicort 160 bid * prn nebs * cont prednisone taper * upon discharge: give steroid inhaler and pulmnology f/u Bradycardia s/p pacemaker 08/18/17: CXR revealed RA lead movement/displacement. Patient get RA lead revision today. Patient will have sitter to minimize L arm movement. * Cardiology consulted, appreciate recommendations * Patient's status post pacemaker placement as stated above. * May benefit from outpatient nuclear stress test * TSH/T4 wnl * Lyme titer negative DM: * Accuchecks TIDAC/HS * Novolog sliding scale HTN: * Continue HCTZ * Lisinopril discontinued * Continue losartan HLD: * Continue statin therapy Morbid obesity Class III-history of gastric bypass * PO PPI BID. will need to continue during discharge * Diabetic diet DVT ppx - heparin subq DNR/DNI Problem List: 1. Pacemaker 2. Bradycardia 3. Asthma exacerbation Pain Ratin Pain Location: none Pain Goal: Pain 4 or less Pain Plan: pain pathway Tomorrow's Labs & Rationales: cbc bep Navneet Garcia 08/20/17 1419: Attending MD Review Statement Attending Statement Attending MD Statement: examined this patient, discuss w/resident/PA/SENIOR RESEARCH ANALYST, agreed w/resident/PA/SENIOR RESEARCH ANALYST, reviewed EMR data (avail), discussed with nursing, discussed with case mgmt Attending Assessment/Plan: Pt going today afternoon for lead repositioning for her PPM which was placed this admission. Possible dc tomorrow if doing ok. d/w pt the care plan.
[2017-08-20] MEDS ORDERED: SYMBICORT 16010.2 GM INH (13:31)
[2017-08-20] MEDS ORDERED: PREDNISONE10 M2 PO (13:31)
[2017-08-20] MEDS ORDERED: HYDROCHLOROTH12.5 M3 PO (13:33)
--- NOTE | 2017-08-20 15:27 | RADIOLOGY REPORT ---
EXAMINATION:\H\ \N\XR CHEST, C-arm imaging CLINICAL INFORMATION: Pacemaker lead revision COMPARISON: Chest x-ray 10/19/2017 TECHNIQUE: C-arm images performed over the chest. Fluoroscopy time: 2.8 minutes. Dose: 42.0 mGy Images: 2 FINDINGS: There is a pacemaker lead in the right atrium and right ventricle. The right atrial lead appears to be repositioned relative to the prior chest x-ray of 08/19/2017. IMPRESSION: Status post pacemaker lead revision.
--- NOTE | 2017-08-20 15:45 | RADIOLOGY REPORT ---
EXAMINATION: XR PORTABLE CHEST CLINICAL INFORMATION: Status post reconnection of wire of pacemaker. COMPARISON: 08/19/2017 TECHNIQUE: Portable frontal view of the chest was obtained. FINDINGS: Lungs are symmetrically expanded and clear. No pulmonary edema, pneumothorax or pleural effusion. Cardiac silhouette is chronically, mildly enlarged. The right atrial lead appears to have been repositioned. The right ventricular lead remains unchanged and overlies the expected region of the ventricular apex. The visualized bones are intact. IMPRESSION: The dual-chamber cardiac pacing leads are in their expected positions.
[2017-08-20 16:22] VITALS: BP 116/60
[2017-08-20 23:11] VITALS: BP 122/62
[2017-08-21 06:39] VITALS: BP 118/62
--- NOTE | 2017-08-21 08:52 | PN- Housestaff ---
See Addendum Subjective Follow-up For: asthma chest pain symptomatic bradycardia status post pacemaker Subjective: Patient was seen and examined this morning, has left arm sling to limit movement , reported pain in right shoulder, no chest pain or SOB. no overnight events, vital signs are stable. Patient can be discharged once cleared by cardiology. Review of Systems Constitutional: Reports: see HPI. Objective Last 24 Hrs of Vital Signs/I&O Vital Signs Date Time Temp Pulse Resp B/P B/P Pulse O2 O2 Flow FiO2 Mean Ox Delivery Rate 08/21 0639 98.1 59 20 118/62 95 / 2311 97.8 61 16 122/62 94 Room Air 08/20 1622 97.7 61 18 116/60 98 Room Air 08/20 1139 97 Room Air Room Air 08/20 0943 60 120/72 Intake & Output 08/21 1600 08/21 0800 08/21 0000 Intake Total Output Total Balance Patient 86.324 kg Weight Physical Exam General Appearance: Alert, Oriented X3, Cooperative, No Acute Distress Skin: No Rashes Skin Temp/Moisture Exam: Warm/Dry HEENT: Atraumatic, PERRLA, EOMI Neck: Supple Cardiovascular: Regular Rate, Normal S1, Normal S2, No Murmurs Lungs: Clear to Auscultation, Normal Air Movement Abdomen: Normal Bowel Sounds, Soft, No Tenderness Neurological: Normal Speech, Strength at 5/5 X4 Ext, Normal Tone Extremities: No Clubbing, No Cyanosis, No Edema, Normal Pulses Assessment/Plan Assessment: Ms. Thomason is a 71 year old female with past medical history significant for asthma, diabetes, HTN, HLD, and bradycardia presented with complaints of wheezing and dyspnea. Chest pain * Serial trop/ECG negative for ACS * Echo: lvef >65% with stage 2 diastolic dysfunction * Cardio recommendations appreciated * Will need f/u with Dr. Mckinney after dc for clearance for surgery Asthma exacerbation * eosinophils elevated on cbc, h/o atopy and aspirin allergy * Pulmology consultation, appreciate recommendations * Continue prednisone taper * Nocturnal pulse oximetry * symbicort 160 bid * prn nebs * cont prednisone taper * upon discharge: give steroid inhaler and pulmnology f/u Bradycardia s/p pacemaker 08/18/17: CXR revealed RA lead movement/displacement. Patient got RA lead revision yesterday. Patient will have sitter to minimize L arm movement. * Cardiology consulted, appreciate recommendations * Patient's status post pacemaker placement as stated above. * May benefit from outpatient nuclear stress test * TSH/T4 wnl * Lyme titer negative DM: * Accuchecks TIDAC/HS * Novolog sliding scale HTN: * Continue HCTZ * Lisinopril discontinued * Continue losartan HLD: * Continue statin therapy Morbid obesity Class III-history of gastric bypass * PO PPI BID. will need to continue during discharge * Diabetic diet DVT ppx - heparin subq DNR/DNI Problem List: 1. Bradycardia 2. Pacemaker 3. Asthma exacerbation Pain Ratin Pain Location: n/a Pain Goal: Pain 4 or less Pain Plan: see medication Tomorrow's Labs & Rationales: CBC, BMP
[2017-08-21 09:23] LABS: ABSOLUTE BASOPHIL COUNT 0 /CUMM (0.0-0.2); ABSOLUTE EOSINOPHIL COUNT 0.1 /CUMM (0.0-0.7); ABSOLUTE GRANULOCYTE CT 6.5 /CUMM (1.4-6.5); ABSOLUTE LYMPH COUNT 3.6 /CUMM (1.2-3.4); ABSOLUTE MONOCYTE COUNT 0.6 /CUMM (0.10-0.60); BASOPHIL % 0.2 % (0.0-2.0); EOSINOPHIL % 1.3 % (0-5); GRANULOCYTE % 59.5 % (42.2-75.2); HEMATOCRIT 36.5 % (37-47); MEAN CORPUSCULAR HGB 28.6 PG (27.0-31.0); MEAN CORPUSCULAR HGB CONC 32.4 G/DL (33.0-37.0); MEAN CORPUSCULAR VOLUME 88.4 FL (81.0-99.0); MEAN PLATELET VOLUME 10.1 FL (7.4-10.4); PLATELET COUNT 209 /CUMM (130-400); RBC DISTRIBUTION WIDTH 15.1 % (11.5-14.5); RED BLOOD CELL CT 4.13 /CUMM (4.20-5.40); WHITE BLOOD CELL COUNT 10.9 /CUMM (4.8-10.8)
[2017-08-21 10:03] VITALS: BP 118/62
[2017-08-21] MEDS ORDERED: SYMBICORT 16010.2 GM INH ×2 (14:24→14:49)
[2017-08-21] MEDS ORDERED: LOSARTAN POTASS50 M1 PO ×2 (14:24→14:49)
[2017-08-21] MEDS ORDERED: HYDROCHLOROTH12.5 M3 PO ×2 (14:24→14:49)
[2017-08-21] MEDS ORDERED: PREDNISONE10 M2 PO ×3 (14:24→14:50)
--- NOTE | 2017-08-21 19:10 | PN- Cardiology ---
Subjective Subjective: Stable post pacemaker revision Objective Vital Signs and I&Os Vital Signs Date Time Temp Pulse Resp B/P B/P Pulse O2 O2 Flow FiO2 Mean Ox Delivery Rate 08/21 1003 98.1 59 20 118/62 08/21 0639 98.1 59 20 118/62 95 / 2311 97.8 61 16 122/62 94 Room Air Intake & Output 08/21 1600 08/21 0800 08/21 0000 08/20 1600 08/20 0800 08/20 0000 Intake Total 480 400 200 Output Total 400 Balance 480 400 -200 Intake, IV 400 Intake, Oral 480 200 Output, Urine 400 Patient 190 lb 205 lb Weight Current Medications: Current Medications Sig/Jan Start time Last Medication Dose Route Stop Time Status Admin Acetaminophen 650 MG .STK-MED ONE 08/21 0520 DC PO 08/21 0521 Acetaminophen 650 MG Q8P PRN 08/12 2245 DCD 08/21 PO 0521 Acetaminophen/ 1 TAB Q4P PRN 08/14 1130 DCD 08/20 Butalbital/Caffeine PO 1705 Atorvastatin Calcium 10 MG DAILY 08/13 1000 DCD 08/21 PO 1003 Budesonide/ 2 PUF BID 08/13 1306 DCD 08/21 Formoterol Fumarate INH 1004 Cephalexin 500 MG BID 08/20 2200 DC 08/21 PO 08/21 1001 1003 Duloxetine HCl 20 MG DAILY 08/13 1000 DCD 08/21 PO 1003 Fluticasone 2 SPRAY DAILY 08/13 1000 DCD 08/21 Propionate SALEEM 1008 Gabapentin 300 MG TID 08/13 1000 DCD 08/21 PO 1003 Guaifenesin 10 ML Q4P PRN 08/14 0400 DCD 08/14 PO 2206 Guaifenesin 600 MG Q12 08/13 1000 DCD 08/21 PO 1003 Heparin Sodium 5,000 UNIT Q8 08/20 2200 DCD 08/21 (Porcine) SC 0521 Hydrochlorothiazide 12.5 MG DAILY 08/13 1000 DCD 08/21 PO 1003 Insulin Aspart 0 TIDAC 08/20 1700 DCD 08/21 SC 1257 Losartan Potassium 50 MG DAILY 08/14 1000 DCD 08/21 PO 1003 Melatonin 5 MG QPM 08/13 2200 DCD 08/20 PO 2139 Omeprazole 40 MG 1/2H B/BREAKF/DINNER 08/13 1630 DCD 08/21 PO 0522 Polyethylene Glycol 17 GM DAILY 08/15 1646 DCD 08/21 PO 1004 Prednisone 10 MG DAILY 08/23 1000 DCD PO 08/23 1001 Prednisone 20 MG DAILY 08/22 1000 DCD PO 08/22 1001 Prednisone 20 MG DAILY 08/17 1000 DC 08/21 PO 08/24 0959 1003 Senna 187 MG AT BEDTIME 08/15 2200 DCD 08/20 PO 2139 Sodium Chloride 2 SPRAY Q4P PRN 08/12 2245 DCD SALEEM Tramadol HCl 50 MG Q6 PRN 08/21 1015 DCD 08/21 PO 1017 Results Last 48 Hrs of Labs/Mics: Laboratory Tests 08/21/17 0617: Anion Gap 8, Estimated GFR > 60, BUN/Creatinine Ratio 26.3 H, CBC w Diff NO MAN DIFF REQ, RBC 4.13 L, MCV 88.4, MCH 28.6, MCHC 32.4 L, RDW 15.1 H, MPV 10.1, Gran % 59.5, Lymphocytes % 33.1, Monocytes % 5.9, Eosinophils % 1.3, Basophils % 0.2, Absolute Granulocytes 6.5, Absolute Lymphocytes 3.6 H, Absolute Monocytes 0.6, Absolute Eosinophils 0.1, Absolute Basophils 0 08/20/17 0638: Anion Gap 7, Estimated GFR > 60, BUN/Creatinine Ratio 30.0 H, CBC w Diff NO MAN DIFF REQ, RBC 4.37, MCV 88.0, MCH 28.5, MCHC 32.3 L, RDW 14.6 H, MPV 9.9, Gran % 67.1, Lymphocytes % 25.1, Monocytes % 7.3, Eosinophils % 0.3, Basophils % 0.2, Absolute Granulocytes 8.2 H, Absolute Lymphocytes 3.1, Absolute Monocytes 0.9 H, Absolute Eosinophils 0, Absolute Basophils 0 Assessment/Plan Assessment/Plan Assessment: 1. Pacemaker post revision Recommendations: - Stable for discharge today from CV standpoint - Outpatient followup with Bernice Lux and [facility] next week Continue telemetry? No
--- NOTE | 2017-08-23 11:45 | Proc Note Cardiology ---
Cardiology Procedure Procedure Date: 08/18/17 Cardiology Procedure(s): [employer] Dual Chamber MRI safe permanent pacemaker Pre-Operative Diagnosis: sick sinus syndrome Post-Operative Diagnosis: sick sinus syndrome Estimated Blood Loss: scant Anesthesia: moderate sedation (with local) Procedure Findings: History: This patient is a 71 year old female with history of hypertension, dyslipidemia and diabetes who has symptomatic bradycardia consistent with sick sinus syndrome. Procedure: This patient was prepped and draped in the usual sterile fashion after having obtained informed consent. She was administered 1 gm of Ancef as prophylaxis against infection. An incision was then made in the left subclavicular space where a pacemaker pocket was dissected out. The left subclavian vein was then accessed via the [employer] techinique and a 7F sheath was placed in the vein. Two wires were placed and the sheath then removed and placed over a single wire with retention of the remaining wire for later use. The right ventricular lead was then placed in the right ventricular apex and pacing parameters were checked and confirmed to be good. We then removed the sheath and placed a second 7F sheath in the left subclavian vein and through this passed the lead to the right atrial appendage. Pacing parameters were again checked and confirmed to be within acceptable, or better, limits. The sheath was removed and the leads were sewn into place and the pacemaker was then placed in the pocket after attaching both leads. The pacemaker pocket was sutured closed with three layers of absorbable suture. The pacemaker was again tested and the patient was brought to recovery where a chest X-ray and 12 lead ECG were obtained. Pacemaker: Medtronic Dobson S MRI safe Pacemaker Model # W3DR01 with serial # [id number] Atrial Lead: Model # 4574 Capsure Sense Serial # [id number] Voltage: 0.5V Current: Impedance: 551 Ohms P wave: 1.1mV Ventricular Lead: Model # 5076 Serial # [id number] Voltage: 0.5V Current: Impedance: 627 Ohms R wave: 12.0 The patient tolerated this procedure well without complications.
--- NOTE | 2017-08-23 13:51 | Proc Note Cardiology ---
Cardiology Procedure Procedure Date: 08/20/17 Cardiology Procedure(s): atrial pacemaker lead revision Pre-Operative Diagnosis: unstable atrial pacemaker lead Post-Operative Diagnosis: same Estimated Blood Loss: scant Anesthesia: moderate sedation, local with lidocaine Procedure Findings: History: This patient is a 71 year old female with history of hypertension, dyslipidemia and diabetes who has symptomatic bradycardia from sick sinus syndrome. Two days ago the patient had a dual chamber permanent pacemaker placed. A pre-formed atrial tined lead was place in the left atrial appendage but after a restless night the patient was noted to have inconsistent capture. She is being brought back for lead revision. Procedure: This patient was prepped and draped in the usual sterile fashion after having obtained informed consent. Her pacemaker was exposed by cutting the skin sutures and the sutures were removed from the sheath holding the atrial lead. Using flouroscopy the lead was repositioned in the left atrial appendage and pacing parameters were rechecked and found to be excellent. The pacemaker lead was sewn down and the pacemaker pocket was reclosed using three layers of absorbable suture. The pacemaker was again tested and the patient was brought to recovery where a chest X-ray and 12 lead ECG were obtained. Pacemaker: [employer] [place] S MRI safe Pacemaker Model # [id number] with serial # [id number] Atrial Lead: Model # [id number] Serial # [id number] Voltage: 0.5V Current: 1.0mA Impedance: 649 Ohms P wave: 1.6mV Ventricular Lead: Model # 5076-58 Serial # [id number] Voltage: 0.7V Current: 1.0mA Impedance: 1322 Ohms R wave: 15.0 The patient tolerated this procedure well without complications.
== END 2017-08-21 15:12 | DRG 243 ==
LOC: ERH 15:55 → 1NO 18:48 → ERHI 18:48 → ENRESERV 20:09 → ENTRNSPT 21:55 → EDTRNSPTSTS 22:04 → 1NO 22:10 → CMPTRNSPT 22:20 → 1NO 08-13 08:32 → ENTRNSPT 08-18 19:08 → CMPTRNSPT 08-18 19:50 → ENPENDDIS 08-21 14:25 → 1NO 08-21 15:12
PROVIDERS: Emergency Medicine; Hospitalist; Internal Medicine Endocrinology, Diabetes & Metabolism
PROC: 0JH606Z Insertion of Pacemaker, Dual Chamber into Chest Subcutaneous Tissue and Fascia, Open Approach (ICD-10-PCS; principal; 2017-08-18)
PROC: 02H63JZ Insertion of Pacemaker Lead into Right Atrium, Percutaneous Approach (ICD-10-PCS; 2017-08-18)
PROC: 02HK3JZ Insertion of Pacemaker Lead into Right Ventricle, Percutaneous Approach (ICD-10-PCS; 2017-08-18)
PROC: 02WA3MZ Revision of Cardiac Lead in Heart, Percutaneous Approach (ICD-10-PCS; 2017-08-20)
DX: I49.5 Sick sinus syndrome (principal); J45.901 Unspecified asthma with (acute) exacerbation; J82 Pulmonary eosinophilia, not elsewhere classified; E66.01 Morbid (severe) obesity due to excess calories; Z68.42 Body mass index [BMI] 45.0-49.9, adult; E11.9 Type 2 diabetes mellitus without complications; I10 Essential (primary) hypertension; E78.5 Hyperlipidemia, unspecified; R07.9 Chest pain, unspecified; K21.9 Gastro-esophageal reflux disease without esophagitis; G47.33 Obstructive sleep apnea (adult) (pediatric); R00.1 Bradycardia, unspecified; Z98.84 Bariatric surgery status
CPT/HCPCS: 1NSP; 86618; 36415; 36592; 71045; 81003; 82436; 87086; 87804; 87804-59; 93005; 93010; 93306; 93970; 96374; 99291; C1785; C1898; J0131; J0690; J1644; J1815; J2920; J2930; J3490; J7042; J7060; J7512

== ENCOUNTER 2017-11-03 03:05 | Inpatient (IN) | payer OTHER, MEDICARE ==
[~2017-11-03] VITALS: Ht 144.8 cm; Wt 84.4 kg
[~2017-11-03 03:05] MED LIST changes: +ATORVASTATIN CA10 M1 PO; +CYMBALTA20 M1 PO; +GABAPENTIN300 M2 PO; +HYDROCHLOROTH12.5 M3 PO; +LOSARTAN POTASS50 M1 PO; +MELATONIN5 M7 PO; +MELOXICAM7.5 M1 PO; +NASONEX17 GM NASB; +NOVOLOG100 UNIT/2 SC; +PREDNISONE10 M2 PO; +SYMBICORT 16010.2 GM INH
--- NOTE | 2017-11-03 09:47 | Operative Report ---
Operative/Inv Procedure Report Surgery Date: 11/03/17 Name of Procedure: Left total knee arthroplasty Pre-Operative Diagnosis: Primary osteoarthritis left knee Post-Operative Diagnosis: Same Estimated Blood Loss: less than 50ml Surgeon/Meat Cutting Teacher: Aris Burch. Aury HO,Bert Moy Anesthesia: general endotracheal tube IV Fluids: See anesthesia record Implants: Hayden attune total knee system size 3 femur size 2 tibia 7 tibial insert tray and a 29 patella Drains: None Specimens: Bone Tourniquet: 62 minutes Complications: . None Condition: Stable Operative Indication: Patient 72-year-old female severe osteoarthritis of the medial compartment of the left knee. She failed conservative treatment is indicated for total knee arthroplasty. Skilled set hands assessing provided by physician carpenter assistant installer Aris Burch weighted with retraction component assembly and limb positioning throughout the case. Operative/Procedure Note Note: Once informed consent was obtained the correct was identified patient brought to room placed on table supine position. After initiation of general chicken anesthesia patient's thigh tourniquet placed and a Onofre catheter and left lower from his prepped and draped in usual sterile fashion. To begin the procedure standard midline incision made for total knee arthroscopy. A medial parapatellar arthrotomy was performed and the patella was everted. Fat pad is removed from the patellar tendon. Patellar thickness was measured to be 23 mm and a resection of 11 mm of bone was taken off the patella with the jig. Tele- sized to be size 29 asymmetric patella and the lug holes were drilled for the patellar button. This point patella was retracted laterally and protected. The is placed into flexion and Z retractors were placed to protect collateral ligaments. The anterior posterior cruciate ligaments resected. The medial and lateral meniscus were resected. A step drill was used to enter the intramedullary canal the femur for distal cutting guide. Distal cutting guide was placed into the intramedullary cutting guide with a 6 valgus cut and 10 minus resection off the distal femur. This cut was made without, patient bone was passed off as specimen. The femur was then sized with the sizing jig. The femur sized to be a size 3 femur. A size 3 4-in-1 cutting block was placed onto the distal femur and the anterior posterior and chamfer cuts were made without, patient. Next the box cut guide was placed on the distal femur and a box cut was made without complication. This point posterior osteophytes removed off the posterior femoral condyles with a curved osteotome. Attention was then turned to the tibial cut. The tibia was retracted with a pickle fork retractor and translated anteriorly and a step drill was used to enter the intramedullary canal of the tibia. Tibial cutting guide was placed down each medullary canal and a plan resection of 4 mm of bone off the tibial medial compartment was made without, patient. Bone was passed off as specimen. The tibia was then sized to be a size 2 tibial tray. A trial reduction was done with a 3 femur to tibial tray and a 5 mm insert. The 5 mm insert was too loose and locked to varus and valgus stress so we jumped up to a 7 mm insert. The knee had full extension and full flexion with stability at 0 and 60 of varus and valgus stress. Component rotation of the tibia was marked and the components removed the tibial component pinned in place and the keel cut was made. At this point all insurance removed and the knee was pulse lavaged. The bone cement was mixed on the back table. Cement was then done with the tibial component cemented first followed by the femoral component. All excess cement was removed with curettes and a 7 tibial trial was placed onto the tibial component and knee was placed in extension as the cement hardened. The patellar button was then cemented in place of no at this point I was given the knowledge that the patellar button had an expiration date of 2017 so the patellar button was 1 month at this point we had no choice but to proceed with the procedure there were no other patellar buttons in the hospital. The office professionals did mention this to the operating room supervisor cellars and to the technical mgr and all were aware of the expiration day. The patellar button was cemented in place and the knee was placed in extension while cement hardened. The knee was taken through a range of motion found to be stable with the 7 mm insert. A 7 mm polyethylene insert was opened and locked onto the tibial tray. The knee was pulse lavaged and the tourniquet was released. Bleeding was stopped with electrocautery. The arthrotomy is closed #1 Vicryl interrupted sutures and subcutaneous tissues closed with one #1 Vicryl and 2-0 Vicryl interrupted sutures skin was closed kadie and sterile dressing was applied. Patient was awakened taken recovery in stable condition.
--- NOTE | 2017-11-03 10:44 | Cons- Medical ---
General Information and HPI Consulting Request Date of Consult: 11/03/17 Requested By: Aury HO,Bert Moy Reason for Consult: Medical co-management Source of Information: patient, old records Exam Limitations: physical impairment History of Present Illness: Mrs. Paddy Rojas is a 71-year-old German-speaking female with a history of hypertension, dyslipidemia, diabetes mellitus, previous syncope, bradycardia of uncertain etiology s/p PPI placement and asthma. She presents to the hospital for an elective LEFT knee total arthroplasty for severe OA. Reason for consult: medical co-management. At the time of the interview, in the PACU, the patient is still fatigued, but AAOx3. Her vitals at the time of evaluation are HR 60, narrow complex, on the monitor, BP 173/72, saturating 92% on 4L. She does complain of left knee pain as expected, but offers no other acute complaints. Allergies/Medications Allergies: Coded Allergies: aspirin (HIVES 10/27/17) Home Med List: Atorvastatin Calcium 10 MG TABLET 1 TAB PO DAILY CHOLESTEROL (Reported) Budesonide/Formoterol Fumarate (Symbicort 160-4.5 Mcg Inhaler) 160 MCG-4.5 MCG/ ACTUATION HFA.AER.AD 2 PUF INH BID asthma .. Duloxetine HCl 60 MG CAPSULE.DR 1 CAP PO DAILY DEPRESSION (Reported) Gabapentin 300 MG CAPSULE 1 CAP PO TID NERVE PAIN (Reported) Hydrochlorothiazide 12.5 MG CAPSULE 1 TAB PO DAILY BLOOD PRESSURE .. Insulin Aspart (Novolog) 100 UNIT/ML VIAL DM (Reported) please use as per your PCPs recommendations Losartan Potassium 50 MG TABLET 50 MG PO DAILY Blood pressure .. Melatonin 5 MG TABLET 1 TAB PO QPM SUPPLEMENT (Reported) Pantoprazole Sodium 40 MG TABLET.DR 1 TAB PO DAILY ACID REFLUX (Reported) Sitagliptin Phosphate (Januvia) 100 MG TABLET 1 TAB PO DAILY DIABETES ( Reported) Current Medications: Current Medications Sig/Jan Start time Last Medication Dose Route Stop Time Status Admin Acetaminophen 0 .STK-MED ONE 11/03 653 DC PO Bupivacaine Liposome 266 MG .STK-MED ONE 11/03 08 DC INF 11/03 08 Dexamethasone 0 .STK-MED ONE 11/03 0653 DC .ROUTE Gabapentin 0 .STK-MED ONE 11/03 653 DC PO Oxycodone HCl 0 .STK-MED ONE 05/30 0654 DC PO Scopolamine HBr 0 .STK-MED ONE 11/03 0653 DC TOP Vancomycin HCl 1,250 MG ONCE 11/03 0000 NR Sodium Chloride 250 ML IV 11/03 9341 Review of Systems Review of Systems Constitutional: Reports: see HPI. Past History Medical History Cardiovascular: hypertension, hyperlipidemia, syncope, bradycardia Respiratory: asthma Endocrine: diabetes Surgical History Surgical History: cholecystectomy, cataract removal, (Left carpal tunnel release), tubal ligation, KNEE REPLACEMENT GASTRIC BYPASS left carpal tunnel release. Psychosocial History Primary Language: German Smoking Status: Unknown If Ever Smoked Exam & Diagnostic Data Last 24 Hrs of Vital Signs/I&O Vital Signs Date Time Temp Pulse Resp B/P B/P Pulse O2 O2 Flow FiO2 Mean Ox Delivery Rate 11/04 0800 72 148/64 11/04 0800 98.7 72 18 148/64 98 Nasal 2.0L Cannula 11/04 0129 97.7 59 18 146/64 96 11/04 0000 97 Nasal 2.0L Cannula 11/03 2201 98.3 64 18 154/70 97 Nasal 2.0L Cannula 11/03 1938 98.0 61 17 148/72 93 Nasal 2.0L Cannula 11/03 1730 97.4 62 18 142/62 93 Nasal 2.0L Cannula 11/03 1607 97.7 61 16 146/88 97 Nasal 2.0L Cannula 11/03 1600 Nasal 2.0L Cannula Intake & Output 11/04 1600 11/04 0800 11/04 0000 Intake Total 1325 Output Total 250 Balance 1075 Intake, IV 525 Intake, Oral 800 Output, Urine 250 Patient 84.368 kg Weight Weight Reported by Patient Measurement Method Physical Exam General Appearance: well developed/nourished, no apparent distress, alert, awake Head: atraumatic, normal appearance Neck: normal inspection, supple Respiratory: normal breath sounds, chest non-tender, quiet respiration, lungs clear Cardiovascular: regular rate/rhythm Gastrointestinal: normal bowel sounds, soft, non-tender Extremities: left knee with kadie in place and ice-pack, no LE swelling Last 24 Hrs of Labs/Mariuzs: na Assessment/Plan Assessment/Plan Mrs. Paddy Rojas is a 71-year-old German-speaking female with a history of hypertension, dyslipidemia, diabetes mellitus, previous syncope, bradycardia of uncertain etiology s/p PPI placement and asthma. She is PO#0 s/p LEFT knee total arthroplasty for severe OA. Problem List/Plan: s/p total arthroplasty of L knee * Eliquis added for AC starting tomorrow * Weight bearing and PT per surgery HTN * Continue hydrochlorothiazide and losartan * Consider checking electrolytes tomorrow morning * If patient remains hypertensive after adequate pain control, and electrolytes unremarkable, consider increasing either hydrochlorothiazide to 25 mg daily or losartan to 100 mg daily DM * Continue the patient's Januvia * Consider fingerstick measurements and insulin sliding scale if sugars are uncontrolled HLD * Continue atorvastatin Thank you for involving us in the care of Mrs. Thomason. Consult Acknowledgment - Thank you for your consult request.
[2017-11-03 16:07] VITALS: BP 146/88
--- NOTE | 2017-11-03 16:21 | PN- Orthopedic ---
Subjective Subjective: POC S/P LEFT TKA SITTING UP IN BED TALKING ON PHONE PAIN BETTER CONTROLLED DENEIS CP, SOB, NO N+V WITH DIET Objective Vital Signs and I&Os Vital Signs Date Time Temp Pulse Resp B/P B/P Pulse O2 O2 Flow FiO2 Mean Ox Delivery Rate 11/03 1607 97.7 61 16 146/88 97 Nasal 2.0L Cannula 11/03 1600 Nasal 2.0L Cannula Physical Exam: CV: RRR LUNGS: CLEAR ABDa: SOFT, +BS EXT: DRSG DRY DISTAL CMS INTACT BILAT Assessment/Plan Assessment/Plan ORTHO STABLE PLAN ELIQUIS BID/ALPS FOR DVT PROPHYLAXIS OOB WITH PT IN AM WBAT LEFT LE TITRATE PAIN MEDS ALL OTHERS ORDERED Core Measures Venous Thromboembolism VTE Risk Factors Surgery No Mechanical VTE Prophylaxis d/t N/A MechProphylax Ordered No VTE Pharm Prophylaxis d/t NA PharmProphylax ordered
[2017-11-03 17:30] VITALS: BP 142/62
[2017-11-03 19:38] VITALS: BP 148/72
[2017-11-03 22:01] VITALS: BP 154/70
[2017-11-04 01:29] VITALS: BP 146/64
--- NOTE | 2017-11-04 07:31 | PN- Orthopedic ---
Surgical Brief Attending Note Brief Attending Note: Patient seen this morning postop day #1 status post left total knee arthroplasty. Patient complains of mild to moderate pain. Dressing is in place. The left lower extremity is grossly neurovascular intact. No calf tenderness. Plan will be to follow-up labs today continue with pain control and start physical therapy weightbearing as tolerated with ambulation.
[2017-11-04 08:00] VITALS: BP 148/64
[2017-11-04 08:37] LABS: ABSOLUTE BASOPHIL COUNT 0 /CUMM (0.0-0.2); ABSOLUTE EOSINOPHIL COUNT 0 /CUMM (0.0-0.7); ABSOLUTE GRANULOCYTE CT 10.2 /CUMM (1.4-6.5); ABSOLUTE LYMPH COUNT 1.5 /CUMM (1.2-3.4); ABSOLUTE MONOCYTE COUNT 0.8 /CUMM (0.10-0.60); BASOPHIL % 0.2 % (0.0-2.0); EOSINOPHIL % 0.3 % (0-5); GRANULOCYTE % 80.9 % (42.2-75.2); HEMATOCRIT 31.7 % (37-47); MEAN CORPUSCULAR HGB 27.9 PG (27.0-31.0); MEAN CORPUSCULAR VOLUME 87.1 FL (81.0-99.0); MEAN PLATELET VOLUME 9.4 FL (7.4-10.4); PLATELET COUNT 222 /CUMM (130-400); RBC DISTRIBUTION WIDTH 14.4 % (11.5-14.5); RED BLOOD CELL CT 3.64 /CUMM (4.20-5.40); WHITE BLOOD CELL COUNT 12.6 /CUMM (4.8-10.8)
--- NOTE | 2017-11-04 09:52 | PN- Medicine Consult ---
See Addendum Assessment/PlanMedical Consult Assessment/Plan Assessment: Mrs. Paddy Rojas is a 71-year-old [place]-speaking female with a history of hypertension, dyslipidemia, diabetes mellitus, previous syncope secondary to bradycardia of uncertain etiology s/p PPM placement. She is PO#1 s/p LEFT knee total arthroplasty for severe OA. Plan: PO#1 s/p total arthroplasty of L knee * Anticoagulation to be started today. * WBAT and PT today. * Pain control overall is satisfactory. HTN * Pain most likely contributing to the elevated BP. * Electrolytes unremarkable. * Continue hydrochlorothiazide and losartan, and if her BP remains >140, in spite of fair BP control, consider increasing either hydrochlorothiazide to 25 mg daily or losartan to 100 mg daily DM * Continue the patient's Januvia * Consider fingerstick measurements and insulin sliding scale if sugars are uncontrolled HLD * Continue atorvastatin Subjective Subjective: Ms. Thomason is overall doing well today, but still complaining of quite a bit of pain. She was able to ambulate to the chair from her bed with assistance and is scheduled to work with PT today, and is WBAT. Her labs were grossly unremarkable, with only a slight drop in her H/H compared to her baseline, and a small increase in her WBC, which is expected post-op. She remains on O2, 2L, but is saturating well. Her BP is a little on the high side, but not too concerning at the moment. Objective Last 24 Hrs of Vital Signs/I&O Vital Signs Date Time Temp Pulse Resp B/P B/P Pulse O2 O2 Flow FiO2 Mean Ox Delivery Rate 11/04 0800 72 148/64 11/04 08 98.7 72 18 148/64 98 Nasal 2.0L Cannula 11/04 0129 97.7 59 18 146/64 96 11/04 0000 97 Nasal 2.0L Cannula 11/03 2201 98.3 64 18 154/70 97 Nasal 2.0L Cannula 11/03 1938 98.0 61 17 148/72 93 Nasal 2.0L Cannula 11/03 1730 97.4 62 18 142/62 93 Nasal 2.0L Cannula 11/03 1607 97.7 61 16 146/88 97 Nasal 2.0L Cannula 11/03 1600 Nasal 2.0L Cannula Intake & Output 11/04 1600 11/04 0800 11/04 0000 Intake Total 1325 Output Total 250 Balance 1075 Intake, IV 525 Intake, Oral 800 Output, Urine 250 Patient 84.368 kg Weight Weight Reported by Patient Measurement Method Current Medications: Current Medications Sig/Jan Start time Last Medication Dose Route Stop Time Status Admin Acetaminophen 1,000 MG .STK-MED ONE 11/03 1252 DC IV 11/03 1253 Apixaban 2.5 MG BID 11/04 0900 AC 11/04 PO 0801 Atorvastatin Calcium 10 MG 1700 11/04 1700 AC PO Docusate Sodium 100 MG BID 11/04 2100 AC PO Docusate Sodium 100 MG DAILY NEEDED PRN 11/03 1545 DC 11/04 PO 0805 Duloxetine HCl 60 MG DAILY 11/04 0900 AC 11/04 PO 0801 Gabapentin 300 MG TID 11/03 1400 AC 11/04 PO 0801 Hydrochlorothiazide 12.5 MG DAILY 11/04 0900 AC 11/04 PO 0801 Hydromorphone HCl 2 MG .STK-MED ONE 11/03 1044 DC IM 11/03 1045 Hydromorphone HCl 2 MG .STK-MED ONE 11/03 1013 DC IM 11/03 1014 Hydromorphone HCl 2 MG .STK-MED ONE 11/03 0954 DC IM 11/03 0955 Insulin Aspart 0 SEE SLIDING SCALE 11/03 1545 DC SC Insulin Human Regular 0 TIDAC/HS 11/03 1700 AC 11/04 SC 0758 Losartan Potassium 50 MG DAILY 11/04 0900 AC 11/04 PO 0800 Morphine Sulfate 2 MG Q3P PRN 11/04 0915 AC IV Morphine Sulfate 2 MG Q3P PRN 11/03 1545 DC IV Morphine Sulfate 4 MG Q3P PRN 11/03 1545 DC 11/04 IV 0805 Omeprazole 40 MG DAILY AC 11/04 0700 AC 11/04 PO 0507 Ondansetron HCl 4 MG Q6P PRN 11/03 1545 AC IV Oxycodone/ 1 TAB Q4P PRN 11/03 1545 AC Acetaminophen PO Oxycodone/ 2 TAB Q4P PRN 11/03 1545 AC 11/04 Acetaminophen PO 0448 Polyethylene Glycol 17 GM DAILY 11/05 0900 AC PO Polyethylene Glycol 17 GM DAILY NEEDED PRN 11/03 1545 DC PO Senna/Docusate Sodium 2 TAB AT BEDTIME NEED.. 11/03 1545 AC PO Sitagliptin Phosphate 100 MG DAILY 11/04 0900 AC 11/04 PO 0801 Sodium Chloride 1,000 ML .[id number] 11/03 1545 DC 11/04 IV 0445 Vancomycin HCl 1,250 MG ONCE ONE 11/03 1900 DC 11/03 Sodium Chloride 250 ML IV 11/03 Vancomycin HCl 1,250 MG ONCE 11/03 0000 DC Sodium Chloride 250 ML IV 11/03 2359 Results Last 24 Hrs Lab/Mariusz Results: Laboratory Tests 11/04/17 0730: Anion Gap 7, Estimated GFR > 60, BUN/Creatinine Ratio 22.5, CBC w Diff NO MAN DIFF REQ, RBC 3.64 L, MCV 87.1, MCH 27.9, MCHC 32.0 L, RDW 14.4, MPV 9.4, Gran % 80.9 H, Lymphocytes % 12.0 L, Monocytes % 6.6, Eosinophils % 0.3, Basophils % 0.2, Absolute Granulocytes 10.2 H, Absolute Lymphocytes 1.5, Absolute Monocytes 0.8 H, Absolute Eosinophils 0, Absolute Basophils 0
[2017-11-04 14:08] VITALS: BP 142/82
[2017-11-04 21:54] VITALS: BP 142/80
[2017-11-05 06:08] VITALS: BP 140/82
--- NOTE | 2017-11-05 08:21 | PN- Medicine Consult ---
See Addendum Assessment/PlanMedical Consult Assessment/Plan Assessment: Mrs. Paddy Rojas is a 71-year-old Italian-speaking female with a history of hypertension, dyslipidemia, diabetes mellitus, previous syncope secondary to bradycardia of uncertain etiology s/p PPM placement. She is PO#2 s/p LEFT knee total arthroplasty for severe OA. She is still in quite a bit of pain, but states it is a little better than yesterday. She was able to walk with PT. Plan: Plan: PO#2 s/p total arthroplasty of L knee * Pt still having a moderate amount pain in spite of MS contin 15 PO BID, Roxicodone 10mg PO q4P, and dilaudid 1mg IV q2-3P, although has only required 2 doses. If her pain scores remain in the 7-10 range, consider scheduled Roxicodone 10mg q8, with 5mg q4-6 PRN for breakthrough pain, in addition to the PRN IV dilaudid * WBAT and PT per surgery HTN * BP remains slightly elevated. Most likely 2/2 pain. * As mentioned yesterday, please, continue hydrochlorothiazide and losartan, and if her BP remains >140, in spite of fair BP control, consider increasing either hydrochlorothiazide to 25 mg daily or losartan to 100 mg daily DM * Pts fingerstick measurements are fair, in the 120-150 range over the last 24h. * Continue the current regimen and consider novolog sliding scale if her sugars remain persistently elevated above 150. HLD * Continue atorvastatin Subjective Subjective: Ms. Thomason was seen and examined at the bedside. She is sitting up in her chair eating breakfast and looks comfortable. She still complains of a lot of pain, 6-10, but denies any acute worsening of the pain. She is tolerating food well, and walking with PT. Objective Last 24 Hrs of Vital Signs/I&O Vital Signs Date Time Temp Pulse Resp B/P B/P Pulse O2 O2 Flow FiO2 Mean Ox Delivery Rate 11/06 607 98.5 72 20 140/82 95 11/04 2154 97.9 60 19 142/80 93 Room Air 11/04 1408 97.9 59 20 142/82 94 Intake & Output 11/05 1600 11/05 0800 11/05 0000 Intake Total 440 240 Output Total 600 200 Balance -160 40 Intake, IV 240 Intake, Oral 200 240 Number 0 Bowel Movements Output, Urine 600 200 Current Medications: Current Medications Sig/Jan Start time Last Medication Dose Route Stop Time Status Admin Acetaminophen 1,000 MG Q6H 11/04 1300 DC 11/05 N/A 1 UNIT IV 11/05 0714 0636 Apixaban 2.5 MG BID 11/04 0900 AC 11/04 PO 2020 Atorvastatin Calcium 10 MG 1700 11/04 1700 AC 11/04 PO 1722 Diazepam 2 MG Q12P PRN 11/04 1600 AC 11/05 PO 0534 Docusate Sodium 100 MG BID 11/04 2100 AC 11/04 PO 2020 Docusate Sodium 100 MG .STK-MED ONE 11/04 0959 DC PO 11/04 1000 Docusate Sodium 100 MG DAILY NEEDED PRN 11/03 1545 DC 11/04 PO 0805 Duloxetine HCl 60 MG DAILY 11/04 0900 AC 11/04 PO 0801 Gabapentin 300 MG TID 11/03 1400 AC 11/04 PO 2020 Hydrochlorothiazide 12.5 MG DAILY 11/04 0900 AC 11/04 PO 0801 Hydromorphone HCl 1 MG Q2-3 HRS NEEDED.. 11/04 1445 AC 11/05 IV 0528 Insulin Human Regular 2 UNITS .STK-MED ONE 11/04 1721 DC IV 11/04 1722 Insulin Human Regular 4 UNITS .STK-MED ONE 11/04 1233 DC IV 11/04 1234 Insulin Human Regular 0 TIDAC/HS 11/03 1700 AC 11/04 SC 1722 Losartan Potassium 50 MG DAILY 11/04 0900 AC 11/04 PO 0800 Morphine Sulfate 15 MG BID 11/04 1045 AC 11/04 PO 2021 Morphine Sulfate 2 MG Q3P PRN 11/04 0915 DC IV Morphine Sulfate 2 MG Q3P PRN 11/03 1545 DC IV Morphine Sulfate 4 MG Q3P PRN 11/03 1545 DC 11/04 IV 0805 Omeprazole 40 MG DAILY AC 11/04 0700 AC 11/05 PO 0535 Ondansetron HCl 4 MG Q6P PRN 11/03 1545 AC IV Oxycodone HCl 5 MG Q4P PRN 11/04 1400 AC PO Oxycodone HCl 10 MG Q4P PRN 11/04 1400 AC 11/05 PO 0640 Oxycodone/ 1 TAB Q4P PRN 11/03 1545 DC Acetaminophen PO Oxycodone/ 2 TAB Q4P PRN 11/03 1545 DC 11/04 Acetaminophen PO 1002 Patient Medication 1 ED ONE ONE 11/04 1630 DC Teaching ED 11/04 1631 Polyethylene Glycol 17 GM DAILY 11/05 0900 AC PO Polyethylene Glycol 17 GM DAILY NEEDED PRN 11/03 1545 DC PO Senna/Docusate Sodium 2 TAB AT BEDTIME NEED.. 11/03 1545 AC 11/04 PO 2020 Sitagliptin Phosphate 100 MG DAILY 11/04 0900 AC 11/04 PO 0801 Results Last 24 Hrs Lab/Mariusz Results: na
--- NOTE | 2017-11-05 13:02 | PN- Orthopedic ---
Subjective Subjective: POD#2 S/P LEFT TKA PAIN CONTROL ISSUES AFFECTING OOB WITH PT DENEIS CP, SOB, NO N+V WITH DIET Objective Vital Signs and I&Os Vital Signs Date Time Temp Pulse Resp B/P B/P Pulse O2 O2 Flow FiO2 Mean Ox Delivery Rate / 0941 134/64 / 0800 9 11/05 0608 98.5 72 20 140/82 95 11/04 2154 97.9 60 19 142/80 93 Room Air 11/04 1408 97.9 59 20 142/82 94 Intake & Output / 1600 11/05 0800 11/05 0000 11/04 1600 11/04 0800 11/04 0000 Intake Total 440 431 811 1423 Output Total 600 200 950 250 Balance -160 40 -200 1075 Intake, IV 240 150 525 Intake, Oral 200 240 600 800 Number 0 Bowel Movements Output, Urine 600 200 950 250 Patient 186 lb Weight Weight Reported by Patient Measurement Method Physical Exam: CV: RRR LUNGS: CLEAR ABD: SOFT, +BS EXT: DRSG CHANGED, WOUND C/D/I CALVES SOFT, DISTAL CMS INTACT Assessment/Plan Assessment/Plan ORTHO STABLE PLAN CONT OOB WITH PT TITRATE PAIN MEDS HOME V SNF UPON D/C Core Measures Venous Thromboembolism VTE Risk Factors Surgery No Mechanical VTE Prophylaxis d/t N/A MechProphylax Ordered No VTE Pharm Prophylaxis d/t NA PharmProphylax ordered
--- NOTE | 2017-11-05 13:12 | RADIOLOGY REPORT ---
EXAMINATION: XR KNEE, LEFT CLINICAL INFORMATION: Status post total knee arthroplasty COMPARISON: None TECHNIQUE: AP and crosstable lateral of the left knee. FINDINGS: There is slightly oblique positioning on the AP and crosstable lateral views. Given the limitations of the projections, the components of the total knee arthroplasty appear to be in satisfactory position. Alignment is anatomic. No acute periprosthetic fracture or overt joint effusion. Postoperative soft tissue edema/swelling of the knee with anterior skin kadie in place. IMPRESSION: There appears to be satisfactory positioning and alignment of the components of the total knee arthroplasty. No acute periprosthetic fracture.
[2017-11-05 14:45] VITALS: BP 140/64
[2017-11-05 22:00] VITALS: BP 144/62
[2017-11-06 06:28] VITALS: BP 120/82
--- NOTE | 2017-11-06 08:14 | Patient Discharge Instructions ---
Discharge Instructions General Discharge Information You were seen/treated for: Primary left knee osteoarthritis You had these procedures: Left knee arthroplasty Watch for these problems: Temperature greater than 101.5, increased wound drainage/redness Call Surgeon to remove: [place] No bath, but you may shower: Yes Other wound care: Keep wound clean and dry, dry sterile dressing changes to left knee daily Diet Continue normal diet: Yes Activity Activity Limited to: Weight bear as tolerated Other activity limits: Out of bed weightbearing as tolerated left leg with physical therapy 2-3 times a day Acute Coronary Syndrome Inclusion Criteria At DC or during hospital stay patient has or had the following: ACS DIAGNOSIS No Discharge Core Measures Meds if any: Prescribed or Continued at Discharge Meds if any: NOT Prescribed or Continued at Discharge Congestive Heart Failure Inclusion Criteria At DC or during hospital stay patient has or had the following: CHF DIAGNOSIS No Discharge Core Measures Meds if any: Prescribed or Continued at Discharge Meds if any: NOT Prescribed or Continued at Discharge Cerebrovascular accident Inclusion Criteria At DC or during hospital stay patient has or had the following: CVA/TIA Diagnosis No Discharge Core Measures Meds if any: Prescribed or Continued at Discharge Meds if any: NOT Prescribed or Continued at Discharge Venous thromboembolism Inclusion Criteria VTE Diagnosis No VTE Type NONE VTE Confirmed by (Test) NONE Discharge Core Measures - Per Current guidelines, there needs to be overlap - treatment for the first 5 days of Warfarin therapy. - If discharged on Warfarin prior to 5 days of - overlap therapy, the patient will need to be - assessed for post discharge needs including - *Post discharge parental anticoagulation - *Warfarin and/or parental anticoagulation education - *Follow up date to check INR post discharge At least 5 days overlap therapy as Inpatient No Meds if any: Prescribed or Continued at Discharge Note: Overlap Therapy is Warfarin and Anticoagulant Meds if any: NOT Prescribed or Continued at Discharge
[2017-11-06] MEDS ORDERED: ELIQUIS2.5 M1 PO (08:17)
[2017-11-06] MEDS ORDERED: MORPHINE SULFAT15 M3 PO (08:17)
[2017-11-06] MEDS ORDERED: DOCUSATE SODIU100 M3 PO (08:17)
[2017-11-06] MEDS ORDERED: MIRALAX119 GM PO (08:17)
[2017-11-06] MEDS ORDERED: OXYCODONE HCL5 M1 PO (08:18)
--- NOTE | 2017-11-06 08:23 | Discharge Summary ---
Visit Information Visit Dates Admission Date: 11/03/17 Discharge Date: 11/06/17 Hospital Course Course Attending Physician: Bert Jeffers MD Primary Care Physician: Viv HO,Viv Hospital Course: Mrs Clark 9-year-old female who was taken to the operating room for primary left knee osteoarthritis. She underwent left total knee arthroplasty. She tolerated the procedure well and was transferred to the floor. She was out of bed with physical therapy postop day 1 to and 3 however pain limited therapy somewhat which was not unlike her previous admission. However her plans to go home were changed because of this and she will now be transferred to custodial facility for assistance needed to get out of bed to increase activities of daily living. Her hospital stays otherwise unremarkable. Allergies: Coded Allergies: aspirin (HIVES 10/27/17) Significant Procedures: Left total knee arthroplasty Disposition Summary Disposition Principal Diagnosis: Primary left knee osteoarthritis Additional Diagnosis: None Discharge Disposition: SNF Discharge Instructions General Discharge Information Code Status: Full Code Patient's Diet: Diabetic diet Patient's Activity: Out of bed to 3 times a day and may be weightbearing as tolerated left lower extremity Follow-Up Instructions/Appts: Follow-up with Dr. Strong in 2 weeks for staple removal to left knee Call for any wound changes, or temperature greater than 101.5 Medications at Discharge Discharge Medications: Continue taking these medications: Pantoprazole Sodium (Pantoprazole Sodium) 40 MG TABLET.DR 1 Tablet ORAL DAILY Qty = 30 Comments: NOT GIVEN THIS ADMISSION Sitagliptin Phosphate (Januvia) 100 MG TABLET 1 Tablet ORAL DAILY Qty = 90 Comments: NOT GIVEN THIS ADMISSION Gabapentin (Gabapentin) 300 MG CAPSULE 1 Capsule ORAL THREE TIMES DAILY Days = 30 Comments: Last Taken:08/21/17 Time:10:03A.M Atorvastatin Calcium (Atorvastatin Calcium) 10 MG TABLET 1 Tablet ORAL DAILY Days = 90 Comments: Last Taken:08/21/17 Time:1003A.M Melatonin (Melatonin) 5 MG TABLET 1 Tablet ORAL Every night Qty = 30 Comments: Last Taken:08/20/17 Time:9:39P.M Insulin Aspart (Novolog) 100 UNIT/ML VIAL Units Inject into fatty tissue BEFORE MEALS AND AT BEDTIME Instructions: please use as per your PCPs recommendations Comments: Last Taken:08/21/17 Time:1250P.M Budesonide/Formoterol Fumarate (Symbicort 160-4.5 Mcg Inhaler) 160 MCG-4.5 MCG/ ACTUATION HFA.AER.AD 2 Puff Inhale through mouth TWICE DAILY Qty = 1 Instructions: .. Comments: Last Taken:08/21/17 Time:10:03A.M Hydrochlorothiazide (Hydrochlorothiazide) 12.5 MG CAPSULE 1 Tablet ORAL DAILY Qty = 30 Instructions: .. Comments: Last Taken:08/21/17 Time:10:03A.M Losartan Potassium (Losartan Potassium) 50 MG TABLET 50 Milligram ORAL DAILY Qty = 30 Instructions: .. Comments: Last Taken:08/21/17 Time:10:03A.M Duloxetine HCl (Duloxetine HCl) 60 MG CAPSULE.DR 1 Capsule ORAL DAILY Start taking the following new medications: Apixaban (Eliquis) 2.5 MG TABLET 1 Tablet ORAL TWICE DAILY Qty = 30 No Refills Morphine Sulfate (Morphine Sulfate ER) 15 MG TABLET.ER 1 Tablet ORAL TWICE DAILY Qty = 30 No Refills Docusate Sodium (Docusate Sodium) 100 MG CAPSULE 1 Tablet ORAL TWICE DAILY Qty = 30 No Refills Polyethylene Glycol 3350 (Miralax) 17 GRAM/DOSE POWDER 1 Packet ORAL DAILY as needed for NO BM IN TWO DAYS Qty = 10 No Refills Oxycodone HCl (Oxycodone HCl) 5 MG TABLET 1-2 Tablet ORAL EVERY 4 HOURS NEEDED as needed for PAIN SCALE 4-6 ( MODERATE) Qty = 30 No Refills Copies To: Aury HO,Bert Moy
[2017-11-06 10:28] VITALS: BP 120/82
--- NOTE | 2017-11-06 17:15 | PN- Orthopedic ---
Surgical Brief Attending Note Brief Attending Note: Comfortable in bed. Eating dinner Calf is soft and nontender. Incision is clean, mild serous drainage proximally Neuro intact Status post left total knee Rehabilitation Anticoagulation
== END 2017-11-06 21:17 | DRG 470 ==
LOC: SDA 03:05 → ENRESERV 10:14 → CANRESERV 10:14 → EDBEDREQ 10:45 → ENRESERV 13:50 → ENTRNSPT 14:43 → EDTRNSPT 15:05 → EDTRNSPTSTS 15:05 → 2NB 15:24 → CMPTRNSPT 15:34 → ENPENDDIS 11-06 08:23 → 2NB 11-06 21:17
PROVIDERS: Physician Assistant Surgical
PROC: 0SRD0J9 Replacement of Left Knee Joint with Synthetic Substitute, Cemented, Open Approach (ICD-10-PCS; principal; 2017-11-03)
PROC: 3E0T3BZ Introduction of Anesthetic Agent into Peripheral Nerves and Plexi, Percutaneous Approach (ICD-10-PCS; principal; 2017-11-03)
DX: M17.12 Unilateral primary osteoarthritis, left knee (principal); E78.5 Hyperlipidemia, unspecified; I10 Essential (primary) hypertension; E11.9 Type 2 diabetes mellitus without complications; Z88.6 Allergy status to analgesic agent; Z79.4 Long term (current) use of insulin; Z90.49 Acquired absence of other specified parts of digestive tract; Z98.51 Tubal ligation status; Z98.84 Bariatric surgery status; K21.9 Gastro-esophageal reflux disease without esophagitis; G47.33 Obstructive sleep apnea (adult) (pediatric); J44.9 Chronic obstructive pulmonary disease, unspecified; I25.10 Atherosclerotic heart disease of native coronary artery without angina pectoris; Z79.51 Long term (current) use of inhaled steroids; Z95.0 Presence of cardiac pacemaker; Z96.651 Presence of right artificial knee joint
CPT/HCPCS: 2NBP; 36415; 73560-LT; 82436; 87086; 88305; 97110-GO; 97116-GO; 97161-GP; 97530-GO; C1713; C9290; J0131; J1100; J1815; J3370; J7040

== ENCOUNTER 2017-11-17 10:25 | Emergency (ER) | payer OTHER, MEDICARE ==
[~2017-11-17 10:25] MED LIST changes: +DOCUSATE SODIU100 M3 PO; +ELIQUIS2.5 M1 PO; +MIRALAX119 GM PO; +MORPHINE SULFAT15 M3 PO; +OXYCODONE HCL5 M1 PO
--- NOTE | 2017-11-17 10:30 | ED GENERAL ADULT ---
History of Present Illness General Chief Complaint: General Adult Stated Complaint: BIBA VOMITING,LEG SWELLING Source: patient Exam Limitations: no limitations Vital Signs & Intake/Output Vital Signs & Intake/Output Vital Signs Date Time Temp Pulse Resp B/P B/P Pulse O2 O2 Flow FiO2 Mean Ox Delivery Rate 11/17 1811 64 18 186/68 97 11/17 1616 98 Nasal 2.0L Cannula 11/17 1616 89 18 146/67 89 Room Air 11/17 1518 69 18 96 Room Air 11/17 1517 Room Air 11/17 1418 98.1 70 20 149/66 97 Room Air 11/17 1034 98.5 62 18 178/84 99 Room Air ED Intake and Output 11/18 0000 11/17 1200 Intake Total 0 Output Total Balance 0 Intake, Oral 0 Allergies Coded Allergies: aspirin (HIVES 10/27/17) Triage Nurses Notes Reviewed? yes Onset: Abrupt Duration: day(s): Timing: recent history HPI: 11/17/17 1:50 PM 72-year-old female brought into the emergency department for severe left knee pain. She status post surgery by Dr. Strong approximately 5 weeks ago. She recently had the sutures out and now she's complaining of severe left knee pain. She denies any fever. (Jerson Archer DO) Reconcile Medications Amlodipine Besylate (Norvasc) 10 MG TABLET 1 TAB PO DAILY HEART (Reported) Apixaban (Eliquis) 2.5 MG TABLET 1 TAB PO BID BLOOD THINNER Atorvastatin Calcium 10 MG TABLET 1 TAB PO DAILY CHOLESTEROL (Reported) Budesonide/Formoterol Fumarate (Symbicort 160-4.5 Mcg Inhaler) 160 MCG-4.5 MCG/ ACTUATION HFA.AER.AD 2 PUF INH BID asthma .. Duloxetine HCl 60 MG CAPSULE.DR 1 CAP PO DAILY DEPRESSION (Reported) Escitalopram Oxalate 10 MG TABLET 1 TAB PO DAILY MENTAL HEALTH (Reported) Esomeprazole (Nexium) 40 MG CAPSULE.DR 1 CAP PO DAILY GI (Reported) Gabapentin 300 MG CAPSULE 2 CAP PO TID NERVE PAIN (Reported) Hydrochlorothiazide 12.5 MG CAPSULE 1 TAB PO DAILY BLOOD PRESSURE .. Insulin Aspart (Novolog) 100 UNIT/ML VIAL DM (Reported) please use as per your PCPs recommendations Insulin Detemir (Levemir Flextouch) 100 UNIT/ML (3 ML) INSULN.PEN 35 UNITS SC BID DIABETES (Reported) Lisinopril/Hydrochlorothiazide (Lisinopril-Hctz 20-12.5 MG Tab) 20 MG-12.5 MG TABLET 1 TAB PO DAILY HEART (Reported) Losartan Potassium 50 MG TABLET 50 MG PO DAILY Blood pressure .. Melatonin 5 MG TABLET 1 TAB PO QPM SUPPLEMENT (Reported) Oxycodone HCl/Acetaminophen (Percocet 5-325 MG Tablet) 5 MG-325 MG TABLET 1-2 TAB PO Q6P PRN PAIN Sitagliptin Phosphate (Januvia) 100 MG TABLET 1 TAB PO DAILY DIABETES ( Reported) (Noelle HO,Alvaro Mckenzie) Past History Travel History Traveled to [place] past 21 day No Medical History Any Pertinent Medical History? 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 Psychosocial History Who do you live with Sister Services at Home None What is your primary language Amharic Family History Hx Contributory? No (Jerson Archer DO) Review of Systems Review of Systems Constitutional: Denies: fever. EENTM: Denies: visual changes. Respiratory: Denies: short of breath. Cardiovascular: Reports: no symptoms. GI: Reports: no symptoms. Genitourinary: Reports: no symptoms. Musculoskeletal: Reports: see HPI. Skin: Reports: see HPI. Neurological/Psychological: Reports: no symptoms. Hematologic/Endocrine: Reports: no symptoms. (Jerson Archer DO) Physical Exam Physical Exam General Appearance: well developed/nourished, alert, awake, anxious, moderate distress Head: atraumatic, normal appearance Eyes: Bilateral: normal appearance, PERRL, EOMI. Ears, Nose, Throat: normal pharynx, normal ENT inspection Neck: normal inspection, supple, full range of motion Respiratory: normal breath sounds, chest non-tender, no respiratory distress Cardiovascular: regular rate/rhythm Peripheral Pulses: 4+ radial (R), 4+ radial (L) Gastrointestinal: soft, non-tender Back: normal range of motion Extremities: tenderness Neurologic/Psych: no motor/sensory deficits, awake, alert, oriented x 3 Skin: intact, normal color, warm/dry Comments: She has significant tenderness and swelling to the left leg. The knee is not warm. There is a Steri-Stripped laceration over the left knee. She is moderate pain. Core Measures ACS in differential dx? No CVA/TIA Diagnosis: No Sepsis Present: No Sepsis Focused Exam Completed? No (Jerson Archer DO) Progress Differential Diagnoses I considered the following diagnoses in my evaluation of the patient: [Septic arthritis,] DVT, cellulitis, necrotizing fasciitis, sciatica, disc herniation Plan of Care: Orders Procedure Date/time Status Onofre, Insertion/Removal/Asses 11/17 1224 Active CULTURE,URINE 11/17 1224 Active LACTIC ACID 11/17 1052 Complete D-DIMER 11/17 1052 Complete COMPREHENSIVE METABOLIC PANEL 11/17 1052 Complete CBC WITHOUT DIFFERENTIAL 11/17 1052 Complete EKG 11/17 1052 Active Laboratory Tests 11/17/17 1352: Lactic Acid Cancelled 11/17/17 1130: Anion Gap 11, Estimated GFR > 60, BUN/Creatinine Ratio 22.5, Glucose 135 H, Lactic Acid 0.8, Calcium 10.1, Total Bilirubin 0.5, AST 31, ALT 25, Alkaline Phosphatase 111, Total Protein 7.3, Albumin 3.9, Globulin 3.4, Albumin/Globulin Ratio 1.1, D-Dimer High Sensitivty 2051 H, CBC w Diff NO MAN DIFF REQ, RBC 4.13 L, MCV 86.1, MCH 27.8, MCHC 32.3 L, RDW 15.3 H, MPV 8.0, Gran % 78.4 H, Lymphocytes % 14.2 L, Monocytes % 5.2, Eosinophils % 1.8, Basophils % 0.4, Absolute Granulocytes 6.8 H, Absolute Lymphocytes 1.2, Absolute Monocytes 0.5, Absolute Eosinophils 0.2, Absolute Basophils 0 Microbiology 11/17 1240 URINE ROUT: Urine Culture - RECD Initial ED EKG: nonspecific ST T wave chg, atrial paced beats, no change from old Prior EKG: unchanged (Jerson Archer DO) Diagnostic Imaging: Viewed by Me: Ultrasound. Discussed w/RAD: Ultrasound. Radiology Impression: PATIENT: MAGI POLO PRESENT AGE: 72 PATIENT ACCOUNT NO: [id number] : 47 LOCATION: [facility] ORDERING PHYSICIAN: Jerson Archer DO SERVICE DATE: 11/17/17 EXAM TYPE: US - US-DUPLEX VENOUS EXTREM UNI EXAMINATION: US TRIPLEX LOWER EXTREMITY, LEFT CLINICAL INFORMATION: Left lower extremity edema. Swelling. COMPARISON: None TECHNIQUE: Color-flow triplex imaging with spectral analysis and compression Doppler were performed on the lower extremity. FINDINGS: Respiratory variation, normal compression and augmented flow are noted throughout the lower extremity. The visualized common femoral vein, superficial femoral vein, profunda femoral vein, popliteal vein and midcalf peroneal and posterior tibial venous segments show no evidence of deep venous thrombosis. There is no Reyna's cyst. IMPRESSION: No evidence of deep venous thrombosis involving the lower extremity. DICTATED BY: Dewayne Vega MD DATE/TIME DICTATED:11/17/171650 NECKTIE TURNER:CHARLETTE DATE/TIME TRANSCRIBED:11/17/171650 CONFIDENTIAL, DO NOT COPY WITHOUT APPROPRIATE AUTHORIZATION. <Electronically signed in Other Vendor System> SIGNED BY: Dewayne Vega MD 11/17/171654 Comments: Patient is feeling better after pain control. Patient is stable for discharge. (Noelle HO,Alvaro Mckenzie) Departure Departure Condition: Stable Departure Forms: Customer Survey General Discharge Information Comments 11/17/17 2 PM Patient had a elevated d-dimer. No shortness of breath or chest pain. She has moderate pain to the left leg. Ultrasound of the left lower extremity pending. The patient was signed out to Dr. Drake for reevaluation, consider orthopedic consultation. PATIENT: MAGI POLO PRESENT AGE: 72 PATIENT ACCOUNT NO: [id number] : 47 LOCATION: [facility] ORDERING PHYSICIAN: Jerson Archer DO SERVICE DATE: 11/17/17 EXAM TYPE: RAD - XRY-KNEE, LEFT EXAMINATION: XR KNEE, LEFT CLINICAL INFORMATION: Left knee pain COMPARISON: 11/05/2017 TECHNIQUE: AP, lateral, and both oblique views of the left knee. FINDINGS: Prosthetic components of the left total knee arthroplasty are appropriately aligned without periprosthetic fracture or abnormal lucency. No component migration. A knee joint effusion is present. Soft tissues are swollen and edematous. IMPRESSION: Appropriate alignment of the left total knee arthroplasty without evidence of osseous complications. Soft tissue swelling and edema at the left knee. Left knee joint effusion. DICTATED BY: Bradley Cadnea MD DATE/TIME DICTATED:11/17/171226 NECKTIE TURNER:CHARLETTE DATE/TIME TRANSCRIBED:11/17/171226 CONFIDENTIAL, DO NOT COPY WITHOUT APPROPRIATE AUTHORIZATION. <Electronically signed in Other Vendor System> SIGNED BY: Bradley Cadena MD 11/17/17 1232 (Jerson Archer DO) Departure Disposition: HOME OR SELF CARE Clinical Impression Primary Impression: Knee pain Referrals: Viv HO,Vvi (PCP/Family) Aury HO,Bert Moy Additional Instructions: Take Percocet as needed for pain. Return if symptoms worsen or for any concerns. Prescriptions: Current Visit Scripts Oxycodone HCl/Acetaminophen (Percocet 5-325 MG Tablet) 1-2 TAB PO Q6P PRN PAIN #20 TAB (Noelle HO,Alvaro Mckenzie) Critical Care Note Critical Care Note Critical Care Time: non-applicable (Jerson Archer DO)
[2017-11-17] MEDS ORDERED: NORVASC10 M1 PO (10:43)
[2017-11-17] MEDS ORDERED: ESCITALOPRAM OX10 MG PO (10:44)
[2017-11-17] MEDS ORDERED: LISINOPRIL-HCT1 EACH PO (10:47)
[2017-11-17] MEDS ORDERED: LEVEMIR FL100 UNIT/1 SC (10:47)
[2017-11-17] MEDS ORDERED: NEXIUM40 M1 PO (10:49)
[2017-11-17 11:50] LABS: ABSOLUTE BASOPHIL COUNT 0 /CUMM (0.0-0.2); ABSOLUTE EOSINOPHIL COUNT 0.2 /CUMM (0.0-0.7); ABSOLUTE GRANULOCYTE CT 6.8 /CUMM (1.4-6.5); ABSOLUTE LYMPH COUNT 1.2 /CUMM (1.2-3.4); ABSOLUTE MONOCYTE COUNT 0.5 /CUMM (0.10-0.60); BASOPHIL % 0.4 % (0.0-2.0); EOSINOPHIL % 1.8 % (0-5); GRANULOCYTE % 78.4 % (42.2-75.2); HEMATOCRIT 35.6 % (37-47); MEAN CORPUSCULAR HGB 27.8 PG (27.0-31.0); MEAN CORPUSCULAR HGB CONC 32.3 G/DL (33.0-37.0); MEAN CORPUSCULAR VOLUME 86.1 FL (81.0-99.0); PLATELET COUNT 411 /CUMM (130-400); RBC DISTRIBUTION WIDTH 15.3 % (11.5-14.5); RED BLOOD CELL CT 4.13 /CUMM (4.20-5.40); WHITE BLOOD CELL COUNT 8.7 /CUMM (4.8-10.8)
--- NOTE | 2017-11-17 12:32 | RADIOLOGY REPORT ---
EXAMINATION: XR KNEE, LEFT CLINICAL INFORMATION: Left knee pain COMPARISON: 11/05/2017 TECHNIQUE: AP, lateral, and both oblique views of the left knee. FINDINGS: Prosthetic components of the left total knee arthroplasty are appropriately aligned without periprosthetic fracture or abnormal lucency. No component migration. A knee joint effusion is present. Soft tissues are swollen and edematous. IMPRESSION: Appropriate alignment of the left total knee arthroplasty without evidence of osseous complications. Soft tissue swelling and edema at the left knee. Left knee joint effusion.
--- NOTE | 2017-11-17 16:55 | ULTRASOUND REPORT ---
EXAMINATION: US TRIPLEX LOWER EXTREMITY, LEFT CLINICAL INFORMATION: Left lower extremity edema. Swelling. COMPARISON: None TECHNIQUE: Color-flow triplex imaging with spectral analysis and compression Doppler were performed on the lower extremity. FINDINGS: Respiratory variation, normal compression and augmented flow are noted throughout the lower extremity. The visualized common femoral vein, superficial femoral vein, profunda femoral vein, popliteal vein and midcalf peroneal and posterior tibial venous segments show no evidence of deep venous thrombosis. There is no Reyna's cyst. IMPRESSION: No evidence of deep venous thrombosis involving the lower extremity.
[2017-11-17] MEDS ORDERED: PERCOCET 5-3251 EACH PO (17:48)
[2017-11-17 18:11] VITALS: BP 186/68
== END 2017-11-17 17:55 ==
LOC: ERH 10:25
PROVIDERS: Emergency Medicine
DX: M25.562 Pain in left knee (principal); I10 Essential (primary) hypertension; E11.9 Type 2 diabetes mellitus without complications
CPT/HCPCS: 73560-LT; 87086; 93005; 93010; 96372; 96374; 96375; J0131

== ENCOUNTER 2017-11-19 14:11 | Emergency (ER) | payer OTHER, MEDICARE ==
[~2017-11-19] VITALS: Ht 149.9 cm; Wt 81.2 kg
[~2017-11-19 14:11] MED LIST changes: +LEVEMIR FL100 UNIT/1 SC; +NEXIUM40 M1 PO; +NORVASC10 M1 PO; +PERCOCET 5-3251 EACH PO
--- NOTE | 2017-11-19 15:44 | ED GENERAL ADULT ---
History of Present Illness General Chief Complaint: General Adult Stated Complaint: HIGH BP PER FAMILY, VEGA, "HOT FLASHES" Source: patient, family, old records Exam Limitations: no limitations Vital Signs & Intake/Output Vital Signs & Intake/Output Vital Signs Date Time Temp Pulse Resp B/P B/P Pulse O2 O2 Flow FiO2 Mean Ox Delivery Rate 11/19 1835 64 20 160/80 97 Room Air 11/19 1717 64 20 158/68 96 Room Air 11/19 1655 98.4 11/19 1421 98.3 74 18 184/82 93 Room Air Allergies Coded Allergies: aspirin (HIVES 10/27/17) Reconcile Medications Amlodipine Besylate (Norvasc) 10 MG TABLET 1 TAB PO DAILY HEART (Reported) Apixaban (Eliquis) 2.5 MG TABLET 1 TAB PO BID BLOOD THINNER Atorvastatin Calcium 10 MG TABLET 1 TAB PO DAILY CHOLESTEROL (Reported) Budesonide/Formoterol Fumarate (Symbicort 160-4.5 Mcg Inhaler) 160 MCG-4.5 MCG/ ACTUATION HFA.AER.AD 2 PUF INH BID asthma .. Duloxetine HCl 60 MG CAPSULE.DR 1 CAP PO DAILY DEPRESSION (Reported) Escitalopram Oxalate 10 MG TABLET 1 TAB PO DAILY MENTAL HEALTH (Reported) Esomeprazole (Nexium) 40 MG CAPSULE.DR 1 CAP PO DAILY GI (Reported) Gabapentin 300 MG CAPSULE 2 CAP PO TID NERVE PAIN (Reported) Hydrochlorothiazide 12.5 MG CAPSULE 1 TAB PO DAILY BLOOD PRESSURE .. Insulin Aspart (Novolog) 100 UNIT/ML VIAL DM (Reported) please use as per your PCPs recommendations Insulin Detemir (Levemir Flextouch) 100 UNIT/ML (3 ML) INSULN.PEN 35 UNITS SC BID DIABETES (Reported) Lisinopril/Hydrochlorothiazide (Lisinopril-Hctz 20-12.5 MG Tab) 20 MG-12.5 MG TABLET 1 TAB PO DAILY HEART (Reported) Losartan Potassium 50 MG TABLET 50 MG PO DAILY Blood pressure .. Melatonin 5 MG TABLET 1 TAB PO QPM SUPPLEMENT (Reported) Morphine Sulfate (Morphine Sulfate ER) 15 MG TABLET.ER 1 TAB PO BIDP PRN pain Ondansetron (Zofran Odt) 4 MG TAB.RAPDIS 1 TAB SL TID PRN nausea Oxycodone HCl/Acetaminophen (Percocet 5-325 MG Tablet) 5 MG-325 MG TABLET 1-2 TAB PO Q6P PRN PAIN Sitagliptin Phosphate (Januvia) 100 MG TABLET 1 TAB PO DAILY DIABETES ( Reported) Triage Note: PT'S SISTER STATES PT WAS GETTING THERAPY IN HER HOME AND THEY NOTICED THAT HER BP WAS ELEVATED AND SENT HER TO THE ED. PT REPORTS HAVING A VEGA TODAY. Triage Nurses Notes Reviewed? yes Onset: Gradual Duration: day(s): Timing: recent history Injury Environment: home Severity: moderate HPI: 72yo female with hx of HTN, ashtma, DM, bradycardia presents to ED complaining of episode of hypertension at home. Patient was receiving physical therapy when blood pressure was noted to be high, >200/110. Patient had recent left knee surgery on 11/03/[address] Jeffers and reports significant pain to left knee despite use of Percocet. Patient states the medication does not help her much and makes her nauseous. Patient reports headache beginning today described as bilateral frontal. The patient did take her home blood pressure medication. The patient denies blurry vision, abdominal pain, chest pain, dyspnea, vomiting, fevers, chills. (Laurel Waters) Past History Travel History Traveled to [place] past 21 day No Medical History Any Pertinent Medical History? 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 Psychosocial History Who do you live with Sister Services at Home None What is your primary language Tanzanian Tobacco Use: Never used ETOH Use: denies use Illicit Drug Use: denies illicit drug use Family History Hx Contributory? No (Laurel Waters) Review of Systems Review of Systems Constitutional: Reports: no symptoms. EENTM: Reports: no symptoms. Respiratory: Reports: no symptoms. Cardiovascular: Reports: see HPI. GI: Reports: see HPI. Genitourinary: Reports: no symptoms. Musculoskeletal: Reports: see HPI. Skin: Reports: no symptoms. Neurological/Psychological: Reports: see HPI. Hematologic/Endocrine: Reports: no symptoms. Immunologic/Allergic: Reports: no symptoms. All Other Systems: Reviewed and Negative (Kandace HAJI,Laurel Collazo) Physical Exam Physical Exam General Appearance: well developed/nourished, no apparent distress, alert, awake Head: atraumatic, normal appearance Eyes: Bilateral: normal appearance, PERRL, EOMI. Ears, Nose, Throat: normal pharynx, hearing grossly normal Neck: normal inspection, supple, full range of motion Respiratory: normal breath sounds, no respiratory distress, lungs clear Cardiovascular: regular rate/rhythm, normal peripheral pulses Peripheral Pulses: 2+ radial (R), 2+ radial (L) Gastrointestinal: normal bowel sounds, soft, non-tender, no organomegaly Back: normal inspection, normal range of motion Extremities: LEFT KNEE: midline healing incision with steri strips in place, no significant erythema or warmth to joint, mild swelling Neurologic/Psych: awake, alert, oriented x 3 Skin: normal color, healing incision of left knee Core Measures ACS in differential dx? No CVA/TIA Diagnosis: No Sepsis Present: No Sepsis Focused Exam Completed? No (Kandace HAJI,Laurel Collazo) Progress Differential Diagnoses I considered the following diagnoses in my evaluation of the patient: [ Postoperative pain, septic arthritis, postop infection, postoperative pain, hypertensive urgency, essential hypertension] Plan of Care: Orders Procedure Date/time Status TROPONIN LEVEL 11/19 1426 Complete COMPREHENSIVE METABOLIC PANEL 11/19 1426 Complete CBC WITHOUT DIFFERENTIAL 11/19 1426 Complete EKG 11/19 1413 Active Laboratory Tests 11/19/17 1636: Anion Gap 7, Estimated GFR > 60, BUN/Creatinine Ratio 16.3, Glucose 99, Calcium 10.0, Total Bilirubin 0.6, AST 32, ALT 18, Alkaline Phosphatase 99, Troponin I 0.01, Total Protein 7.1, Albumin 3.9, Globulin 3.2, Albumin/Globulin Ratio 1.2, CBC w Diff NO MAN DIFF REQ, RBC 4.13 L, MCV 85.8, MCH 27.3, MCHC 31.8 L, RDW 15.9 H, MPV 7.8, Gran % 66.9, Lymphocytes % 23.4, Monocytes % 7.2, Eosinophils % 2.1, Basophils % 0.4, Absolute Granulocytes 5.2, Absolute Lymphocytes 1.8, Absolute Monocytes 0.6, Absolute Eosinophils 0.2, Absolute Basophils 0 Patient's blood pressure has been decreased considerably here in the emergency department. She has not received any hypertensives however medicated with IM morphine. He has been taking her home blood pressure medications as directed. Hypertensive episode likely related to pain following physical therapy. Patient does report significant pain since her surgery. There is no evidence for septic joint based on physical exam. The patient is afebrile, no leukocytosis. Incision site is WNL. Patient to begin stronger pain control with PO morphine and take Zofran prior to initiating pain meds. SHe was instructed to follow-up with orthopedic doctor by next week. Patient's EKG is without acute ischemic changes, troponin enzymes negative, CT scan within normal limits. Patient is neurologically intact without focal neurologic deficit. The patient and her family agree with the plan of care. The patient was seen and evaluated by Dr. Archer who agrees with this plan. Diagnostic Imaging: Viewed by Me: CT Scan. Discussed w/RAD: CT Scan. Radiology Impression: PATIENT: MAGI POLO PRESENT AGE: 72 PATIENT ACCOUNT NO: [id number] : 47 LOCATION: [facility] ORDERING PHYSICIAN: Binh HAJI SERVICE DATE: 11/19/17 EXAM TYPE: CAT - CT HEAD WO IV CONTRAST EXAMINATION: CT HEAD WITHOUT CONTRAST CLINICAL INFORMATION: Headache. Elevated blood pressure. COMPARISON: CT head 08/15/2017. TECHNIQUE: Contiguous axial imaging was performed from the skull base to vertex without intravenous administration of contrast. DLP: 610.48 mGy-cm FINDINGS: There is no acute intracranial hemorrhage or abnormal extra-axial collection. No intracranial mass effect or midline shift. Lateral and third ventricles are normal. No hydrocephalus. Alvarez-white matter differentiation is grossly preserved and there is no evidence of acute territorial infarct. The calvarium and skull base are intact. Mastoid air cells and middle ear cavities are well aerated. Visualized paranasal sinuses are well aerated. IMPRESSION: Unremarkable CT scan of the head. No evidence of acute territorial infarct or hemorrhage. DICTATED BY : Grace HO,Edward Modi DATE/TIME DICTATED:11/19/171537 [place] ARTIST: CHARLETTE DATE/TIME TRANSCRIBED:11/19/171537 CONFIDENTIAL, DO NOT COPY WITHOUT APPROPRIATE AUTHORIZATION. <Electronically signed in Other Vendor System> SIGNED BY: Grace HOEdward QuiñonesAlisa 11/19/17 1543 Initial ED EKG: sinus rhythm @66bpm, nonspecific ST changes Prior EKG: unchanged (11/17/17) (Kandace HAJI,Laurel Collazo) Departure Departure Disposition: HOME OR SELF CARE Condition: Stable Clinical Impression Primary Impression: Hypertension Qualifiers: Hypertension type: unspecified Qualified Code: I10 - Essential ( primary) hypertension Secondary Impressions: Post-op pain Referrals: Viv Nam MD (PCP/Family) Additional Instructions: Take Zofran as prescribed for nausea, take this medication 20-30 minutes prior to taking her pain medication, take this medication up to 3 times a day. Begin morphine tablets for your pain. Not take this medication with Percocet, you may take either set, which ever helps relieve your pain more. In between doses of morphine you may take 650mg tylenol. Follow-up with your orthopedic doctor. Check her blood pressure later today and tomorrow, return with any further episodes of high blood pressure or other concerns. Please note that there might be incidental findings in your evaluation that are unrelated to the current emergency department visit. Please notify your primary care doctor about this emergency department visit in order to obtain and review all of the testing performed so that these incidental findings can be monitored as needed. If you had an x-ray performed, please understand that some fractures may not be seen on the initial set of x-rays. If your symptoms persist you might need a repeat set of x-rays to check for such a fracture. If you had a laceration evaluated, please understand that foreign bodies such as glass or wood may not be visible to the naked eye or on plain x-rays. If the wound becomes red, swollen, increasingly more painful or if there is any drainage from the wound, please have it reevaluated by a physician for the possibility of a retained foreign body. If you're unable to follow up as outlined in the discharge instructions please return to the emergency department. Thank you for choosing the [facility] Emergency Department for your care. It was a pleasure to serve you today. Departure Forms: Customer Survey General Discharge Information Prescriptions: Current Visit Scripts Morphine Sulfate (Morphine Sulfate ER) 1 TAB PO BIDP PRN pain #15 TAB Ondansetron (Zofran Odt) 1 TAB SL TID PRN nausea #20 TAB (Kandace HAJI,Laurel Collazo) Departure Comments I saw and personally examined the patient and I agree with the PAs evaluation. The patient presented with ongoing pain to the left leg. Elevated blood pressure. Her pressure came down. Her labs were unremarkable. The left knee was not warm or red. Pain medication was revised. She will follow-up with her orthopedist as scheduled. (Jerson Archer DO) Critical Care Note Critical Care Note Critical Care Time: non-applicable (Kandace HAJI,Laurel Collazo)
[2017-11-19 16:46] LABS: ABSOLUTE BASOPHIL COUNT 0 /CUMM (0.0-0.2); ABSOLUTE EOSINOPHIL COUNT 0.2 /CUMM (0.0-0.7); ABSOLUTE GRANULOCYTE CT 5.2 /CUMM (1.4-6.5); ABSOLUTE LYMPH COUNT 1.8 /CUMM (1.2-3.4); ABSOLUTE MONOCYTE COUNT 0.6 /CUMM (0.10-0.60); BASOPHIL % 0.4 % (0.0-2.0); EOSINOPHIL % 2.1 % (0-5); GRANULOCYTE % 66.9 % (42.2-75.2); HEMATOCRIT 35.4 % (37-47); MEAN CORPUSCULAR HGB 27.3 PG (27.0-31.0); MEAN CORPUSCULAR HGB CONC 31.8 G/DL (33.0-37.0); MEAN CORPUSCULAR VOLUME 85.8 FL (81.0-99.0); MEAN PLATELET VOLUME 7.8 FL (7.4-10.4); PLATELET COUNT 391 /CUMM (130-400); RBC DISTRIBUTION WIDTH 15.9 % (11.5-14.5); RED BLOOD CELL CT 4.13 /CUMM (4.20-5.40); WHITE BLOOD CELL COUNT 7.8 /CUMM (4.8-10.8)
[2017-11-19] MEDS ORDERED: ZOFRAN ODT4 M1 SL (18:20)
[2017-11-19] MEDS ORDERED: MORPHINE SULFAT15 M3 PO (18:20)
[2017-11-19 18:35] VITALS: BP 160/80
== END 2017-11-19 18:46 ==
LOC: ERH 14:11
PROVIDERS: Physician Assistant
DX: I10 Essential (primary) hypertension (principal); G89.18 Other acute postprocedural pain; R51 Headache; R10.11 Right upper quadrant pain; R10.12 Left upper quadrant pain; R11.0 Nausea
CPT/HCPCS: 93005; 93010; 96372; 96374; J2405